=== PATIENT | male | born 1970 | race African-American/Black ===

== ENCOUNTER 2017-07-13 10:31 | Emergency (ER) | payer SELFPAY ==
[~2017-07-13] VITALS: Ht 177.8 cm; Wt 79.4 kg
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
[2017-07-13 11:09] LABS: BASO % 0 % (0-3); EOS % 3 % (0-3); HEMATOCRIT 31.1 % (39.0-53.0); LYMPH # 1.2 x10^3/uL (1.0-4.8); LYMPH % 26 % (24-48); MEAN CORPUSCULAR HEMOGLOBIN 31 pg (25-35); MEAN CORPUSCULAR HGB CONC 32 g/dL (31-37); MEAN CORPUSCULAR VOLUME 95 fL (79-100); MONO % 15 % (0-9); NEUT % 56 % (31-73); PLATELET COUNT 214 x10^3/uL (140-400); RED BLOOD COUNT 3.28 x10^6/uL (4.30-5.70); RED CELL DISTRIBUTION WIDTH 21.6 % (11.5-14.5); WHITE BLOOD COUNT 4.6 x10^3/uL (4.0-11.0)
[2017-07-13 11:27] LABS: ALBUMIN/GLOBULIN RATIO 0.6 (1.0-1.7); CREATININE 13.7 mg/dL (0.7-1.3); GFR 4.7; TOTAL BILIRUBIN 0.5 mg/dL (0.2-1.0)
[2017-07-13 11:31] LABS: POTASSIUM 7.2 mmol/L (3.5-5.1)
[2017-07-13 11:37] LABS: CKMB MASS 2.2 ng/mL (0.0-3.6)
[2017-07-13 11:49] LABS: ANISOCYTOSIS MOD; PLT ESTIMATE ADEQUATE (ADEQUATE)
[2017-07-13 11:51] LABS: POLYCHROMASIA SLIGHT
--- NOTE | 2017-07-13 11:52 | RAD ---
Examination: 2 views of chest. History: History of shortness of breath Comparison: None available Findings: Mild cardiomegaly identified. There is mild prominent appearing bilateral interstitial lung markings likely mild congestive changes. Trace right pleural effusion. Impression: 1. Mild prominent appearing bilateral interstitial lung markings likely mild congestive change. 2. Trace right pleural effusion.
--- NOTE | 2017-07-13 11:57 | EKG ---
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
[2017-07-13 12:00] VITALS: BP 189/118
[2017-07-13] MEDS ORDERED: LIDO30CR TP (19:33)
[2017-07-13] MEDS ORDERED: ACET325T9 PO (19:43)
[2017-07-13] MEDS ORDERED: ONDA4TAB12 PO (19:43)
[2017-07-13] MEDS ORDERED: CLON0.1T PO (19:43)
[2017-07-13] MEDS ORDERED: POLY17PO29 PO (19:43)
[2017-07-13] MEDS ORDERED: SENN-37 PO (19:43)
[2017-07-13] MEDS ORDERED: SEVE2.4P PO (19:43)
[2017-07-13] MEDS ORDERED: CARV12.5 PO (19:43)
[2017-07-13] MEDS ORDERED: [UNRECOGNIZED DRUG - CODE] PO (19:47)
[2017-07-13] MEDS ORDERED: HYDR-971 PO (19:47)
[2017-07-13] MEDS ORDERED: CALC500T PO ×2 (19:49)
[2017-07-13] MEDS ORDERED: LACT20SO PO (19:51)
== END 2017-07-13 12:40 | disposition left against medical advice (07) ==
LOC: ER 10:31
DX: I12.9 Hypertensive chronic kidney disease with stage 1 through stage 4 chronic kidney disease, or unspecified chronic kidney disease (principal); N18.9 Chronic kidney disease, unspecified; E87.5 Hyperkalemia; Z99.2 Dependence on renal dialysis; Z86.73 Personal history of transient ischemic attack (TIA), and cerebral infarction without residual deficits
CPT/HCPCS: 36415; 71020; 80053; 82553; 84484; 85025; 93005; 99285-25

== ENCOUNTER 2017-07-13 17:59 | Observation (INO) | payer SELFPAY ==
[~2017-07-13] VITALS: Ht 177.8 cm; Wt 76.0 kg
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
[2017-07-13 19:15] VITALS: BP 171/127
[2017-07-13 19:30] VITALS: BP 192/116
[2017-07-13] MEDS ORDERED: LIDO30CR TP (19:33)
[2017-07-13] MEDS ORDERED: CLON0.1T PO (19:43)
[2017-07-13] MEDS ORDERED: SEVE2.4P PO (19:43)
[2017-07-13] MEDS ORDERED: ONDA4TAB12 PO (19:43)
[2017-07-13] MEDS ORDERED: ACET325T9 PO (19:43)
[2017-07-13] MEDS ORDERED: CARV12.5 PO (19:43)
[2017-07-13] MEDS ORDERED: SENN-37 PO (19:43)
[2017-07-13] MEDS ORDERED: POLY17PO29 PO (19:43)
[2017-07-13] MEDS ORDERED: HYDR-971 PO (19:47)
[2017-07-13] MEDS ORDERED: [UNRECOGNIZED DRUG - CODE] PO (19:47)
[2017-07-13] MEDS ORDERED: CALC500T PO ×2 (19:49)
[2017-07-13] MEDS ORDERED: LACT20SO PO (19:51)
[2017-07-13] MEDS ORDERED: IV NORMAL SALINE 1000ML BAG 1,000 ML IV PRN ×2 (19:54)
[2017-07-13 20:00] VITALS: BP 188/118
[2017-07-13] MEDS ORDERED: DIALYSIS PATIENT. MC PRN (20:00)
[2017-07-13] MEDS ORDERED: diphenhydrAMINE 50 MG/ML VIAL IV PRN ×2 (20:00)
[2017-07-13 20:15] VITALS: BP 187/119
[2017-07-13] MEDS ORDERED: cloNIDine TTS-2 1 PATCH PATCH TD ONE (21:30)
[2017-07-13 22:00] VITALS: BP 183/96
[2017-07-14] VITALS (9 sets, daily range): BP systolic 138–175; BP diastolic 87–99
[2017-07-14] MEDS ORDERED: diphenhydrAMINE HCL 25 MG CAPSULE PO ONE
[2017-07-14] MEDS ORDERED: CARVEDILOL 12.5 MG TABLET. PO ONE (00:15)
--- NOTE | 2017-07-14 02:09 | ACF ---
Admission Forms Criteria HYPONATREMIA; HYPERNATREMIA; HYPOKALEMIA; HYPERKALEMIA; HYPOCALCEMIA; HYPERCALCEMIA Clinical Indications for Inpatient Care (Place 'X' for any and all applicable criteria): Ongoing inpatient care may be indicated for ANY ONE of the following [G](1)(2)(3 )(5): [ ]I. Hyponatremia with ANY ONE of the following: [ ]a) Sodium less than 130 mEq/L (mmol/L) (new) (6)(22) [ ]b) Sodium less than 135 mEq/L (mmol/L) with ANY ONE of the following: [ ]i) Severe medical etiology requiring inpatient management (eg, heart failure, hypovolemia) [ ]ii) Altered mental status [ ]iii) Seizures [ ]II. Hypernatremia with ANY ONE of the following: [ ]a) Sodium greater than 155 mEq/L (mmol/L) [ ]b) Sodium greater than 150 mEq/L (mmol/L) with ANY ONE of the following: [ ] i) Altered mental status [ ]ii) Seizures [ ]iii) Severe medical etiology (eg, hypovolemia, diabetes insipidus) [ ]iv) Severe weakness [ ]v) Severe medical etiology (eg, hemolysis, infection, drug overdose) [ ]III. Hypokalemia with ANY ONE of the following: [ ]a) Potassium less than 2.5 mEq/L (mmol/L) despite outpatient and emergency treatment [ ]b) Potassium less than 3.0 mEq/L (mmol/L) with ANY ONE of the following: [ ]i) Weakness [ ]ii) Cardiac abnormality (eg, arrhythmia, conduction disturbance) [ ]iii) Cardiac ischemia [ ]iv) Ileus [ ]v) Ongoing medical cause requiring inpatient management. ( e.g., acute renal wasting, SIADH) [ ]vi) Other severe symptoms [X] IV. Hyperkalemia with ANY ONE of the following: [X]a) Potassium greater than 6.5 mEq/L (mmol/L) [ ]b) Potassium greater than 5 mEq/L (mmol/L) with ANY ONE of the following: [ ]i) Severe ECG findings [H] [ ]ii) Acute worsening of renal failure (creatinine greater than 2.5 mg/dL (221 micromoles/L) or significant elevation for age and size) [ ] V. Hypocalcemia with ANY ONE of the following: [ ]a) Calcium less than 7 mg/dL (1.75 mmol/L) despite outpatient and emergency treatment(19) [ ]b) Calcium less than 8 mg/dL (2 mmol/L) with significant symptoms or findings; examples include: [ ]i) Cardiac abnormality (eg, arrhythmia or conduction disturbance) [ ]ii) Altered mental status [ ]iii) Seizures [ ]iv) Breathing difficulty [ ]v) Muscle spasms [ ]. Hypercalcemia with ANY ONE of the following: [ ]a) Calcium greater than 14 mg/dL (3.5 mmol/L) [ ]b) Calcium greater than 12 mg/dL (3 mmol/L) with ANY ONE of the following: [ ]i) Significant dehydration or hypovolemia as indicated by ANY ONE of the following(2): [ ]1. Clinically significant dehydration as indicated by ANY ONE of the following: [ ]A. Acute loss of weight from baseline (5% of body weight in adults, 9% in pediatric patients) [ ]B. Hemodynamic instability [ ]C. Acute renal failure [ ]D. Serum sodium greater than 150 mEq/L (mmol/L) [ ]2) Dehydration that is persistent indicated by ALL of the following: [ ]A. Oral rehydration therapy not tolerated or insufficient to adequately correct dehydration [ ]B. Appropriate intravenous treatment (eg, fluids ) does not readily correct dehydration ie, after 12 to 24 hours of treatment) [ ]ii) Significant symptoms or findings; examples include: [ ]1) Altered mental status [ ]2) Cardiac abnormality (eg, arrhythmia, conduction disturbance) [ ]3) Cardiac abnormality (eg, arrhythmia, conduction disturbance) The original [facility] content created by [facility] has been revised. The portions of the content which have been revised are identified through the use of italic text or in bold, and [facility] [employer] has neither reviewed nor approved the modified material. All other unmodified content is copyright [facility] [employer] Please see references footnoted in the original [facility] [employer] edition 2016 Admission Criteria Met?: Yes ISABELLA LARRY Jul 14, 2017 02:09
--- NOTE | 2017-07-14 06:22 | EKG ---
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
[2017-07-14] MEDS ORDERED: CARVEDILOL 12.5 MG TABLET. PO SCH (09:00)
--- NOTE | 2017-07-14 10:16 | PDOC2 ---
CONSULT Date of Consult Date of Consult DATE: 07/14/17 TIME: 10:08 Reason for Consult Reason for Consult: HIGH K Referring Physician Referring Physician: ZULEMA Identification/Chief Complaint Chief Complaint SOB Problems: Source Source: Chart review, Patient History of Present Illness Reason for Visit: THIS IS A 47 YR OLD WHO CAME IN YESTERDAY AM WITH SOB. LABS SHOWED A K OF 7.2. HE WENT AWAY AMA AND THEN CAME BACK LATER IN THE DAY. WOULD NOT ALLOW ANOTHER BLOOD DRAW. WAS AGREEABLE TO BE ADMITTED AND UNDERWENT EMERGENT HD LAST NIGHT. HE IS [facility] PT WHO IS NON COMPLIANT AND HAS MISSED MORE THAN A WEEK OF DIALYSIS Past Medical History Cardiovascular: HTN Heme/Onc: Anemia NOS Renal/: Chronic renal failure Endocrine: Hyperparathyroidism Past Surgical History Past Surgical History LEFT ARM AV ACCESS Family History Family History: Hypertension Social History Social History UNRELIABLE HE IN NOT COOPERATIVE No Current Problem List Problem List Problems Medical Problems: (1) Hyperkalemia Status: Acute (2) Renal failure Status: Acute Current Medications Current Medications Current Medications Sodium Chloride 1,000 ml @ 1,000 mls/hr Q1H PRN IV hypotension; Start 07/13/17 at 19:54; Stop 07/14/17 at 01:53; Status DC Diphenhydramine HCl (Benadryl) 25 mg 1X PRN PRN IV ITCHING; Start 07/13/17 at 20:00; Stop 07/14/17 at 19:59 Diphenhydramine HCl (Benadryl) 25 mg 1X PRN PRN IV ITCHING; Start 07/13/17 at 20:00; Stop 07/14/17 at 19:59 Sodium Chloride 1,000 ml @ 400 mls/hr Q2H30M PRN IV PATENCY; Start 07/13/17 at 19:54; Stop 07/14/17 at 07:53; Status DC Info (PHARMACY MONITORING -- do not chart) 1 each PRN DAILY PRN MC SEE COMMENTS ; Start 07/13/17 at 20:00 Clonidine HCl (Catapres Tts-2) 1 patch 1X ONCE TD Last administered on 00:00; Start 07/13/17 at 21:30; Stop 07/13/17 at 21:31; Status DC Carvedilol (Coreg) 25 mg BIDWMEALS PO Last administered on 07/14/17 09:08; Start 07/14/17 at 09:00 Diphenhydramine HCl (Benadryl) 25 mg 1X ONCE PO Last administered on 00:01; Start 07/14/17 at 00:00; Stop 07/14/17 at 00:01; Status DC Carvedilol (Coreg) 25 mg 1X ONCE PO Last administered on 07/14/17 00:01; Start 07/14/17 at 00:15; Stop 07/14/17 at 00:16; Status DC Active Scripts Active Reported Lactulose 20 Gm/30 Ml Solution 30 Gm PO prn hyperkalemia Calcium Carbonate 500 Mg Tablet 500 Mg PO Q4HRS PRN Calcium Carbonate 500 Mg Tablet 500 Mg PO QIDACHS Sodium Polystyrene Sulfonate 30 Gm/120 Ml Enema 30 Gm PO prn for hyperkalemia [place] 5-325 Tablet (Acetaminophen/Hydrocodone Bitart) 1 Each Tablet 1 Tab PO Q4HRS PRN Clonidine Hcl 0.1 Mg Tablet 0.1 Mg PO Q12HR give for SBP>160 or DBP>110 Tylenol (Acetaminophen) 325 Mg Tablet 650 Mg PO Q4HRS PRN Ondansetron Odt (Ondansetron) 4 Mg Tab.rapdis 4 Mg PO TIDBFRMEAL PRN Renvela (Sevelamer Carbonate) 2.4 Gm Powd.pack 0.8 Gm PO TIDWMEALS Senokot-S Tablet (Sennosides/Docusate Sodium) 1 Each Tablet 1 Tab PO BID Coreg (Carvedilol) 12.5 Mg Tablet 1 Tab PO BID Miralax (Polyethylene Glycol 3350) 17 Gm Powd.pack 1 Packet PO DAILY Lidocaine-Prilocaine Cream (Lidocaine/Prilocaine) 30 Gm Cream..g. 1 Gilma TP UD apply to fistula Q mon, wed, fri. Allergies Allergies: Coded Allergies: No Known Drug Allergies (Unverified , 12/06/13) ROS Review of System UNABLE TO GET, HE IS NOT COOPERATIVE Physical Exam General: Alert, Cooperative, No acute distress HEENT: Atraumatic, PERRLA Lungs: Clear to auscultation Heart: Regular rate Abdomen: Normal bowel sounds, No tenderness Extremities: No clubbing, No edema Neuro: Normal speech Psych/Mental Status: Other (VERY ANGRY MOOD) MUSCULOSKELETAL: No deformity, Other (AV ACCESS HAS A GOOD THRILL AND BRUIT) Vitals VITALS Vital Signs Date Time Temp Pulse Resp B/P (MAP) Pulse Ox O2 Delivery O2 Flow Rate FiO2 07/14/17 09:08 88 154/97 07/14/17 06:00 20 88 Room Air 07/14/17 04:00 98.9 98.9 07/13/17 23:59 2.0 Labs Labs Laboratory Tests Test 07/13/17 21:05 Potassium Level 3.6 mmol/L (3.5-5.1) Laboratory Tests Test 07/13/17 21:05 Potassium Level 3.6 mmol/L (3.5-5.1) Assessment/Plan Assessment/Plan IMP HYPERVOLEMIA HYPERKALEMIA ESRD ANEMIA PROBABLY NON COMPLIANCE PLAN HD EMERGENTLY DONE LAST NIGHT REFUSES DIALYSIS TODAY ALSO REFUSING LAB DRAWS TODAY POST HD LAB YESTERDAY DRAWN VIA MACHINE WAS WNL HE LOOKS STABLE WITHOUT ANY DYSPNEA AND K WNL WHEN LAST CHECKED SINCE HE DOES NOT WANT ANYTHING FURTHER DONE SUGGEST D/C HOME HE CAN GO BACK TO HIS CHRONIC UNIT AT SCHEDULED TIME ENC COMPLIANCE MARLYS HAGEN MD Jul 14, 2017 10:16
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
== END 2017-07-14 15:30 ==
LOC: ER 17:59 → 1 WEST ICU 18:44 → INTOOBSV 18:44
PROVIDERS: ADMIT Internal Medicine; ATTEND Internal Medicine
DX: E87.5 Hyperkalemia (principal); I12.0 Hypertensive chronic kidney disease with stage 5 chronic kidney disease or end stage renal disease; N18.6 End stage renal disease; E21.3 Hyperparathyroidism, unspecified; I69.354 Hemiplegia and hemiparesis following cerebral infarction affecting left non-dominant side; Z99.2 Dependence on renal dialysis; Z91.15 Patient's noncompliance with renal dialysis; Z82.49 Family history of ischemic heart disease and other diseases of the circulatory system
CPT/HCPCS: 36415; 71020; 80053; 82553; 84132; 84484; 85025; 87641; 93005; 99291; G0378; Q0163; G0379

== ENCOUNTER 2017-07-26 00:44 | Inpatient (IN) | payer MEDICARE, OTHER ==
[~2017-07-26] VITALS: Ht 177.8 cm; Wt 71.2 kg
[2017-07-26] VITALS (21 sets, daily range): BP systolic 105–182; BP diastolic 66–114
[~2017-07-26 00:44] MED LIST: ACET325T9 PO; CALC500T PO; CARV12.5 PO; CLON0.1T PO; HYDR-971 PO; LACT20SO PO; LIDO30CR TP; ONDA4TAB12 PO; POLY17PO29 PO; SENN-37 PO; SEVE2.4P PO; [UNRECOGNIZED DRUG - CODE] PO
[2017-07-26] MEDS ORDERED: ONDANSETRON PF 4 MG/2 ML VIAL. IV ONE (01:00)
[2017-07-26] MEDS ORDERED: ONDANSETRON PF 4 MG/2 ML VIAL. ONE (01:01)
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
[2017-07-26 01:28] LABS: CALCIUM 9.2 mg/dL (8.5-10.1); CREATININE 7.5 mg/dL (0.7-1.3); GFR 9.5; POTASSIUM 4.3 mmol/L (3.5-5.1)
[2017-07-26] MEDS ORDERED: IOHEXOL 300 MG/ML 75 ML VIAL ONE (01:30)
[2017-07-26 01:35] LABS: ALBUMIN/GLOBULIN RATIO 0.6 (1.0-1.7); TOTAL BILIRUBIN 0.5 mg/dL (0.2-1.0); TOTAL PROTEIN 7.7 g/dL (6.4-8.2)
[2017-07-26 01:37] LABS: BASO # 0.1 x10^3/uL (0.0-0.2); BASO % 1 % (0-3); EOS % 4 % (0-3); HEMATOCRIT 32.1 % (39.0-53.0); HEMOGLOBIN 10.4 g/dL (13.0-17.5); LYMPH # 1.1 x10^3/uL (1.0-4.8); LYMPH % 25 % (24-48); MEAN CORPUSCULAR HEMOGLOBIN 30 pg (25-35); MEAN CORPUSCULAR HGB CONC 32 g/dL (31-37); MEAN CORPUSCULAR VOLUME 93 fL (79-100); MONO % 18 % (0-9); NEUT % 52 % (31-73); PLATELET COUNT 182 x10^3/uL (140-400); RED BLOOD COUNT 3.46 x10^6/uL (4.30-5.70); RED CELL DISTRIBUTION WIDTH 19.8 % (11.5-14.5); WHITE BLOOD COUNT 4.5 x10^3/uL (4.0-11.0)
[2017-07-26] MEDS ORDERED: IOHEXOL 300 MG/ML 75 ML VIAL IV ONE (01:45)
--- NOTE | 2017-07-26 02:26 | RAD ---
INDICATION: chest/abd pain; Omni 300, 75ml COMPARISON: None. TECHNIQUE: Axial CT images obtained through the chest abdomen and pelvis with intravenous contrast. One or more of the following individualized dose reduction techniques were utilized for this examination: 1. Automated exposure control; 2. Adjustment of the mA and/or kV according to patient size; 3. Use of iterative reconstruction technique. FINDINGS: Chest: There are some cystic changes in the bilateral lungs. Mild groundglass opacities. Small right-sided pleural effusion. No evidence of pneumothorax. Linear opacities right lung. Fluid is seen throughout the mediastinum. The heart appears enlarged including the atria. Coronary artery calcific atherosclerosis. No thoracic aortic aneurysm. ABDOMEN: Moderate calcific atherosclerosis without abdominal aortic aneurysm. There is edema throughout the soft tissues. Small amount of ascites. Some of the regions measure higher than simple attenuation. No intrahepatic bile duct dilation. The gallbladder appears partially contracted with possible pericholecystic edema. Pancreas enhances. Spleen grossly unremarkable. The right kidney is displaced medially by the adjacent liver. No hydronephrosis. Bladder is largely decompressed. No definite dilated loops of bowel to suggest obstruction. IMPRESSION: Diffuse edema to the soft tissues with a small amount of ascites as well as right pleural effusion. Could be secondary to causes such as volume overload. A portion of the ascites measures slightly higher than simple attenuation. Given this finding a small amount of debris or blood within it is possible. There is also some fluid seen throughout the mediastinum. The heart is enlarged including atrial enlargement. Linear opacity right lung. Could be secondary to a region of atelectasis given the morphology which is the most likely cause with infiltrate considered less likely cause. Liver appears enlarged with deviation of the right kidney medially. Gallbladder appears partially contracted with suspected pericholecystic edema. Would correlate with symptoms in the region and if the patient has any symptoms and may be helpful to obtain a follow-up ultrasound or nuclear hepatobiliary scan to further evaluate and ensure that there is not gallbladder disease. Electronically signed by: Donovan Yung MD (07/26/2017 2:22 AM) [id number]
[2017-07-26] MEDS ORDERED: fentaNYL PF VIAL 100 MCG/2 ML VIAL IV PRN (03:00)
[2017-07-26] MEDS ORDERED: LABETALOL 20 MG/4 ML DISP.SYRIN. IVP ONE ×2 (03:00→06:15)
[2017-07-26] MEDS ORDERED: ONDANSETRON PF 4 MG/2 ML VIAL. IV PRN (03:00)
--- NOTE | 2017-07-26 06:23 | EKG ---
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
[2017-07-26] MEDS: SENNOSIDES/DOCUSATE 8.6/50MG TABLET. PO SCH ×2 (10:00→21:00)
[2017-07-26] MEDS ORDERED: ONDANSETRON ODT 4 MG TAB.RAPDIS. PO PRN (10:15)
[2017-07-26] MEDS ORDERED: ACETAMINOPHEN 325 MG TABLET. PO PRN (10:15)
[2017-07-26] MEDS ORDERED: CALCIUM CARBONATE 500 MG TABLET PO PRN (10:15)
[2017-07-26] MEDS ORDERED: HYDROcodone/APAP 5/325MG 1 TAB TABLET PO PRN (10:15)
[2017-07-26] MEDS: POLYETHYLENE GLYCOL 3350 17 GM PACKET. PO SCH (11:00)
[2017-07-26] MEDS ORDERED: cloNIDine TTS-3 1 PATCH PATCH.TDWK TD SCH (11:00)
--- NOTE | 2017-07-26 11:20 | RAD ---
EXAM: Abdomen sonogram. HISTORY: Pain. TECHNIQUE: Sonographic imaging of the abdomen was performed. COMPARISON: CT obtained on the same date. FINDINGS: The liver is enlarged. No focal hepatic lesion is seen. There is cholelithiasis. There is gone or wall thickening. The right kidney measures 8.9 cm [id number] and the left kidney measures 11.1 cm [id number]. No solid or cystic renal lesion is seen. There is no hydronephrosis. The pancreas, spleen, aorta and inferior vena cava are unremarkable. The common bile duct is normal in caliber, measuring 3 mm. IMPRESSION: 1. Cholelithiasis. There is superimposed gallbladder wall thickening which may be due to cholecystitis or intrinsic liver disease. Correlate with symptomatology. 2. Hepatomegaly. 3. Mildly decreased right renal size. This is likely underestimated due to slight under rotation of the right kidney demonstrated on the recent CT.
[2017-07-26] MEDS: CALCIUM CARBONATE 500 MG TABLET PO SCH ×3 (11:30→21:00)
[2017-07-26] MEDS ORDERED: LIDOCAINE/PRILOCAINE TOPICAL CREAM 5GM TUBE. TP SCH (11:30)
[2017-07-26] MEDS: SEVELAMER CARBONATE 800 MG TABLET. PO SCH ×2 (12:00→17:00)
--- NOTE | 2017-07-26 12:05 | PDOC2 ---
CONSULT Date of Consult Date of Consult DATE: 07/26/17 TIME: 11:59 Reason for Consult Reason for Consult: ESRD Referring Physician Referring Physician: ZULEMA Identification/Chief Complaint Chief Complaint ABD PAIN WITH N/V Problems: Source Source: Chart review, Patient History of Present Illness Reason for Visit: THIS IS A 47 YR OLD NON COMPLIANT ESRD PT ON OP HD ON MWF. ADMITTED WITH ABD PAIN/N/V AND INCREASED BP. LABS ARE C/W ESRD. ABD PAIN EVAL ONGOING. 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 Current Problem List Problem List Problems Medical Problems: (1) Hypertension Status: Acute (2) Intractable abdominal pain Status: Acute Current Medications Current Medications Current Medications Ondansetron HCl (Zofran) 4 mg STK-MED ONCE .ROUTE ; Start 07/26/17 at 01:01; Stop 07/26/17 at 01:02; Status DC Ondansetron HCl (Zofran) 4 mg 1X ONCE IV Last administered on 07/26/17 01:04 ; Start 07/26/17 at 01:00; Stop 07/26/17 at 01:04; Status DC Iohexol (Omnipaque 300 Mg/ml) 75 ml STK-MED ONCE .ROUTE ; Start 07/26/17 at 01: 30; Stop 07/26/17 at 01:31; Status DC Iohexol (Omnipaque 300 Mg/ml) 75 ml 1X ONCE IV Last administered on 07/26/17 01:37; Start 07/26/17 at 01:45; Stop 07/26/17 at 01:46; Status DC Labetalol HCl (Normodyne) 10 mg 1X ONCE IVP Last administered on 07/26/17 03: 01; Start 07/26/17 at 03:00; Stop 07/26/17 at 03:01; Status DC Ondansetron HCl (Zofran) 4 mg PRN Q8HRS PRN IV NAUSEA/VOMITING; Start 07/26/17 at 03:00; Stop 07/27/17 at 02:59 Fentanyl Citrate (Fentanyl 2ml Vial) 50 mcg PRN Q2HR PRN IV PAIN; Start at 03:00; Stop 07/27/17 at 02:59 Labetalol HCl (Normodyne) 20 mg 1X ONCE IVP Last administered on 07/26/17t 06: 12; Start 07/26/17 at 06:15; Stop 07/26/17 at 06:16; Status DC Acetaminophen (Tylenol) 650 mg Q4HRS PRN PO PAIN; Start 07/26/17 at 10:15 Calcium Carbonate/ Glycine (Oscal) 500 mg Q4HRS PRN PO INDIGESTION; Start 07/26 at 10:15 Calcium Carbonate/ Glycine (Oscal) 500 mg QIDACHS PO ; Start 07/26/17 at 11:30 Acetaminophen/ Hydrocodone Bitart (Lortab 5/325) 1 tab Q4HRS PRN PO PAIN; Start 07/26/17 at 10:15 Lidocaine/ Prilocaine (Emla) 1 gilma 1XDIA TP ; Start 07/26/17 at 11:30; Status UNV Ondansetron HCl (Zofran Odt) 4 mg TIDBFRMEAL PRN PO NAUSEA/VOMITING; Start at 10:15 Polyethylene Glycol (miraLAX PACKET) 17 gm DAILY PO ; Start 07/26/17 at 11:00 Senna/Docusate Sodium (Senna Plus) 1 tab BID PO ; Start 07/26/17 at 10:00 Sevelamer Carbonate (Renvela) 800 mg TIDWMEALS PO ; Start 07/26/17 at 12:00 Clonidine HCl (Catapres Tts-3) 1 patch WEEKLY TD ; Start 07/26/17 at 11:00 Carvedilol (Coreg) 25 mg BIDWMEALS PO ; Start 07/26/17 at 11:00 Active Scripts Active Reported Lactulose 20 Gm/30 Ml Solution 30 Gm PO prn hyperkalemia Calcium Carbonate 500 Mg Tablet 500 Mg PO Q4HRS PRN Calcium Carbonate 500 Mg Tablet 500 Mg PO QIDACHS Sodium Polystyrene Sulfonate 30 Gm/120 Ml Enema 30 Gm PO prn for hyperkalemia Selden 5-325 Tablet (Acetaminophen/Hydrocodone Bitart) 1 Each Tablet 1 Tab PO Q4HRS PRN Clonidine Hcl 0.1 Mg Tablet 0.1 Mg PO Q12HR give for SBP>160 or DBP>110 Tylenol (Acetaminophen) 325 Mg Tablet 650 Mg PO Q4HRS PRN Ondansetron Odt (Ondansetron) 4 Mg Tab.rapdis 4 Mg PO TIDBFRMEAL PRN Renvela (Sevelamer Carbonate) 2.4 Gm Powd.pack 0.8 Gm PO TIDWMEALS Senokot-S Tablet (Sennosides/Docusate Sodium) 1 Each Tablet 1 Tab PO BID Coreg (Carvedilol) 12.5 Mg Tablet 1 Tab PO BID Miralax (Polyethylene Glycol 3350) 17 Gm Powd.pack 1 Packet PO DAILY Lidocaine-Prilocaine Cream (Lidocaine/Prilocaine) 30 Gm Cream..g. 1 Gilma TP UD apply to fistula Q mon, wed, fri. Allergies Allergies: Coded Allergies: No Known Drug Allergies (Unverified , 12/06/13) ROS General: YES: Fatigue, Malaise, Appetite PSYCHOLOGICAL ROS: YES: Anxiety Eyes: Yes Decreased vision Respiratory: YES: Cough Gastrointestinal: Yes Nausea, Yes Vomiting, Yes Abdominal Pain Genitourinary: YES Other (ANURIA) Musculoskeletal: Yes Muscular Weakness Neurological: Yes Weakness Skin: Yes Dry Skin Physical Exam General: Alert, Cooperative, No acute distress HEENT: Atraumatic, PERRLA, EOMI Lungs: Clear to auscultation, Normal air movement Heart: Regular rate, Normal S1, Normal S2 Abdomen: Normal bowel sounds, Soft, No tenderness, Other (RUQ TENDERNESS TO PALPATION) Extremities: No clubbing, No edema Skin: No rashes Neuro: Normal speech, Cranial nerves 3-12 NL Psych/Mental Status: Other (FLAT AFFECT) MUSCULOSKELETAL: No joint tenderness, No deformity, No swelling, Other (LEFT ARM AVF HAS A GOOD THRILL AND BRUIT) Vitals VITALS Vital Signs Date Time Temp Pulse Resp B/P (MAP) Pulse Ox O2 Delivery O2 Flow Rate FiO2 07/26/17 07:00 Nasal Cannula 2.0 07/26/17 06:12 84 184/119 07/26/17 03:35 98.4 25 92 98.4 Labs Labs Laboratory Tests Test 07/26/17 01:06 White Blood Count 4.5 x10^3/uL (4.0-11.0) Red Blood Count 3.46 x10^6/uL (4.30-5.70) Hemoglobin 10.4 g/dL (13.0-17.5) Hematocrit 32.1 % (39.0-53.0) Mean Corpuscular Volume 93 fL (79-100) Mean Corpuscular Hemoglobin 30 pg (25-35) Mean Corpuscular Hemoglobin Concent 32 g/dL (31-37) Red Cell Distribution Width 19.8 % (11.5-14.5) Platelet Count 182 x10^3/uL (140-400) Neutrophils (%) (Auto) 52 % (31-73) Lymphocytes (%) (Auto) 25 % (24-48) Monocytes (%) (Auto) 18 % (0-9) Eosinophils (%) (Auto) 4 % (0-3) Basophils (%) (Auto) 1 % (0-3) Neutrophils # (Auto) 2.3 x10^3uL (1.8-7.7) Lymphocytes # (Auto) 1.1 x10^3/uL (1.0-4.8) Monocytes # (Auto) 0.8 x10^3/uL (0.0-1.1) Eosinophils # (Auto) 0.2 x10^3/uL (0.0-0.7) Basophils # (Auto) 0.1 x10^3/uL (0.0-0.2) Sodium Level 140 mmol/L (136-145) Potassium Level 4.3 mmol/L (3.5-5.1) Chloride Level 99 mmol/L (98-107) Carbon Dioxide Level 28 mmol/L (21-32) Anion Gap 13 (6-14) Blood Urea Nitrogen 48 mg/dL (8-26) Creatinine 7.5 mg/dL (0.7-1.3) Estimated GFR (Cockcroft-Gault) 9.5 BUN/Creatinine Ratio 6 (6-20) Glucose Level 116 mg/dL (70-99) Calcium Level 9.2 mg/dL (8.5-10.1) Total Bilirubin 0.5 mg/dL (0.2-1.0) Aspartate Amino Transf (AST/SGOT) 11 U/L (15-37) Alanine Aminotransferase (ALT/SGPT) 20 U/L (16-63) Alkaline Phosphatase 60 U/L (46-116) Troponin I Quantitative 0.050 ng/mL (0.000-0.055) Total Protein 7.7 g/dL (6.4-8.2) Albumin 3.0 g/dL (3.4-5.0) Albumin/Globulin Ratio 0.6 (1.0-1.7) Lipase 250 U/L (73-393) Laboratory Tests Test 07/26/17 01:06 White Blood Count 4.5 x10^3/uL (4.0-11.0) Red Blood Count 3.46 x10^6/uL (4.30-5.70) Hemoglobin 10.4 g/dL (13.0-17.5) Hematocrit 32.1 % (39.0-53.0) Mean Corpuscular Volume 93 fL (79-100) Mean Corpuscular Hemoglobin 30 pg (25-35) Mean Corpuscular Hemoglobin Concent 32 g/dL (31-37) Red Cell Distribution Width 19.8 % (11.5-14.5) Platelet Count 182 x10^3/uL (140-400) Neutrophils (%) (Auto) 52 % (31-73) Lymphocytes (%) (Auto) 25 % (24-48) Monocytes (%) (Auto) 18 % (0-9) Eosinophils (%) (Auto) 4 % (0-3) Basophils (%) (Auto) 1 % (0-3) Neutrophils # (Auto) 2.3 x10^3uL (1.8-7.7) Lymphocytes # (Auto) 1.1 x10^3/uL (1.0-4.8) Monocytes # (Auto) 0.8 x10^3/uL (0.0-1.1) Eosinophils # (Auto) 0.2 x10^3/uL (0.0-0.7) Basophils # (Auto) 0.1 x10^3/uL (0.0-0.2) Sodium Level 140 mmol/L (136-145) Potassium Level 4.3 mmol/L (3.5-5.1) Chloride Level 99 mmol/L (98-107) Carbon Dioxide Level 28 mmol/L (21-32) Anion Gap 13 (6-14) Blood Urea Nitrogen 48 mg/dL (8-26) Creatinine 7.5 mg/dL (0.7-1.3) Estimated GFR (Cockcroft-Gault) 9.5 BUN/Creatinine Ratio 6 (6-20) Glucose Level 116 mg/dL (70-99) Calcium Level 9.2 mg/dL (8.5-10.1) Total Bilirubin 0.5 mg/dL (0.2-1.0) Aspartate Amino Transf (AST/SGOT) 11 U/L (15-37) Alanine Aminotransferase (ALT/SGPT) 20 U/L (16-63) Alkaline Phosphatase 60 U/L (46-116) Troponin I Quantitative 0.050 ng/mL (0.000-0.055) Total Protein 7.7 g/dL (6.4-8.2) Albumin 3.0 g/dL (3.4-5.0) Albumin/Globulin Ratio 0.6 (1.0-1.7) Lipase 250 U/L (73-393) Assessment/Plan Assessment/Plan IMP ANEMIA ESRD HTN-EMERGENCY N/V/ABD PAIN PROB GASTROENTERITIS ?CHOLELITHIASIS/CYSTITIS PLAN ARANESP HD TODAY UF TO DW ENC COMPLIANCE CARDENE GTT HOLD KIMBERLYN TILL BP BETTER START PPN TILL ABLE TO EAT MARLYS HAGEN MD Jul 26, 2017 12:05
--- NOTE | 2017-07-26 12:28 | HP ---
ADMIT DATE: 07/26/2017 HISTORY OF PRESENT ILLNESS: Mr. Hogan is a 47-year-old -[place] male patient, a resident at [facility], who apparently had recurrent bouts of nausea, vomiting and abdominal pain. He had a total of 3 episodes of nausea and vomiting last evening. Had also abdominal pain, mostly in the epigastric area, that according to him has subsided this morning. He also had some central chest pain that was radiating to his back. The patient is very noncompliant with medications and hemodialysis and has refused medications and hemodialysis on multiple occasions. PAST MEDICAL HISTORY: Significant for right middle cerebral artery territory infarct with left side hemiplegia, hypertension. End-stage renal disease, on hemodialysis. Apparently had liver and lung surgery. Status post tapping. He also has arteriovenous fistula shunt in his left arm. ALLERGIES: He has no known drug allergies. MEDICATIONS: He is currently on acetaminophen 650 mg every 4 hours as needed, calcium carbonate 500 mg 4 times a day, carvedilol 12.5 mg twice a day, clonidine 0.1 mg three times a day, twice a day hydrocodone 5/325 one tablet every 4 hours, lactulose 20 grams in 30 mL p.o. daily p.r.n., lidocaine/prilocaine applied topically. He is also on ondansetron 4 mg p.o. every 4 hours as needed, polyethylene glycol 17 grams daily as needed for hypoglycemia, Senna-S 1 tablet twice a day, sevelamer (Renvela) 800 mg 3 times a day with meals, sodium polystyrene sulfonate 30 grams as needed for hyperkalemia. FAMILY HISTORY: Unremarkable. SOCIAL HISTORY: He is currently a resident at [facility]. He does not smoke, drink alcohol or use recreational drugs. REVIEW OF SYSTEMS: As per history of present illness. PHYSICAL EXAMINATION: GENERAL: On examining him on arrival to the Emergency Room, he was pale, not jaundiced, no cyanosis or thyromegaly. No jugular venous distention, no lower limb edema. VITAL SIGNS: Her heart rate was 80, blood pressure was 168/129, temperature was 98.7, respiratory rate was 18 and oxygen saturation was 96% on room air. HEAD, EYES, EARS, NOSE AND THROAT: Showed normocephalic, atraumatic. NECK: Supple. HEART: Showed normal first and second heart sounds, with no gallop, rub or murmur. CHEST: Clear to auscultation. No crepitation or rhonchi. ABDOMEN: Distended, soft, nontender. No guarding or rigidity. No organomegaly. Hernial orifices intact. Bowel sounds normal. NEUROLOGIC: He was awake, alert, responding appropriately. Cranial nerves intact. He has left-sided hemiplegia. LABORATORY WORK: Showed a white cell count 4500; hemoglobin 10; hematocrit 32; MCV 93; and platelet count of 182,000. His chemistry showed a serum sodium 140, potassium 4.3, chloride 99, bicarbonate 28, anion gap of 13, BUN 48, creatinine 7.5, estimated GFR was 9.5, glucose 116, calcium was 9.2. Total bilirubin, AST, ALT, alkaline phosphatase were normal. His total protein was 7.7, albumin 3. Serum lipase was 250. The patient has had a CT scan of the chest, abdomen and pelvis which basically showed that there was some fluid seen throughout the mediastinum. The heart is enlarged including atrial enlargement, and linear opacity in the right lung. Could be secondary a region of atelectasis, given that morphology, which is the most likely cause of the infiltrate likely cause. Liver appears enlarged with deviation of the right kidney medially. Gallbladder appears partially contracted, suspected pericholecystic edema, correlate with symptoms in the region. If the patient has any symptom, may be helpful to obtain a followup ultrasound and nuclear hepatobiliary scan to further evaluate and ensure that there is no gallbladder disease. PLAN: To consult the Nephrology team to dialyze him. I will start him on his blood pressure medications. I will increase his Coreg to 25 mg and I will start him also on clonidine TTS patch 0.3 mg. I will arrange for him to have abdominal ultrasound and we will decide on further management accordingly. SHIRLEY POOLE MD DR: JOSE ALBERTO/ritesh JOB#: [id number] / [id number]
[2017-07-26] MEDS ORDERED: IV NORMAL SALINE 1000ML BAG 1,000 ML IV PRN ×2 (12:54)
[2017-07-26] MEDS ORDERED: LIDOCAINE 1% PF 2 ML VIAL. ID STA (12:54)
[2017-07-26] MEDS ORDERED: diphenhydrAMINE 50 MG/ML VIAL IV PRN ×2 (13:00)
[2017-07-26] MEDS ORDERED: DIALYSIS PATIENT. MC PRN ×2 (13:00)
[2017-07-26] MEDS ORDERED: LABETALOL 20 MG/4 ML DISP.SYRIN. IVP PRN (13:00)
[2017-07-26] MEDS: CARVEDILOL 12.5 MG TABLET. PO SCH ×3 (13:09→21:00)
--- NOTE | 2017-07-26 17:33 | PDOC2 ---
CONSULT Date of Consult Date of Consult DATE: 07/26/17 TIME: 17:28 Reason for Consult Reason for Consult: abd pain Referring Physician Referring Physician: Robert Identification/Chief Complaint Chief Complaint abd pain Problems: Source Source: Chart review, Patient History of Present Illness Reason for Visit: 47 yo M with multiple medical problems reports N/V abd pain, he reports feeling somewhat better since his admission to the hospital. He notes the pain to be periumbilical in nature. Past Medical History Cardiovascular: HTN GI: Constipation Heme/Onc: Anemia NOS Renal/: Chronic renal failure Endocrine: Hyperparathyroidism Past Surgical History Past Surgical History: Other (reports previous xlap for trauma) Family History Family History: Hypertension Social History No ALCOHOL: none Lives: [facility] Current Problem List Problem List Problems Medical Problems: (1) Hypertension Status: Acute (2) Intractable abdominal pain Status: Acute Current Medications Current Medications Current Medications Ondansetron HCl (Zofran) 4 mg STK-MED ONCE .ROUTE ; Start 07/26/17 at 01:01; Stop 07/26/17 at 01:02; Status DC Ondansetron HCl (Zofran) 4 mg 1X ONCE IV Last administered on 07/26/17 01:04 ; Start 07/26/17 at 01:00; Stop 07/26/17 at 01:04; Status DC Iohexol (Omnipaque 300 Mg/ml) 75 ml STK-MED ONCE .ROUTE ; Start 07/26/17 at 01: 30; Stop 07/26/17 at 01:31; Status DC Iohexol (Omnipaque 300 Mg/ml) 75 ml 1X ONCE IV Last administered on 07/26/17 01:37; Start 07/26/17 at 01:45; Stop 07/26/17 at 01:46; Status DC Labetalol HCl (Normodyne) 10 mg 1X ONCE IVP Last administered on 07/26/17 03: 01; Start 07/26/17 at 03:00; Stop 07/26/17 at 03:01; Status DC Ondansetron HCl (Zofran) 4 mg PRN Q8HRS PRN IV NAUSEA/VOMITING; Start 07/26/17 at 03:00; Stop 07/27/17 at 02:59 Fentanyl Citrate (Fentanyl 2ml Vial) 50 mcg PRN Q2HR PRN IV PAIN; Start at 03:00; Stop 07/27/17 at 02:59 Labetalol HCl (Normodyne) 20 mg 1X ONCE IVP Last administered on 07/26/17 06: 12; Start 07/26/17 at 06:15; Stop 07/26/17 at 06:16; Status DC Acetaminophen (Tylenol) 650 mg Q4HRS PRN PO PAIN; Start 07/26/17 at 10:15 Calcium Carbonate/ Glycine (Oscal) 500 mg Q4HRS PRN PO INDIGESTION; Start 07/26 at 10:15 Calcium Carbonate/ Glycine (Oscal) 500 mg QIDACHS PO ; Start 07/26/17 at 11:30 Acetaminophen/ Hydrocodone Bitart (Lortab 5/325) 1 tab Q4HRS PRN PO PAIN; Start 07/26/17 at 10:15 Lidocaine/ Prilocaine (Emla) 1 gilma 1XDIA TP ; Start 07/26/17 at 11:30; Status UNV Ondansetron HCl (Zofran Odt) 4 mg TIDBFRMEAL PRN PO NAUSEA/VOMITING; Start at 10:15 Polyethylene Glycol (miraLAX PACKET) 17 gm DAILY PO ; Start 07/26/17 at 11:00 Senna/Docusate Sodium (Senna Plus) 1 tab BID PO ; Start 07/26/17 at 10:00 Sevelamer Carbonate (Renvela) 800 mg TIDWMEALS PO ; Start 07/26/17 at 12:00 Clonidine HCl (Catapres Tts-3) 1 patch WEEKLY TD Last administered on 13:00; Start 07/26/17 at 11:00 Carvedilol (Coreg) 25 mg BIDWMEALS PO Last administered on 07/26/17 13:09; Start 07/26/17 at 11:00 Sodium Chloride 1,000 ml @ 1,000 mls/hr Q1H PRN IV hypotension; Start 07/26/17 at 12:54; Stop 07/26/17 at 18:53 Diphenhydramine HCl (Benadryl) 25 mg 1X PRN PRN IV ITCHING; Start 07/26/17 at 13:00; Stop 07/27/17 at 12:59 Diphenhydramine HCl (Benadryl) 25 mg 1X PRN PRN IV ITCHING; Start 07/26/17 at 13:00; Stop 07/27/17 at 12:59 Labetalol HCl (Normodyne) 10 mg PRN Q1HR PRN IVP SBP > 180; Start 07/26/17 at 13:00; Stop 07/27/17 at 12:59 Sodium Chloride 1,000 ml @ 400 mls/hr Q2H30M PRN IV PATENCY; Start 07/26/17 at 12:54; Stop 07/27/17 at 00:53 Info (PHARMACY MONITORING -- do not chart) 1 each PRN DAILY PRN MC SEE COMMENTS ; Start 07/26/17 at 13:00; Status UNV Info (PHARMACY MONITORING -- do not chart) 1 each PRN DAILY PRN MC SEE COMMENTS ; Start 07/26/17 at 13:00 Lidocaine HCl (Xylocaine-Mpf 1% Vial) 0.5 ml 1X STAT ID Last administered on 13:23; Start 07/26/17 at 12:54; Stop 07/26/17 at 13:04; Status DC Nicardipine HCl 50 mg/Sodium Chloride 270 ml @ 0 mls/hr CONT PRN IV SEE I/O RECORD Last administered on 07/26/17 16:20; Start 07/26/17 at 13:45 Active Scripts Active Reported Lactulose 20 Gm/30 Ml Solution 30 Gm PO prn hyperkalemia Calcium Carbonate 500 Mg Tablet 500 Mg PO Q4HRS PRN Calcium Carbonate 500 Mg Tablet 500 Mg PO QIDACHS Sodium Polystyrene Sulfonate 30 Gm/120 Ml Enema 30 Gm PO prn for hyperkalemia Proctor 5-325 Tablet (Acetaminophen/Hydrocodone Bitart) 1 Each Tablet 1 Tab PO Q4HRS PRN Clonidine Hcl 0.1 Mg Tablet 0.1 Mg PO Q12HR give for SBP>160 or DBP>110 Tylenol (Acetaminophen) 325 Mg Tablet 650 Mg PO Q4HRS PRN Ondansetron Odt (Ondansetron) 4 Mg Tab.rapdis 4 Mg PO TIDBFRMEAL PRN Renvela (Sevelamer Carbonate) 2.4 Gm Powd.pack 0.8 Gm PO TIDWMEALS Senokot-S Tablet (Sennosides/Docusate Sodium) 1 Each Tablet 1 Tab PO BID Coreg (Carvedilol) 12.5 Mg Tablet 1 Tab PO BID Miralax (Polyethylene Glycol 3350) 17 Gm Powd.pack 1 Packet PO DAILY Lidocaine-Prilocaine Cream (Lidocaine/Prilocaine) 30 Gm Cream..g. 1 Gilma TP UD apply to fistula Q mon, wed, fri. Allergies Allergies: Coded Allergies: No Known Drug Allergies (Unverified , 12/06/13) ROS Gastrointestinal: Yes Nausea, Yes Vomiting, Yes Abdominal Pain Physical Exam General: Alert, Cooperative, No acute distress HEENT: Atraumatic, EOMI Lungs: Normal air movement Abdomen: Soft, Other (mild TTP, no masses, no hernias) Extremities: No clubbing, No cyanosis Skin: No rashes, No breakdown Neuro: Normal speech, Sensation intact Psych/Mental Status: Mental status NL, Mood NL Vitals VITALS Vital Signs Date Time Temp Pulse Resp B/P (MAP) Pulse Ox O2 Delivery O2 Flow Rate FiO2 07/26/17 13:09 91 181/112 07/26/17 08:45 15 Room Air 07/26/17 07:00 2.0 07/26/17 07:00 98.6 98.6 07/26/17 03:35 92 Labs Labs Laboratory Tests Test 07/26/17 01:06 White Blood Count 4.5 x10^3/uL (4.0-11.0) Red Blood Count 3.46 x10^6/uL (4.30-5.70) Hemoglobin 10.4 g/dL (13.0-17.5) Hematocrit 32.1 % (39.0-53.0) Mean Corpuscular Volume 93 fL (79-100) Mean Corpuscular Hemoglobin 30 pg (25-35) Mean Corpuscular Hemoglobin Concent 32 g/dL (31-37) Red Cell Distribution Width 19.8 % (11.5-14.5) Platelet Count 182 x10^3/uL (140-400) Neutrophils (%) (Auto) 52 % (31-73) Lymphocytes (%) (Auto) 25 % (24-48) Monocytes (%) (Auto) 18 % (0-9) Eosinophils (%) (Auto) 4 % (0-3) Basophils (%) (Auto) 1 % (0-3) Neutrophils # (Auto) 2.3 x10^3uL (1.8-7.7) Lymphocytes # (Auto) 1.1 x10^3/uL (1.0-4.8) Monocytes # (Auto) 0.8 x10^3/uL (0.0-1.1) Eosinophils # (Auto) 0.2 x10^3/uL (0.0-0.7) Basophils # (Auto) 0.1 x10^3/uL (0.0-0.2) Sodium Level 140 mmol/L (136-145) Potassium Level 4.3 mmol/L (3.5-5.1) Chloride Level 99 mmol/L (98-107) Carbon Dioxide Level 28 mmol/L (21-32) Anion Gap 13 (6-14) Blood Urea Nitrogen 48 mg/dL (8-26) Creatinine 7.5 mg/dL (0.7-1.3) Estimated GFR (Cockcroft-Gault) 9.5 BUN/Creatinine Ratio 6 (6-20) Glucose Level 116 mg/dL (70-99) Calcium Level 9.2 mg/dL (8.5-10.1) Total Bilirubin 0.5 mg/dL (0.2-1.0) Aspartate Amino Transf (AST/SGOT) 11 U/L (15-37) Alanine Aminotransferase (ALT/SGPT) 20 U/L (16-63) Alkaline Phosphatase 60 U/L (46-116) Troponin I Quantitative 0.050 ng/mL (0.000-0.055) Total Protein 7.7 g/dL (6.4-8.2) Albumin 3.0 g/dL (3.4-5.0) Albumin/Globulin Ratio 0.6 (1.0-1.7) Lipase 250 U/L (73-393) Laboratory Tests Test 07/26/17 01:06 White Blood Count 4.5 x10^3/uL (4.0-11.0) Red Blood Count 3.46 x10^6/uL (4.30-5.70) Hemoglobin 10.4 g/dL (13.0-17.5) Hematocrit 32.1 % (39.0-53.0) Mean Corpuscular Volume 93 fL (79-100) Mean Corpuscular Hemoglobin 30 pg (25-35) Mean Corpuscular Hemoglobin Concent 32 g/dL (31-37) Red Cell Distribution Width 19.8 % (11.5-14.5) Platelet Count 182 x10^3/uL (140-400) Neutrophils (%) (Auto) 52 % (31-73) Lymphocytes (%) (Auto) 25 % (24-48) Monocytes (%) (Auto) 18 % (0-9) Eosinophils (%) (Auto) 4 % (0-3) Basophils (%) (Auto) 1 % (0-3) Neutrophils # (Auto) 2.3 x10^3uL (1.8-7.7) Lymphocytes # (Auto) 1.1 x10^3/uL (1.0-4.8) Monocytes # (Auto) 0.8 x10^3/uL (0.0-1.1) Eosinophils # (Auto) 0.2 x10^3/uL (0.0-0.7) Basophils # (Auto) 0.1 x10^3/uL (0.0-0.2) Sodium Level 140 mmol/L (136-145) Potassium Level 4.3 mmol/L (3.5-5.1) Chloride Level 99 mmol/L (98-107) Carbon Dioxide Level 28 mmol/L (21-32) Anion Gap 13 (6-14) Blood Urea Nitrogen 48 mg/dL (8-26) Creatinine 7.5 mg/dL (0.7-1.3) Estimated GFR (Cockcroft-Gault) 9.5 BUN/Creatinine Ratio 6 (6-20) Glucose Level 116 mg/dL (70-99) Calcium Level 9.2 mg/dL (8.5-10.1) Total Bilirubin 0.5 mg/dL (0.2-1.0) Aspartate Amino Transf (AST/SGOT) 11 U/L (15-37) Alanine Aminotransferase (ALT/SGPT) 20 U/L (16-63) Alkaline Phosphatase 60 U/L (46-116) Troponin I Quantitative 0.050 ng/mL (0.000-0.055) Total Protein 7.7 g/dL (6.4-8.2) Albumin 3.0 g/dL (3.4-5.0) Albumin/Globulin Ratio 0.6 (1.0-1.7) Lipase 250 U/L (73-393) Images Images US notes some GB wall thickening, CT notes diffuse edema Assessment/Plan Assessment/Plan abd pain history most c/w gastroenteritis and should be self limiting. Pt is poor surgical candidate given multiple comorbidities and previous trauma surgery will ask GI to evaluate. Low suspicion that gallbladder is source of issue, as US findings may be secondary to systemic disease Thanks for consult! YARON RODRIGUEZ MD Jul 26, 2017 17:33
[2017-07-27] VITALS (18 sets, daily range): BP systolic 129–164; BP diastolic 66–108
[2017-07-27 05:53] LABS: BASO # 0.1 x10^3/uL (0.0-0.2); BASO % 2 % (0-3); EOS % 5 % (0-3); HEMATOCRIT 31.8 % (39.0-53.0); HEMOGLOBIN 10.1 g/dL (13.0-17.5); LYMPH # 1.2 x10^3/uL (1.0-4.8); LYMPH % 30 % (24-48); MEAN CORPUSCULAR HEMOGLOBIN 30 pg (25-35); MEAN CORPUSCULAR HGB CONC 32 g/dL (31-37); MEAN CORPUSCULAR VOLUME 94 fL (79-100); MONO % 18 % (0-9); NEUT % 45 % (31-73); PLATELET COUNT 155 x10^3/uL (140-400); RED BLOOD COUNT 3.39 x10^6/uL (4.30-5.70); RED CELL DISTRIBUTION WIDTH 19.6 % (11.5-14.5); WHITE BLOOD COUNT 3.9 x10^3/uL (4.0-11.0)
[2017-07-27 06:13] LABS: ALBUMIN 2.7 g/dL (3.4-5.0); ALBUMIN/GLOBULIN RATIO 0.6 (1.0-1.7); CALCIUM 8.7 mg/dL (8.5-10.1); CREATININE 5.9 mg/dL (0.7-1.3); GFR 12.6; POTASSIUM 4.2 mmol/L (3.5-5.1); TOTAL BILIRUBIN 0.5 mg/dL (0.2-1.0); TOTAL PROTEIN 7.1 g/dL (6.4-8.2)
[2017-07-27] MEDS: CALCIUM CARBONATE 500 MG TABLET PO SCH ×6 (07:30→21:00)
[2017-07-27] MEDS: SEVELAMER CARBONATE 800 MG TABLET. PO SCH ×3 (08:00→17:00)
[2017-07-27] MEDS: SENNOSIDES/DOCUSATE 8.6/50MG TABLET. PO SCH ×2 (08:58→20:42)
[2017-07-27] MEDS: POLYETHYLENE GLYCOL 3350 17 GM PACKET. PO SCH (08:59)
[2017-07-27] MEDS ORDERED: CARVEDILOL 12.5 MG TABLET. PO ONE (09:30)
--- NOTE | 2017-07-27 09:43 | PDOC2 ---
GI CONSULT Reason For Consult: Abd pain HPI: HPI: 47 y/o male from rehab, brought to ER w/ n/v. He tells me this has been ongoing for a couple weeks. This has apparently resolved and he is tolerating a normal diet. ESRD on HD, CT w/ diffuse soft tissue edema, small ascites, right pleural effusion. Also note hepatomegaly, contracted gallbladder w/ pericholecystic edema. Follow-up US showed cholelithiasis w/ superimposed gallbladder wall thickening w/ again noted hepatomegaly and normal CBD. Surgery has seen; feels symptoms likely 2/2 gastroenteritis w/ low suspicion for gallbladder source. He reports intermittent n/v and frequent heartburn treated w/ Tums. Denies abdominal pain currently. No diarrhea, has been having to strain to pass stool. He thinks he takes a pill for this. No previous EGD or colonoscopy. Emesis was red once after drinking cranberry juice ; he denies hematemesis, hematochezia, and melena. PMH: PMH: CVA, HTN, ESRD on HD, laparotomy following trauma to liver and lung FH: Family History: No pertinent hx Social History: Smoke: Quit ALCOHOL: none (previously drank "a little") Drugs: None (marijuana in the past) ROS: GEN: Denies fevers, chills, sweats HEENT: Denies blurred vision, sore throat CV: Denies chest pain RESP: Denies shortness of air, cough GI: Per HPI : Denies hematuria, dysuria ENDO: Denies weight changes NEURO: Denies confusion, dizziness MSK: Denies weakness, joint pain/swelling SKIN: Denies jaundice, pruritus Vitals: Vitals: Vital Signs Date Time Temp Pulse Resp B/P (MAP) Pulse Ox O2 Delivery O2 Flow Rate FiO2 07/27/17 08:30 98.0 72 20 146/100 (115) 92 Room Air 98.0 07/27/17 07:30 2.0 Labs: Labs: Laboratory Tests Test 07/27/17 05:30 White Blood Count 3.9 x10^3/uL (4.0-11.0) Red Blood Count 3.39 x10^6/uL (4.30-5.70) Hemoglobin 10.1 g/dL (13.0-17.5) Hematocrit 31.8 % (39.0-53.0) Mean Corpuscular Volume 94 fL (79-100) Mean Corpuscular Hemoglobin 30 pg (25-35) Mean Corpuscular Hemoglobin Concent 32 g/dL (31-37) Red Cell Distribution Width 19.6 % (11.5-14.5) Platelet Count 155 x10^3/uL (140-400) Neutrophils (%) (Auto) 45 % (31-73) Lymphocytes (%) (Auto) 30 % (24-48) Monocytes (%) (Auto) 18 % (0-9) Eosinophils (%) (Auto) 5 % (0-3) Basophils (%) (Auto) 2 % (0-3) Neutrophils # (Auto) 1.8 x10^3uL (1.8-7.7) Lymphocytes # (Auto) 1.2 x10^3/uL (1.0-4.8) Monocytes # (Auto) 0.7 x10^3/uL (0.0-1.1) Eosinophils # (Auto) 0.2 x10^3/uL (0.0-0.7) Basophils # (Auto) 0.1 x10^3/uL (0.0-0.2) Sodium Level 138 mmol/L (136-145) Potassium Level 4.2 mmol/L (3.5-5.1) Chloride Level 99 mmol/L (98-107) Carbon Dioxide Level 32 mmol/L (21-32) Anion Gap 7 (6-14) Blood Urea Nitrogen 28 mg/dL (8-26) Creatinine 5.9 mg/dL (0.7-1.3) Estimated GFR (Cockcroft-Gault) 12.6 BUN/Creatinine Ratio 5 (6-20) Glucose Level 88 mg/dL (70-99) Calcium Level 8.7 mg/dL (8.5-10.1) Total Bilirubin 0.5 mg/dL (0.2-1.0) Aspartate Amino Transf (AST/SGOT) 12 U/L (15-37) Alanine Aminotransferase (ALT/SGPT) 18 U/L (16-63) Alkaline Phosphatase 57 U/L (46-116) Total Protein 7.1 g/dL (6.4-8.2) Albumin 2.7 g/dL (3.4-5.0) Albumin/Globulin Ratio 0.6 (1.0-1.7) Lipase 223 U/L (73-393) Allergies: Coded Allergies: No Known Drug Allergies (Unverified , 12/06/13) Medications: Current Medications Medications (Trade) Dose Ordered Sig/Jone Route PRN Reason Start Time Stop Time Status Last Admin Dose Admin Calcium Carbonate/ Glycine (Oscal) 500 mg QIDACHS PO 07/26/17 11:30 07/26/17 21:00 Senna/Docusate Sodium (Senna Plus) 1 tab BID PO 07/26/17 10:00 07/27/17 08:58 Clonidine HCl (Catapres Tts-3) 1 patch WEEKLY TD 07/26/17 11:00 07/26/17 13:00 Carvedilol (Coreg) 25 mg BIDWMEALS PO 07/26/17 11:00 07/26/17 21:00 Lidocaine HCl (Xylocaine-Mpf 1% Vial) 0.5 ml 1X STAT ID 07/26/17 12:54 07/26/17 13:04 DC 07/26/17 13:23 Nicardipine HCl 50 mg/Sodium Chloride 270 ml @ 0 mls/hr CONT PRN IV SEE I/O RECORD 07/26/17 13:45 07/26/17 16:20 Imaging: Imaging: Chest/Abd/Pelv CT IMPRESSION: Diffuse edema to the soft tissues with a small amount of ascites as well as right pleural effusion. Could be secondary to causes such as volume overload. A portion of the ascites measures slightly higher than simple attenuation. Given this finding a small amount of debris or blood within it is possible. There is also some fluid seen throughout the mediastinum. The heart is enlarged including atrial enlargement. Linear opacity right lung. Could be secondary to a region of atelectasis given the morphology which is the most likely cause with infiltrate considered less likely cause. Liver appears enlarged with deviation of the right kidney medially. Gallbladder appears partially contracted with suspected pericholecystic edema. Would correlate with symptoms in the region and if the patient has any symptoms and may be helpful to obtain a follow-up ultrasound or nuclear hepatobiliary scan to further evaluate and ensure that there is not gallbladder disease. RUQ US IMPRESSION: 1. Cholelithiasis. There is superimposed gallbladder wall thickening which may be due to cholecystitis or intrinsic liver disease. Correlate with symptomatology. 2. Hepatomegaly. 3. Mildly decreased right renal size. This is likely underestimated due to slight under rotation of the right kidney demonstrated on the recent CT. (Also note normal CBD 3mm) PE: GEN: NAD HEENT: Atraumatic, PERRL LUNGS: clear HEART: RRR ABD: NABS, S/ND/NT EXTREMITY: No edema SKIN: No rashes, no jaundice NEURO/PSYCH: A & O 3 A/P: A/P: N/v, abd pain - resolved -imaging as above, edema and cholelithiasis Heartburn -frequent, untreated except for Tums Constipation ESRD on HD, HTN -- Eating breakfast. Will offer EGD for this afternoon. D/w RN. Has Miralax ordered - he refused this. Will add PPI. CHANCE VALENZUELA Jul 27, 2017 09:43
[2017-07-27 10:38] LABS: % EOS 3 % (0-5); NUCLEATED RBC 1
[2017-07-27 10:39] LABS: ANISOCYTOSIS PRESENT; PLT ESTIMATE ADEQUATE (ADEQUATE)
--- NOTE | 2017-07-27 11:17 | PDOC ---
Renal-Progress Notes Subjective Notes Notes NO NEW COMPLAINTS History of Present Illness Hx of present illness STABLE Vitals Vitals Vital Signs Date Time Temp Pulse Resp B/P (MAP) Pulse Ox O2 Delivery O2 Flow Rate FiO2 07/27/17 10:30 98.2 75 18 156/95 (115) 92 Room Air 98.2 07/27/17 08:05 2.0 Weight Weight [ ] I.O. Intake and Output Intake and Output 07/28/17 07:00 Intake Total 120 ml Balance 120 ml Intake Oral 120 ml Labs Labs Laboratory Tests Test 07/27/17 05:30 White Blood Count 3.9 x10^3/uL (4.0-11.0) Red Blood Count 3.39 x10^6/uL (4.30-5.70) Hemoglobin 10.1 g/dL (13.0-17.5) Hematocrit 31.8 % (39.0-53.0) Mean Corpuscular Volume 94 fL (79-100) Mean Corpuscular Hemoglobin 30 pg (25-35) Mean Corpuscular Hemoglobin Concent 32 g/dL (31-37) Red Cell Distribution Width 19.6 % (11.5-14.5) Platelet Count 155 x10^3/uL (140-400) Neutrophils (%) (Auto) 45 % (31-73) Lymphocytes (%) (Auto) 30 % (24-48) Monocytes (%) (Auto) 18 % (0-9) Eosinophils (%) (Auto) 5 % (0-3) Basophils (%) (Auto) 2 % (0-3) Neutrophils # (Auto) 1.8 x10^3uL (1.8-7.7) Lymphocytes # (Auto) 1.2 x10^3/uL (1.0-4.8) Monocytes # (Auto) 0.7 x10^3/uL (0.0-1.1) Eosinophils # (Auto) 0.2 x10^3/uL (0.0-0.7) Basophils # (Auto) 0.1 x10^3/uL (0.0-0.2) Segmented Neutrophils % 54 % (35-66) Band Neutrophils % 1 % (0-9) Lymphocytes % 33 % (24-48) Monocytes % 9 % (0-10) Eosinophils % 3 % (0-5) Nucleated Red Blood Cells 1 Platelet Estimate Adequate (ADEQUATE) Anisocytosis Present Sodium Level 138 mmol/L (136-145) Potassium Level 4.2 mmol/L (3.5-5.1) Chloride Level 99 mmol/L (98-107) Carbon Dioxide Level 32 mmol/L (21-32) Anion Gap 7 (6-14) Blood Urea Nitrogen 28 mg/dL (8-26) Creatinine 5.9 mg/dL (0.7-1.3) Estimated GFR (Cockcroft-Gault) 12.6 BUN/Creatinine Ratio 5 (6-20) Glucose Level 88 mg/dL (70-99) Calcium Level 8.7 mg/dL (8.5-10.1) Total Bilirubin 0.5 mg/dL (0.2-1.0) Aspartate Amino Transf (AST/SGOT) 12 U/L (15-37) Alanine Aminotransferase (ALT/SGPT) 18 U/L (16-63) Alkaline Phosphatase 57 U/L (46-116) Total Protein 7.1 g/dL (6.4-8.2) Albumin 2.7 g/dL (3.4-5.0) Albumin/Globulin Ratio 0.6 (1.0-1.7) Lipase 223 U/L (73-393) Review of Systems Constitutional: yes: weakness, alert Ears/Nose/Throat: Yes: no symptom reported Eyes: Yes: no symptom reported Pulmonary: Yes no symptom reported Cardiovascular: Yes no symptom reported Gastrointestional: Yes: nausea, epigastric pain Genitourinary: Yes: no symptom reported Musculoskeletal: Yes: muscle stiffness Skin: Yes no symptom reported Psychiatric/Neurological: Yes: no symptom reported Endocrine: Yes: no symptom reported Physical Exam General Appearance: no apparent distress Skin: warm Respiratory: bilateral CTA Heart: S1S2, RRR Abdomen: soft, bowel sounds present Genitourinary: bladder flat Extremities: pulses present Neurology: alert, oriented Assessment Assessment IMP ESRD ANEMIA NON COMPLIANCE HTN-BETTER GASTROENTERITIS PLAN HD TOMORROW STOP CLONIDINE PATCH CHANGE TO PO CLONIDINE ALSO ADD LOSARTAN CONT CARDENE GTT AND WEAN TOLERATED MARLYS HAGEN MD Jul 27, 2017 11:17
[2017-07-27] MEDS: PANTOPRAZOLE 40 MG TABLET.DR. PO SCH (11:30)
[2017-07-27] MEDS: cloNIDine HCL 0.1 MG TABLET PO SCH ×2 (12:00→20:42)
[2017-07-27] MEDS: LOSARTAN POTASSIUM 50 MG TABLET. PO SCH (12:00)
--- NOTE | 2017-07-27 13:02 | PDOC ---
[employer] 07/27/17 1302: SURGICAL PROGRESS NOTE Subjective pt not seen he is down for EGD plans for HIDA in AM will follow up on results Vital Signs Vital Signs Date Time Temp Pulse Resp B/P (MAP) Pulse Ox O2 Delivery O2 Flow Rate FiO2 07/27/17 12:14 98.6 73 18 145/91 (109) 94 Nasal Cannula 2.0 98.6 I&O Intake and Output 07/28/17 07:00 Intake Total 120 ml Balance 120 ml Intake Oral 120 ml Labs Laboratory Tests Test 07/26/17 01:06 07/26/17 05:13 07/27/17 05:30 White Blood Count 4.5 x10^3/uL (4.0-11.0) 3.9 x10^3/uL (4.0-11.0) Red Blood Count 3.46 x10^6/uL (4.30-5.70) 3.39 x10^6/uL (4.30-5.70) Hemoglobin 10.4 g/dL (13.0-17.5) 10.1 g/dL (13.0-17.5) Hematocrit 32.1 % (39.0-53.0) 31.8 % (39.0-53.0) Mean Corpuscular Volume 93 fL (79-100) 94 fL (79-100) Mean Corpuscular Hemoglobin 30 pg (25-35) 30 pg (25-35) Mean Corpuscular Hemoglobin Concent 32 g/dL (31-37) 32 g/dL (31-37) Red Cell Distribution Width 19.8 % (11.5-14.5) 19.6 % (11.5-14.5) Platelet Count 182 x10^3/uL (140-400) 155 x10^3/uL (140-400) Neutrophils (%) (Auto) 52 % (31-73) 45 % (31-73) Lymphocytes (%) (Auto) 25 % (24-48) 30 % (24-48) Monocytes (%) (Auto) 18 % (0-9) 18 % (0-9) Eosinophils (%) (Auto) 4 % (0-3) 5 % (0-3) Basophils (%) (Auto) 1 % (0-3) 2 % (0-3) Neutrophils # (Auto) 2.3 x10^3uL (1.8-7.7) 1.8 x10^3uL (1.8-7.7) Lymphocytes # (Auto) 1.1 x10^3/uL (1.0-4.8) 1.2 x10^3/uL (1.0-4.8) Monocytes # (Auto) 0.8 x10^3/uL (0.0-1.1) 0.7 x10^3/uL (0.0-1.1) Eosinophils # (Auto) 0.2 x10^3/uL (0.0-0.7) 0.2 x10^3/uL (0.0-0.7) Basophils # (Auto) 0.1 x10^3/uL (0.0-0.2) 0.1 x10^3/uL (0.0-0.2) Sodium Level 140 mmol/L (136-145) 138 mmol/L (136-145) Potassium Level 4.3 mmol/L (3.5-5.1) 4.2 mmol/L (3.5-5.1) Chloride Level 99 mmol/L (98-107) 99 mmol/L (98-107) Carbon Dioxide Level 28 mmol/L (21-32) 32 mmol/L (21-32) Anion Gap 13 (6-14) 7 (6-14) Blood Urea Nitrogen 48 mg/dL (8-26) 28 mg/dL (8-26) Creatinine 7.5 mg/dL (0.7-1.3) 5.9 mg/dL (0.7-1.3) Estimated GFR (Cockcroft-Gault) 9.5 12.6 BUN/Creatinine Ratio 6 (6-20) 5 (6-20) Glucose Level 116 mg/dL (70-99) 88 mg/dL (70-99) Calcium Level 9.2 mg/dL (8.5-10.1) 8.7 mg/dL (8.5-10.1) Total Bilirubin 0.5 mg/dL (0.2-1.0) 0.5 mg/dL (0.2-1.0) Aspartate Amino Transf (AST/SGOT) 11 U/L (15-37) 12 U/L (15-37) Alanine Aminotransferase (ALT/SGPT) 20 U/L (16-63) 18 U/L (16-63) Alkaline Phosphatase 60 U/L (46-116) 57 U/L (46-116) Troponin I Quantitative 0.050 ng/mL (0.000-0.055) Total Protein 7.7 g/dL (6.4-8.2) 7.1 g/dL (6.4-8.2) Albumin 3.0 g/dL (3.4-5.0) 2.7 g/dL (3.4-5.0) Albumin/Globulin Ratio 0.6 (1.0-1.7) 0.6 (1.0-1.7) Lipase 250 U/L (73-393) 223 U/L (73-393) Nasal Screen MRSA (PCR) Negative (Negative) Segmented Neutrophils % 54 % (35-66) Band Neutrophils % 1 % (0-9) Lymphocytes % 33 % (24-48) Monocytes % 9 % (0-10) Eosinophils % 3 % (0-5) Nucleated Red Blood Cells 1 Platelet Estimate Adequate (ADEQUATE) Anisocytosis Present Laboratory Tests Test 07/27/17 05:30 White Blood Count 3.9 x10^3/uL (4.0-11.0) Red Blood Count 3.39 x10^6/uL (4.30-5.70) Hemoglobin 10.1 g/dL (13.0-17.5) Hematocrit 31.8 % (39.0-53.0) Mean Corpuscular Volume 94 fL (79-100) Mean Corpuscular Hemoglobin 30 pg (25-35) Mean Corpuscular Hemoglobin Concent 32 g/dL (31-37) Red Cell Distribution Width 19.6 % (11.5-14.5) Platelet Count 155 x10^3/uL (140-400) Neutrophils (%) (Auto) 45 % (31-73) Lymphocytes (%) (Auto) 30 % (24-48) Monocytes (%) (Auto) 18 % (0-9) Eosinophils (%) (Auto) 5 % (0-3) Basophils (%) (Auto) 2 % (0-3) Neutrophils # (Auto) 1.8 x10^3uL (1.8-7.7) Lymphocytes # (Auto) 1.2 x10^3/uL (1.0-4.8) Monocytes # (Auto) 0.7 x10^3/uL (0.0-1.1) Eosinophils # (Auto) 0.2 x10^3/uL (0.0-0.7) Basophils # (Auto) 0.1 x10^3/uL (0.0-0.2) Segmented Neutrophils % 54 % (35-66) Band Neutrophils % 1 % (0-9) Lymphocytes % 33 % (24-48) Monocytes % 9 % (0-10) Eosinophils % 3 % (0-5) Nucleated Red Blood Cells 1 Platelet Estimate Adequate (ADEQUATE) Anisocytosis Present Sodium Level 138 mmol/L (136-145) Potassium Level 4.2 mmol/L (3.5-5.1) Chloride Level 99 mmol/L (98-107) Carbon Dioxide Level 32 mmol/L (21-32) Anion Gap 7 (6-14) Blood Urea Nitrogen 28 mg/dL (8-26) Creatinine 5.9 mg/dL (0.7-1.3) Estimated GFR (Cockcroft-Gault) 12.6 BUN/Creatinine Ratio 5 (6-20) Glucose Level 88 mg/dL (70-99) Calcium Level 8.7 mg/dL (8.5-10.1) Total Bilirubin 0.5 mg/dL (0.2-1.0) Aspartate Amino Transf (AST/SGOT) 12 U/L (15-37) Alanine Aminotransferase (ALT/SGPT) 18 U/L (16-63) Alkaline Phosphatase 57 U/L (46-116) Total Protein 7.1 g/dL (6.4-8.2) Albumin 2.7 g/dL (3.4-5.0) Albumin/Globulin Ratio 0.6 (1.0-1.7) Lipase 223 U/L (73-393) Problem List Problems Medical Problems: (1) Hypertension Status: Acute (2) Intractable abdominal pain Status: Acute Problems: JESSICA COHN MD 07/27/17 1610: SURGICAL PROGRESS NOTE Assessment/Plan EGD results noted await PIPIDA results Problems: LOWELL LEONE APRN Jul 27, 2017 13:02 JESSICA COHN MD Jul 27, 2017 16:10
[2017-07-27] MEDS ORDERED: IV RINGERS,LACTATED 1000ML 1,000 ML IV SCH (13:15)
[2017-07-27] MEDS ORDERED: IV NORMAL SALINE 1000ML BAG 1,000 ML IV ONE (13:30)
[2017-07-27] MEDS ORDERED: MIDAZOLAM HCL/PF 5 MG/5 ML VIAL. ONE (14:11)
[2017-07-27] MEDS ORDERED: diphenhydrAMINE 50 MG/ML VIAL ONE (14:12)
[2017-07-27] MEDS ORDERED: fentaNYL PF VIAL 100 MCG/2 ML VIAL ONE (14:12)
[2017-07-27] MEDS ORDERED: diphenhydrAMINE 50 MG/ML VIAL IV ONE (14:25)
[2017-07-27] MEDS ORDERED: MIDAZOLAM HCL/PF 5 MG/5 ML VIAL. IV ONE ×4 (14:25→14:31)
[2017-07-27] MEDS ORDERED: fentaNYL PF VIAL 100 MCG/2 ML VIAL IV ONE ×2 (14:25→14:29)
[2017-07-27 14:27] LABS: HEP B SURFACE ABDY Non Reactive (.)
--- NOTE | 2017-07-27 14:37 | PDOC4 ---
Operative Note Operative Note EGD with biopsies Meds Versed 4mg/Fentanyl 100 mcg/Benadryl 50 mg IV Pre-op dx N/V/heartburn Post-op dx reflux esophagitis S/p bx non-erosive gastritis plan advanced diet PROPNEYMAR PEREZ MD Jul 27, 2017 14:37
[2017-07-27] MEDS: CARVEDILOL 12.5 MG TABLET. PO SCH (17:16)
[2017-07-28 03:00] VITALS: BP 154/104
[2017-07-28 05:45] LABS: HEMATOCRIT 32.2 % (39.0-53.0); HEMOGLOBIN 10.2 g/dL (13.0-17.5); RED BLOOD COUNT 3.44 x10^6/uL (4.30-5.70); RED CELL DISTRIBUTION WIDTH 20.3 % (11.5-14.5)
[2017-07-28 06:17] LABS: CALCIUM 8.8 mg/dL (8.5-10.1); GFR 8.8; POTASSIUM 4.8 mmol/L (3.5-5.1)
--- NOTE | 2017-07-28 06:22 | PN ---
DATE: 07/27/2017 SUBJECTIVE: The patient is resting slightly propped up in bed, in no apparent respiratory distress. He continued to have mild nausea, and abdominal pain is less intense today. His blood pressure is also much better controlled on Coreg 25 mg twice a day as well as clonidine TTS 0.3 mg patch. PHYSICAL EXAMINATION: GENERAL: When I examined him this morning, he looked well and was clearly in no apparent respiratory distress. He was pale but not jaundiced or cyanosed. No thyromegaly. No jugular venous distention. No limb edema. VITAL SIGNS: His heart rate was 74, blood pressure 162/95, temperature was 98.2, respiratory rate was 20 and oxygen saturation was 91% on room air. HEAD, EYES, EARS, NOSE AND THROAT: Normocephalic, atraumatic. NECK: Supple. HEART: Showed normal first and second heart sounds. No gallop, rub or murmur. CHEST: Clear to auscultation. No crepitation or rhonchi. ABDOMEN: Distended, soft and nontender. No guarding or rigidity. No organomegaly. All hernial orifices intact. Bowel sounds normal. NEUROLOGIC: He is awake, alert, responding appropriately. Cranial nerves intact. He has left-sided hemiplegia. He is completely anuric and hemodialysis dependent. His intake was 1100. LABORATORY WORK: This morning showed a serum sodium 138, potassium 4.2, chloride 99, bicarbonate 32, anion gap of 7, BUN 28, creatinine 5.9. Estimated GFR was 12 mL per minute. His glucose was 88. Calcium was 8.7. Total bilirubin, AST, ALT and alkaline phosphatase were normal. Total protein 7.1, albumin 2.7. ASSESSMENT AND PLAN: 1. Recurrent bouts of nausea, vomiting and abdominal pain with a CT scan showing that the gallbladder appears partially contracted with possible pericholecystic edema. We did an abdominal ultrasound, which shows that there is cholelithiasis. There is superimposed gallbladder wall thickening, which may be due to cholecystitis or intrinsic liver disease. He has also hepatomegaly. 2. Accelerated hypertension, much better controlled. 3. End-stage renal disease, was dialyzed successfully yesterday. Other medical problems including right middle cerebral artery territory infarct with left-sided hemiplegia. 4. End-stage renal disease, on hemodialysis. The patient was seen by the Gastroenterology team as well as the General Surgery, and hepatobiliary scan ____ for tomorrow to elucidate the possibility of acute cholecystitis. SHIRLEY POOLE MD DR: JOSE ALBERTO/ritesh JOB#: [id number] / [id number]
[2017-07-28] MEDS: cloNIDine HCL 0.1 MG TABLET PO SCH ×3 (06:25→21:29)
[2017-07-28] MEDS: CALCIUM CARBONATE 500 MG TABLET PO SCH ×4 (07:30→21:28)
[2017-07-28] MEDS ORDERED: MORPHINE SULFATE 4 MG/ML DISP.SYRIN. IV ONE (08:00)
[2017-07-28] MEDS: POLYETHYLENE GLYCOL 3350 17 GM PACKET. PO SCH (09:00)
[2017-07-28] MEDS: SEVELAMER CARBONATE 800 MG TABLET. PO SCH ×3 (09:33→09:43)
[2017-07-28] MEDS: PANTOPRAZOLE 40 MG TABLET.DR. PO SCH ×2 (09:33→09:41)
[2017-07-28] MEDS: SENNOSIDES/DOCUSATE 8.6/50MG TABLET. PO SCH ×2 (09:34→21:28)
[2017-07-28] MEDS: LOSARTAN POTASSIUM 50 MG TABLET. PO SCH ×2 (09:36→13:00)
[2017-07-28] MEDS: CARVEDILOL 12.5 MG TABLET. PO SCH ×2 (09:36→16:54)
--- NOTE | 2017-07-28 10:17 | PDOC ---
Subjective: Subjective: Denies pain, n/v. Just back from HIDA, feels drowsy. Objective: Objective: 1 stool charted yesterday. Vital Signs: Vital Signs Date Time Temp Pulse Resp B/P (MAP) Pulse Ox O2 Delivery O2 Flow Rate FiO2 07/28/17 09:37 98 Room Air 2.0 07/28/17 09:36 166/108 07/28/17 08:11 16 07/28/17 06:25 77 07/28/17 03:00 97.7 97.7 Labs: Laboratory Tests Test 07/28/17 05:15 White Blood Count 4.0 x10^3/uL Red Blood Count 3.44 x10^6/uL Hemoglobin 10.2 g/dL Hematocrit 32.2 % Mean Corpuscular Volume 94 fL Mean Corpuscular Hemoglobin 30 pg Mean Corpuscular Hemoglobin Concent 32 g/dL Red Cell Distribution Width 20.3 % Platelet Count 147 x10^3/uL Sodium Level 139 mmol/L Potassium Level 4.8 mmol/L Chloride Level 100 mmol/L Carbon Dioxide Level 30 mmol/L Anion Gap 9 Blood Urea Nitrogen 40 mg/dL Creatinine 8.0 mg/dL Estimated GFR (Cockcroft-Gault) 8.8 Glucose Level 82 mg/dL Calcium Level 8.8 mg/dL Imaging: HIDA 07/28/17 PENDING EGD 07/27/17: reflux esophagitis S/p bx, non-erosive gastritis PE: GEN: NAD LUNGS: clear HEART: RRR ABD: S/ND/NT NEURO/PSYCH: A & O 3, drowsy A/P: N/v, abd pain - resolved -EGD yesterday: reflux s/p biopsy (path pending), gastritis -cholelithiasis Constipation - resolved ESRD on HD, HTN -- Continue PPI and Miralax, await HIDA (surgery following), follow-up re: path results. CHANCE VALENZUELA Jul 28, 2017 10:17
[2017-07-28 11:00] VITALS: BP 166/108
--- NOTE | 2017-07-28 11:10 | PATHOLOGY ---
PATHOLOGY REPORT * * * * * * * * FINAL DIAGNOSIS: Esophagus, distal, biopsy: - Superficial fragments of squamous epithelium with mild hyperplastic changes. - No significant inflammation present. - No columnar epithelium present. (M:deepthi; 07/28/2017) REPORT ELECTRONICALLY SIGNED BY: Audrey Jara M.D. DATE/TIME: 07/28/2017 11:09 * * * * * * * * GROSS PATHOLOGY: Received in formalin labeled "Negrito Montano distal esophagus biopsy" is a 0.5 x 0.4 x 0.1 cm aggregate of pink-bronson soft tissue fragments. The specimen is submitted in cassette A1. ([facility]; 07/27/2017) INITIAL CPT CODE(S): A; 73315 Professional services performed [place] [facility] [address] Technical services performed by [facility] at [address] [place] [address]. SPECIMEN(S) RECEIVED: A.Distal esophagus biopsy CLINICAL HISTORY: Abdominal pain PATIENT: NEGRITO MONTANO /AGE: 7 1970 (Age: 47) PATIENT #: [id number] ALT CASE #: SPECIMEN COLLECTION DATE: 07/27/2017 SPECIMEN RECEIVED DATE: 07/27/2017 [facility] - [address] [place] [address] - PHONE: [phone] * * * END OF REPORT * * *
[2017-07-28] MEDS ORDERED: LIDOCAINE 1% PF 2 ML VIAL. ID STA (11:58)
[2017-07-28] MEDS ORDERED: IV NORMAL SALINE 1000ML BAG 1,000 ML IV PRN (12:01)
[2017-07-28] MEDS ORDERED: DIALYSIS PATIENT. MC PRN (12:15)
--- NOTE | 2017-07-28 12:33 | PDOC ---
Renal-Progress Notes Subjective Notes Notes ABD PAIN IS GONE NOW History of Present Illness Hx of present illness STABLE Vitals Vitals Vital Signs Date Time Temp Pulse Resp B/P (MAP) Pulse Ox O2 Delivery O2 Flow Rate FiO2 07/28/17 11:13 77 166/108 07/28/17 11:00 97.7 18 96 Nasal Cannula 2.0 97.7 Weight Weight [ ] Labs Labs Laboratory Tests Test 07/28/17 05:15 White Blood Count 4.0 x10^3/uL (4.0-11.0) Red Blood Count 3.44 x10^6/uL (4.30-5.70) Hemoglobin 10.2 g/dL (13.0-17.5) Hematocrit 32.2 % (39.0-53.0) Mean Corpuscular Volume 94 fL (79-100) Mean Corpuscular Hemoglobin 30 pg (25-35) Mean Corpuscular Hemoglobin Concent 32 g/dL (31-37) Red Cell Distribution Width 20.3 % (11.5-14.5) Platelet Count 147 x10^3/uL (140-400) Sodium Level 139 mmol/L (136-145) Potassium Level 4.8 mmol/L (3.5-5.1) Chloride Level 100 mmol/L (98-107) Carbon Dioxide Level 30 mmol/L (21-32) Anion Gap 9 (6-14) Blood Urea Nitrogen 40 mg/dL (8-26) Creatinine 8.0 mg/dL (0.7-1.3) Estimated GFR (Cockcroft-Gault) 8.8 Glucose Level 82 mg/dL (70-99) Calcium Level 8.8 mg/dL (8.5-10.1) Review of Systems Constitutional: yes: weakness, alert Ears/Nose/Throat: Yes: no symptom reported Eyes: Yes: no symptom reported Pulmonary: Yes no symptom reported Cardiovascular: Yes no symptom reported Gastrointestional: Yes: nausea, epigastric pain Genitourinary: Yes: no symptom reported Musculoskeletal: Yes: muscle stiffness Skin: Yes no symptom reported Psychiatric/Neurological: Yes: no symptom reported Endocrine: Yes: no symptom reported Physical Exam General Appearance: no apparent distress Skin: warm Respiratory: bilateral CTA Heart: S1S2, RRR Abdomen: soft, bowel sounds present Genitourinary: bladder flat Extremities: pulses present Neurology: alert, oriented Assessment Assessment IMP ESRD ANEMIA NON COMPLIANCE HTN-STILL UNCONTROLLED GERD CHOLELITHIASIS PLAN HD TODAY UF TO DW INCREASE CLONIDINE INCREASE LOSARTAN CARDENE GTT NEEDED MARLYS HAGEN MD Jul 28, 2017 12:33
--- NOTE | 2017-07-28 14:31 | PDOC ---
SURGICAL PROGRESS NOTE Subjective drowsy, moans, did not answer much seen during dialysis Vital Signs Vital Signs Date Time Temp Pulse Resp B/P (MAP) Pulse Ox O2 Delivery O2 Flow Rate FiO2 07/28/17 13:41 130/67 07/28/17 11:13 77 07/28/17 11:00 97.7 18 96 Nasal Cannula 2.0 97.7 General: Alert, Cooperative, No acute distress Abdomen: Soft, No tenderness Labs Laboratory Tests Test 07/26/17 14:52 07/27/17 05:30 07/28/17 05:15 Hepatitis B Surface Antigen Negative (Negative) Hepatitis B Surface Antibody Non reactive (.) White Blood Count 3.9 x10^3/uL (4.0-11.0) 4.0 x10^3/uL (4.0-11.0) Red Blood Count 3.39 x10^6/uL (4.30-5.70) 3.44 x10^6/uL (4.30-5.70) Hemoglobin 10.1 g/dL (13.0-17.5) 10.2 g/dL (13.0-17.5) Hematocrit 31.8 % (39.0-53.0) 32.2 % (39.0-53.0) Mean Corpuscular Volume 94 fL (79-100) 94 fL (79-100) Mean Corpuscular Hemoglobin 30 pg (25-35) 30 pg (25-35) Mean Corpuscular Hemoglobin Concent 32 g/dL (31-37) 32 g/dL (31-37) Red Cell Distribution Width 19.6 % (11.5-14.5) 20.3 % (11.5-14.5) Platelet Count 155 x10^3/uL (140-400) 147 x10^3/uL (140-400) Neutrophils (%) (Auto) 45 % (31-73) Lymphocytes (%) (Auto) 30 % (24-48) Monocytes (%) (Auto) 18 % (0-9) Eosinophils (%) (Auto) 5 % (0-3) Basophils (%) (Auto) 2 % (0-3) Neutrophils # (Auto) 1.8 x10^3uL (1.8-7.7) Lymphocytes # (Auto) 1.2 x10^3/uL (1.0-4.8) Monocytes # (Auto) 0.7 x10^3/uL (0.0-1.1) Eosinophils # (Auto) 0.2 x10^3/uL (0.0-0.7) Basophils # (Auto) 0.1 x10^3/uL (0.0-0.2) Segmented Neutrophils % 54 % (35-66) Band Neutrophils % 1 % (0-9) Lymphocytes % 33 % (24-48) Monocytes % 9 % (0-10) Eosinophils % 3 % (0-5) Nucleated Red Blood Cells 1 Platelet Estimate Adequate (ADEQUATE) Anisocytosis Present Sodium Level 138 mmol/L (136-145) 139 mmol/L (136-145) Potassium Level 4.2 mmol/L (3.5-5.1) 4.8 mmol/L (3.5-5.1) Chloride Level 99 mmol/L (98-107) 100 mmol/L (98-107) Carbon Dioxide Level 32 mmol/L (21-32) 30 mmol/L (21-32) Anion Gap 7 (6-14) 9 (6-14) Blood Urea Nitrogen 28 mg/dL (8-26) 40 mg/dL (8-26) Creatinine 5.9 mg/dL (0.7-1.3) 8.0 mg/dL (0.7-1.3) Estimated GFR (Cockcroft-Gault) 12.6 8.8 BUN/Creatinine Ratio 5 (6-20) Glucose Level 88 mg/dL (70-99) 82 mg/dL (70-99) Calcium Level 8.7 mg/dL (8.5-10.1) 8.8 mg/dL (8.5-10.1) Total Bilirubin 0.5 mg/dL (0.2-1.0) Aspartate Amino Transf (AST/SGOT) 12 U/L (15-37) Alanine Aminotransferase (ALT/SGPT) 18 U/L (16-63) Alkaline Phosphatase 57 U/L (46-116) Total Protein 7.1 g/dL (6.4-8.2) Albumin 2.7 g/dL (3.4-5.0) Albumin/Globulin Ratio 0.6 (1.0-1.7) Lipase 223 U/L (73-393) Laboratory Tests Test 07/28/17 05:15 White Blood Count 4.0 x10^3/uL (4.0-11.0) Red Blood Count 3.44 x10^6/uL (4.30-5.70) Hemoglobin 10.2 g/dL (13.0-17.5) Hematocrit 32.2 % (39.0-53.0) Mean Corpuscular Volume 94 fL (79-100) Mean Corpuscular Hemoglobin 30 pg (25-35) Mean Corpuscular Hemoglobin Concent 32 g/dL (31-37) Red Cell Distribution Width 20.3 % (11.5-14.5) Platelet Count 147 x10^3/uL (140-400) Sodium Level 139 mmol/L (136-145) Potassium Level 4.8 mmol/L (3.5-5.1) Chloride Level 100 mmol/L (98-107) Carbon Dioxide Level 30 mmol/L (21-32) Anion Gap 9 (6-14) Blood Urea Nitrogen 40 mg/dL (8-26) Creatinine 8.0 mg/dL (0.7-1.3) Estimated GFR (Cockcroft-Gault) 8.8 Glucose Level 82 mg/dL (70-99) Calcium Level 8.8 mg/dL (8.5-10.1) Problem List Problems Medical Problems: (1) Hypertension Status: Acute (2) Intractable abdominal pain Status: Acute Assessment/Plan HIDA pending Problems: LOWELL LEONE APRN Jul 28, 2017 14:31
--- NOTE | 2017-07-28 15:12 | RAD ---
EXAM: Nuclear hepatobiliary scan with ejection fraction. HISTORY: Vomiting. Abnormal gallbladder on recent ultrasound. TECHNIQUE: Serial static images are obtained of the liver and biliary system in a frontal projection following IV administration of 5.5 mCi of technetium-99m Choletec. 4 mg of morphine were administered intravenously. FINDINGS: There is prompt hepatic clearance of tracer from the blood pool. There is homogeneous distribution throughout the liver. There is excretion into the biliary tree and small bowel. The gallbladder does not fill through 60 minutes. After morphine administration, filling of the gallbladder is noted. Biliary-gastric reflux is also noted. IMPRESSION: 1. The gallbladder fills after morphine administration, without evidence of acute cholecystitis. 2. Biliary-gastric reflux.
[2017-07-28 19:00] VITALS: BP 135/79
[2017-07-28 23:00] VITALS: BP 143/92
[2017-07-29 03:00] VITALS: BP 152/98
--- NOTE | 2017-07-29 03:54 | PN ---
DATE: 07/28/2017 SUBJECTIVE: The patient is resting, slightly propped up in bed, in no apparent respiratory distress. He is awake, alert. Denied any complaint. He underwent esophagogastroduodenoscopy yesterday which showed that he has reflux esophagitis and nonerosive gastritis. He was seen also by the surgical team and underwent hepatobiliary scan, the results of which is still pending at the time of this dictation. The nursing staff stated that he continued to have high blood pressure, despite treatment with clonidine and Coreg. When On questioning staff this morning, he looked well and denied any complaint. OBJECTIVE: GENERAL: When I examined him, he was resting slightly propped up, in no apparent respiratory distress, slightly pale, but no jaundice, cyanosis or thyromegaly. No jugular venous distention. No limb edema. VITAL SIGNS: Her heart rate was 77, blood pressure was 166/108, temperature was 97.7, respiratory rate was 16, and oxygen saturation was 98% on 2 liters of oxygen by nasal cannula. HEAD, EYES, EARS, NOSE AND THROAT: Showed normocephalic, atraumatic. NECK: Supple. HEART: Showed normal first and second heart sounds, with no gallop, rub or murmur. CHEST: Clear to auscultation. No crepitation or rhonchi. ABDOMEN: Distended, soft, nontender. NEUROLOGIC: He is awake, alert, responding appropriately. Has left-sided hemiplegia. ASSESSMENT: 1. Recurrent bouts of nausea, vomiting and abdominal pain. A CT scan showing that his gallbladder appears partially contracted with possible pericholecystic edema. Ultrasound showed that there are cholelithiasis with superimposed gallbladder wall thickening. He is scheduled for hepatobiliary scan today. He underwent upper GI endoscopy, which showed erosive esophagitis and gastritis. 2. Accelerated hypertension, somewhat better controlled, though not optimally so. 3. End-stage renal disease, with marked fluid overload and noncompliance with dialysis. The dialysis center stated that he was 12 pounds above his dry weight. 4. Right middle cerebral artery territory infarct with left-sided hemiplegia. Plan: I will add Procardia 30 mg to achieve a better control of his blood pressure. Meanwhile, we will continue with Coreg and clonidine. Await the result of the hepatobiliary scan. SHIRLEY POOLE MD DR: Joyce JOB#: [id number] / [id number]
[2017-07-29] MEDS: cloNIDine HCL 0.1 MG TABLET PO SCH ×2 (06:00→14:20)
[2017-07-29 07:00] VITALS: BP 135/92
[2017-07-29] MEDS: CALCIUM CARBONATE 500 MG TABLET PO SCH ×2 (07:30→11:30)
[2017-07-29] MEDS ORDERED: PANTOPRAZOLE 40 MG TABLET.DR. PO SCH (07:30)
[2017-07-29] MEDS: SEVELAMER CARBONATE 800 MG TABLET. PO SCH ×3 (08:00→12:00)
[2017-07-29] MEDS: CARVEDILOL 12.5 MG TABLET. PO SCH (08:44)
[2017-07-29] MEDS: LOSARTAN POTASSIUM 50 MG TABLET. PO SCH (08:45)
[2017-07-29] MEDS: SENNOSIDES/DOCUSATE 8.6/50MG TABLET. PO SCH (08:45)
[2017-07-29] MEDS: POLYETHYLENE GLYCOL 3350 17 GM PACKET. PO SCH (08:49)
[2017-07-29 11:00] VITALS: BP 127/79
--- NOTE | 2017-07-29 11:36 | PDOC ---
Renal-Progress Notes Subjective Notes Notes NO NEW COMPLAINTS History of Present Illness Hx of present illness STABLE Vitals Vitals Vital Signs Date Time Temp Pulse Resp B/P (MAP) Pulse Ox O2 Delivery O2 Flow Rate FiO2 07/29/17 08:45 68 135/92 07/29/17 08:00 Room Air 07/29/17 07:00 97.7 18 98 97.7 07/28/17 19:00 2.0 Weight Weight [ ] Review of Systems Constitutional: yes: weakness, alert Ears/Nose/Throat: Yes: no symptom reported Eyes: Yes: no symptom reported Pulmonary: Yes no symptom reported Cardiovascular: Yes no symptom reported Gastrointestional: Yes: nausea, epigastric pain Genitourinary: Yes: no symptom reported Musculoskeletal: Yes: muscle stiffness Skin: Yes no symptom reported Psychiatric/Neurological: Yes: no symptom reported Endocrine: Yes: no symptom reported Physical Exam General Appearance: no apparent distress Skin: warm Respiratory: bilateral CTA Heart: S1S2, RRR Abdomen: soft, bowel sounds present Genitourinary: bladder flat Extremities: pulses present Neurology: alert, oriented Assessment Assessment IMP ESRD ANEMIA NON COMPLIANCE HTN-BETTER GERD CHOLELITHIASIS PLAN HD MONDAY ENC COMPLIANCE MARLYS HAGEN MD Jul 29, 2017 11:36
--- NOTE | 2017-07-29 12:29 | PDOC ---
G I PROGRESS NOTE Reason for Follow-up abd pain/n/v Subjective Tolerating PO today Physical Exam Lungs clear CV S1 S2 ABD +BS, soft, nontender Review of Relevant I have reviewed the following items campbell (where applicable) has been applied. Labs Laboratory Tests Test 07/28/17 05:15 White Blood Count 4.0 x10^3/uL (4.0-11.0) Red Blood Count 3.44 x10^6/uL (4.30-5.70) Hemoglobin 10.2 g/dL (13.0-17.5) Hematocrit 32.2 % (39.0-53.0) Mean Corpuscular Volume 94 fL (79-100) Mean Corpuscular Hemoglobin 30 pg (25-35) Mean Corpuscular Hemoglobin Concent 32 g/dL (31-37) Red Cell Distribution Width 20.3 % (11.5-14.5) Platelet Count 147 x10^3/uL (140-400) Sodium Level 139 mmol/L (136-145) Potassium Level 4.8 mmol/L (3.5-5.1) Chloride Level 100 mmol/L (98-107) Carbon Dioxide Level 30 mmol/L (21-32) Anion Gap 9 (6-14) Blood Urea Nitrogen 40 mg/dL (8-26) Creatinine 8.0 mg/dL (0.7-1.3) Estimated GFR (Cockcroft-Gault) 8.8 Glucose Level 82 mg/dL (70-99) Calcium Level 8.8 mg/dL (8.5-10.1) Medications Current Medications Ondansetron HCl (Zofran) 4 mg STK-MED ONCE .ROUTE ; Start 07/26/17 at 01:01; Stop 07/26/17 at 01:02; Status DC Ondansetron HCl (Zofran) 4 mg 1X ONCE IV Last administered on 07/26/17t 01:04 ; Start 07/26/17 at 01:00; Stop 07/26/17 at 01:04; Status DC Iohexol (Omnipaque 300 Mg/ml) 75 ml STK-MED ONCE .ROUTE ; Start 07/26/17 at 01: 30; Stop 07/26/17 at 01:31; Status DC Iohexol (Omnipaque 300 Mg/ml) 75 ml 1X ONCE IV Last administered on 07/26/17 01:37; Start 07/26/17 at 01:45; Stop 07/26/17 at 01:46; Status DC Labetalol HCl (Normodyne) 10 mg 1X ONCE IVP Last administered on 07/26/17 03: 01; Start 07/26/17 at 03:00; Stop 07/26/17 at 03:01; Status DC Ondansetron HCl (Zofran) 4 mg PRN Q8HRS PRN IV NAUSEA/VOMITING; Start 07/26/17 at 03:00; Stop 07/27/17 at 02:59; Status DC Fentanyl Citrate (Fentanyl 2ml Vial) 50 mcg PRN Q2HR PRN IV PAIN; Start at 03:00; Stop 07/27/17 at 02:59; Status DC Labetalol HCl (Normodyne) 20 mg 1X ONCE IVP Last administered on 07/26/17 06: 12; Start 07/26/17 at 06:15; Stop 07/26/17 at 06:16; Status DC Acetaminophen (Tylenol) 650 mg Q4HRS PRN PO MILD PAIN; Start 07/26/17 at 10:15 Calcium Carbonate/ Glycine (Oscal) 500 mg Q4HRS PRN PO INDIGESTION; Start 07/26 at 10:15 Calcium Carbonate/ Glycine (Oscal) 500 mg QIDACHS PO Last administered on 21:28; Start 07/26/17 at 11:30 Acetaminophen/ Hydrocodone Bitart (Lortab 5/325) 1 tab Q4HRS PRN PO MODERATE - SEVERE PAIN Last administered on 07/28/17 09:37; Start 07/26/17 at 10:15 Lidocaine/ Prilocaine (Emla) 1 gilma 1XDIA TP ; Start 07/26/17 at 11:30; Status UNV Ondansetron HCl (Zofran Odt) 4 mg TIDBFRMEAL PRN PO NAUSEA/VOMITING; Start at 10:15 Polyethylene Glycol (miraLAX PACKET) 17 gm DAILY PO ; Start 07/26/17 at 11:00 Senna/Docusate Sodium (Senna Plus) 1 tab BID PO Last administered on 07/29/17 08:45; Start 07/26/17 at 10:00 Sevelamer Carbonate (Renvela) 800 mg TIDWMEALS PO ; Start 07/26/17 at 12:00 Clonidine HCl (Catapres Tts-3) 1 patch WEEKLY TD Last administered on 13:00; Start 07/26/17 at 11:00; Stop 07/27/17 at 11:19; Status DC Carvedilol (Coreg) 25 mg BIDWMEALS PO Last administered on 07/29/17 08:44; Start 07/26/17 at 11:00 Sodium Chloride 1,000 ml @ 1,000 mls/hr Q1H PRN IV hypotension; Start 07/26/17 at 12:54; Stop 07/26/17 at 18:53; Status DC Diphenhydramine HCl (Benadryl) 25 mg 1X PRN PRN IV ITCHING; Start 07/26/17 at 13:00; Stop 07/27/17 at 12:59; Status DC Diphenhydramine HCl (Benadryl) 25 mg 1X PRN PRN IV ITCHING; Start 07/26/17 at 13:00; Stop 07/27/17 at 12:59; Status DC Labetalol HCl (Normodyne) 10 mg PRN Q1HR PRN IVP SBP > 180; Start 07/26/17 at 13:00; Stop 07/27/17 at 12:59; Status DC Sodium Chloride 1,000 ml @ 400 mls/hr Q2H30M PRN IV PATENCY; Start 07/26/17 at 12:54; Stop 07/27/17 at 00:53; Status DC Info (PHARMACY MONITORING -- do not chart) 1 each PRN DAILY PRN MC SEE COMMENTS ; Start 07/26/17 at 13:00; Status UNV Info (PHARMACY MONITORING -- do not chart) 1 each PRN DAILY PRN MC SEE COMMENTS ; Start 07/26/17 at 13:00 Lidocaine HCl (Xylocaine-Mpf 1% Vial) 0.5 ml 1X STAT ID Last administered on 13:23; Start 07/26/17 at 12:54; Stop 07/26/17 at 13:04; Status DC Nicardipine HCl 50 mg/Sodium Chloride 270 ml @ 0 mls/hr CONT PRN IV SEE I/O RECORD Last administered on 07/26/17 16:20; Start 07/26/17 at 13:45 Carvedilol (Coreg) 25 mg 1X ONCE PO Last administered on 07/27/17 09:42; Start 07/27/17 at 09:30; Stop 07/27/17 at 09:31; Status DC Pantoprazole Sodium (Protonix) 40 mg DAILYAC PO ; Start 07/27/17 at 11:30; Stop 07/28/17 at 10:16; Status DC Clonidine HCl (Catapres) 0.1 mg Q8HRS PO Last administered on 07/28/17 06:25; Start 07/27/17 at 12:00; Stop 07/28/17 at 12:34; Status DC Losartan Potassium (Cozaar) 50 mg DAILY PO Last administered on 07/28/17 09:36 ; Start 07/27/17 at 12:00; Stop 07/28/17 at 12:34; Status DC Ringer's Solution 1,000 ml @ 100 mls/hr Q10H IV ; Start 07/27/17 at 13:15 Sodium Chloride 1,000 ml @ 100 mls/hr 1X ONCE IV Last administered on 13:25; Start 07/27/17 at 13:30; Stop 07/27/17 at 23:29; Status DC Midazolam HCl (Versed) 5 mg STK-MED ONCE .ROUTE ; Start 07/27/17 at 14:11; Stop 07/27/17 at 14:12; Status DC Fentanyl Citrate (Fentanyl 2ml Vial) 100 mcg STK-MED ONCE .ROUTE ; Start at 14:12; Stop 07/27/17 at 14:13; Status DC Diphenhydramine HCl (Benadryl) 50 mg STK-MED ONCE .ROUTE ; Start 07/27/17 at 14: 12; Stop 07/27/17 at 14:13; Status DC Diphenhydramine HCl (Benadryl) 50 mg STK-MED ONCE IV Last administered on 14:25; Start 07/27/17 at 14:25; Stop 07/27/17 at 15:39; Status DC Fentanyl Citrate (Fentanyl 2ml Vial) 100 mcg STK-MED ONCE IV Last administered on 07/27/17 14:25; Start 07/27/17 at 14:25; Stop 07/27/17 at 15:39; Status DC Midazolam HCl (Versed) 5 mg STK-MED ONCE IV Last administered on 07/27/17 14: 25; Start 07/27/17 at 14:25; Stop 07/27/17 at 15:39; Status DC Midazolam HCl (Versed) 5 mg STK-MED ONCE IV Last administered on 07/27/17 14: 27; Start 07/27/17 at 14:27; Stop 07/27/17 at 15:39; Status DC Fentanyl Citrate (Fentanyl 2ml Vial) 100 mcg STK-MED ONCE IV Last administered on 07/27/17 14:29; Start 07/27/17 at 14:29; Stop 07/27/17 at 15:39; Status DC Midazolam HCl (Versed) 5 mg STK-MED ONCE IV Last administered on 07/27/17 14: 29; Start 07/27/17 at 14:29; Stop 07/27/17 at 15:39; Status DC Midazolam HCl (Versed) 5 mg STK-MED ONCE IV Last administered on 07/27/17 14: 31; Start 07/27/17 at 14:31; Stop 07/27/17 at 15:39; Status DC Morphine Sulfate 4 mg 1X ONCE IV Last administered on 07/28/17 08:11; Start 07/28/17 at 08:00; Stop 07/28/17 at 08:01; Status DC Pantoprazole Sodium (Protonix) 40 mg DAILYAC PO Last administered on 07/29/17 07:26; Start 07/29/17 at 07:30 Nifedipine (Procardia Xl) 30 mg DAILY PO Last administered on 07/29/17 08:45; Start 07/28/17 at 11:00 Lidocaine HCl (Xylocaine-Mpf 1% Vial) 0.5 ml 1X STAT ID Last administered on 12:11; Start 07/28/17 at 11:58; Stop 07/28/17 at 12:00; Status DC Sodium Chloride 1,000 ml @ 1,000 mls/hr Q1H PRN IV hypotension; Start 07/28/17 at 12:01; Stop 07/28/17 at 18:00; Status DC Info (PHARMACY MONITORING -- do not chart) 1 each PRN DAILY PRN MC SEE COMMENTS ; Start 07/28/17 at 12:15; Status UNV Clonidine HCl (Catapres) 0.2 mg Q8HRS PO Last administered on 07/29/17 06:00; Start 07/28/17 at 14:00 Losartan Potassium (Cozaar) 100 mg DAILY PO Last administered on 07/29/17 08: 45; Start 07/28/17 at 13:00 Active Scripts Active Reported Lactulose 20 Gm/30 Ml Solution 30 Gm PO prn hyperkalemia Calcium Carbonate 500 Mg Tablet 500 Mg PO Q4HRS PRN Calcium Carbonate 500 Mg Tablet 500 Mg PO QIDACHS Sodium Polystyrene Sulfonate 30 Gm/120 Ml Enema 30 Gm PO prn for hyperkalemia Taconite 5-325 Tablet (Acetaminophen/Hydrocodone Bitart) 1 Each Tablet 1 Tab PO Q4HRS PRN Clonidine Hcl 0.1 Mg Tablet 0.1 Mg PO Q12HR give for SBP>160 or DBP>110 Tylenol (Acetaminophen) 325 Mg Tablet 650 Mg PO Q4HRS PRN Ondansetron Odt (Ondansetron) 4 Mg Tab.rapdis 4 Mg PO TIDBFRMEAL PRN Renvela (Sevelamer Carbonate) 2.4 Gm Powd.pack 0.8 Gm PO TIDWMEALS Senokot-S Tablet (Sennosides/Docusate Sodium) 1 Each Tablet 1 Tab PO BID Coreg (Carvedilol) 12.5 Mg Tablet 1 Tab PO BID Miralax (Polyethylene Glycol 3350) 17 Gm Powd.pack 1 Packet PO DAILY Lidocaine-Prilocaine Cream (Lidocaine/Prilocaine) 30 Gm Cream..g. 1 Gilma TP UD apply to fistula Q mon, wed, fri. Vitals/I & O Vital Sign - Last 24 Hours 07/28/17 07/28/17 07/28/17 07/28/17 13:00 13:41 16:54 19:00 Temp 97.5 97.5 Pulse 74 Resp 18 B/P (MAP) 130/87 130/67 156/84 135/79 (97) Pulse Ox 94 O2 Delivery Nasal Cannula O2 Flow Rate 2.0 07/28/17 07/28/17 07/28/17 07/29/17 20:00 21:29 23:00 03:00 Temp 96.4 97.7 96.4 97.7 Pulse 74 72 74 Resp 18 18 B/P (MAP) 135/79 143/92 (109) 152/98 (116) Pulse Ox 92 94 O2 Delivery Room Air Room Air Room Air 07/29/17 07/29/17 07/29/17 07/29/17 06:00 07:00 08:00 08:44 Temp 97.7 97.7 Pulse 74 68 68 Resp 18 B/P (MAP) 152/98 135/92 (106) 135/92 Pulse Ox 98 O2 Delivery Room Air Room Air 07/29/17 07/29/17 07/29/17 08:45 08:45 11:00 Temp 97.7 97.7 Pulse 68 68 72 Resp 18 B/P (MAP) 135/92 135/92 127/79 (95) Pulse Ox 96 O2 Delivery Room Air Problem List Problems Medical Problems: (1) Hypertension Status: Acute (2) Intractable abdominal pain Status: Acute Assessment Abd pain- with n/v, ESRD, most likely multifactorial in etiology, component of gastroparesis and/or chroinc cholecystitis with sluggish GB contributing, disposition plans noted. NEYMAR WORLEY MD Jul 29, 2017 12:29
--- NOTE | 2017-07-29 12:43 | PDOC ---
LOWELL LEONE SSAS DEVELOPER 07/29/17 1243: SURGICAL PROGRESS NOTE Subjective tolerating diet no abdominal pain no n/v Vital Signs Vital Signs Date Time Temp Pulse Resp B/P (MAP) Pulse Ox O2 Delivery O2 Flow Rate FiO2 07/29/17 11:00 97.7 72 18 127/79 (95) 96 Room Air 97.7 07/28/17 19:00 2.0 General: Alert, Oriented X3, Cooperative, No acute distress Abdomen: Soft, No tenderness Labs Laboratory Tests Test 07/28/17 05:15 White Blood Count 4.0 x10^3/uL (4.0-11.0) Red Blood Count 3.44 x10^6/uL (4.30-5.70) Hemoglobin 10.2 g/dL (13.0-17.5) Hematocrit 32.2 % (39.0-53.0) Mean Corpuscular Volume 94 fL (79-100) Mean Corpuscular Hemoglobin 30 pg (25-35) Mean Corpuscular Hemoglobin Concent 32 g/dL (31-37) Red Cell Distribution Width 20.3 % (11.5-14.5) Platelet Count 147 x10^3/uL (140-400) Sodium Level 139 mmol/L (136-145) Potassium Level 4.8 mmol/L (3.5-5.1) Chloride Level 100 mmol/L (98-107) Carbon Dioxide Level 30 mmol/L (21-32) Anion Gap 9 (6-14) Blood Urea Nitrogen 40 mg/dL (8-26) Creatinine 8.0 mg/dL (0.7-1.3) Estimated GFR (Cockcroft-Gault) 8.8 Glucose Level 82 mg/dL (70-99) Calcium Level 8.8 mg/dL (8.5-10.1) Problem List Problems Medical Problems: (1) Hypertension Status: Acute (2) Intractable abdominal pain Status: Acute Assessment/Plan no cystic duct obstruction--tolerating diet no surgical plans noted discharge plans Problems: JESSICA COHN MD 07/29/17 4879: SURGICAL PROGRESS NOTE Assessment/Plan agree with above Problems: LOWELL LEONE APRN Jul 29, 2017 12:43 JESSICA COHN MD Jul 29, 2017 13:59
[2017-07-29 14:20] VITALS: BP 127/79
--- NOTE | 2017-07-29 20:02 | DS ---
DATE OF DISCHARGE: 07/29/2017 HOSPITAL COURSE: The patient is a 47-year-old -[place] male patient, a resident at [facility] who was admitted with recurrent bouts of nausea, vomiting and abdominal pain. He was also found to have markedly accelerated hypertension and was about 12 kilograms above his dry weight. His CT scan showed features suggestive of possible acute cholecystitis; however, he has had ultrasound and hepatobiliary scan. Both did not confirm the acute cholecystitis. He was seen by the assistant professor of history, and upper GI endoscopy showed that he has reflux esophagitis and erosive gastritis. The Nephrology team has seen him on day he was dialyzed and was ultrafiltrated yesterday to his dry weight. We did adjust his antihypertensive medication. When I saw him this morning, he looked well and was clearly in no apparent respiratory distress. On questioning him, he denied any further episodes of nausea or vomiting. Denied any abdominal pain. His blood pressure is much better controlled. PHYSICAL EXAMINATION: GENERAL: When I examined him, he looked well and was clearly in no apparent respiratory distress, pale, not jaundiced or cyanosed, no thyromegaly. No jugular venous distention. No limb edema. VITAL SIGNS: His heart rate was 68, blood pressure was 135/93, temperature was 97.7, respiratory rate was 18 and oxygen saturation was 98%. HEAD, EYES, EARS, NOSE AND THROAT: Showed normocephalic and atraumatic. NECK: Supple. HEART: Showed normal first and second heart sounds with no gallop, rub or murmur. CHEST: Clear to auscultation. No crepitation or rhonchi. ABDOMEN: Distended, soft, nontender. No guarding or rigidity. No organomegaly. All hernial orifices intact. Bowel sounds normal. NEUROLOGIC: He is awake, alert, responding appropriately. His cranial nerves are intact. He has left-sided hemiplegia. He is completely anuric and hemodialysis dependent. LABORATORY WORK: As of yesterday showed a white cell count 4000, hemoglobin 10, hematocrit 32, MCV 94 and platelet count of 147,000. His chemistry is variable as he is hemodialysis dependent. His total bilirubin, AST, ALT and alkaline phosphatase are normal. Total protein 7.1, albumin 2.7. DISCHARGE MEDICATIONS: He was discharged back to [facility] to continue on Protonix 40 mg once a day, clonidine 0.2 mg every 8 hours, losartan potassium 100 mg once a day and nifedipine 30 mg p.o. daily. He is also on sevelamer 800 mg 3 times a day with meals, calcium carbonate 500 mg before meals and bedtime, carvedilol 25 mg twice a day, polyethylene glycol 17 grams daily, ondansetron 4 mg p.o. every 4 hours as needed, hydrocodone/APAP 5/325 one tablet every 4 hours as needed. He is on Senna S 1 tablet twice a day. FINAL DISCHARGE DIAGNOSES: 1. Recurrent bouts of nausea, vomiting and abdominal pain. His endoscopy showed that he has reflux esophagitis as well as ____ gastritis. 2. CT scan showed features suggestive of acute cholecystitis; however, ultrasound as well as hepatobiliary scan were negative. 3. Accelerated hypertension, much improved. 4. End-stage renal failure, on hemodialysis on Monday, Monday and Monday. 5. Marked fluid overload, the patient dialyzed and about a total of almost 8.5 liters were ultrafiltrated. 6. Right middle cerebral artery territory infarct with left-sided hemiplegia. SHIRLEY POOLE MD DR: JOSE ALBERTO/ritesh JOB#: [id number] / [id number]
[2017-08-29] MEDS ORDERED: ONDA4TAB7 PO (04:58)
[2017-08-29] MEDS ORDERED: LOSA100T2 PO (04:58)
[2017-08-29] MEDS ORDERED: BACL10TA PO (04:58)
[2017-08-29] MEDS ORDERED: NIFE30TA2 PO (04:58)
[2017-08-29] MEDS ORDERED: LORA0.5T PO (04:58)
[2017-08-29] MEDS ORDERED: CARV25TA PO (04:58)
[2017-08-29] MEDS ORDERED: ESCITALOPRAM OX10 MG PO (04:58)
[2017-08-29] MEDS ORDERED: MENT118G TP (04:58)
[2017-08-29] MEDS ORDERED: SUCR500T PO (04:58)
[2017-08-29] MEDS ORDERED: PANT40TA3 PO (04:58)
[2017-08-29] MEDS ORDERED: CLON0.2T PO (04:58)
[2017-08-29] MEDS ORDERED: OXYC9CAP PO (04:58)
[2017-10-17] MEDS ORDERED: LACT1CAP6 PO (13:51)
[2017-10-17] MEDS ORDERED: METO5TAB PO (13:51)
[2017-10-17] MEDS ORDERED: SEVE800T9 PO (13:51)
[2017-10-25] MEDS ORDERED: ATOR10TA60 PO (16:57)
== END 2017-07-29 15:40 | DRG 682 ==
LOC: ER 00:44 → 1 WEST ICU 02:51 → 5 NORTH 07-27 15:38
PROVIDERS: ADMIT Internal Medicine; ATTEND Internal Medicine
PROC: 5A1D00Z (ICD-10-PCS; 2017-07-26)
PROC: 0DB58ZX Excision of Esophagus, Via Natural or Artificial Opening Endoscopic, Diagnostic (ICD-10-PCS; principal; 2017-07-27 13:30)
DX: I12.0 Hypertensive chronic kidney disease with stage 5 chronic kidney disease or end stage renal disease (principal); N18.6 End stage renal disease; J90 Pleural effusion, not elsewhere classified; R18.8 Other ascites; E87.70 Fluid overload, unspecified; G81.94 Hemiplegia, unspecified affecting left nondominant side; K21.0 Gastro-esophageal reflux disease with esophagitis; K80.20 Calculus of gallbladder without cholecystitis without obstruction; K29.00 Acute gastritis without bleeding; N30.90 Cystitis, unspecified without hematuria; D64.9 Anemia, unspecified; K31.84 Gastroparesis; K59.00 Constipation, unspecified; Z82.49 Family history of ischemic heart disease and other diseases of the circulatory system; Z86.73 Personal history of transient ischemic attack (TIA), and cerebral infarction without residual deficits; Z91.14 Patient's other noncompliance with medication regimen; Z91.15 Patient's noncompliance with renal dialysis; Z91.19 Patient's noncompliance with other medical treatment and regimen; Z99.2 Dependence on renal dialysis
CPT/HCPCS: 36415; 71260; 74177; 76700; 78226; 80048; 80053; 83690; 84484; 85007; 85025; 85027; 86706; 87340; 87341; 87641; 88305; 93005; 96374; 96375; 99285; A9537; J1200; J2250; J2270; J2405; J3010; J3490; J7030; J7050; Q9967

== ENCOUNTER 2017-09-22 00:51 | Emergency (ER) | payer MEDICARE ==
[~2017-09-22] VITALS: Ht 177.8 cm; Wt 62.6 kg
[~2017-09-22 00:51] MED LIST changes: +BACL10TA PO; +CARV25TA PO; +CLON0.2T PO; +ESCITALOPRAM OX10 MG PO; +LORA0.5T PO; +LOSA100T2 PO; +MENT118G TP; +NIFE30TA2 PO; +ONDA4TAB7 PO; +OXYC9CAP PO; +PANT40TA3 PO; +SUCR500T PO
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
[2017-09-22] MEDS ORDERED: LIDOCAINE 1% / SOD BICARB 8.4% 20 ML VIAL. IJ ONE (01:30)
--- NOTE | 2017-09-22 02:33 | RAD ---
CT head without contrast: Reason for examination: Fell out of wheelchair with laceration to top of head. No previous exams are available for comparison. Axial images were obtained through the brain. No contrast was administered. Ventricular systems are prominent but symmetric. There is also prominence of the cerebral sulci and fissures suggesting some mild generalized cerebral atrophy. No midline shift is seen. There is no evidence of intracranial hemorrhage, infarct, mass or edema. No abnormalities are seen at the orbits. The paranasal sinuses and mastoid air cells are clear. No acute abnormality seen in the skull. IMPRESSION: Mild generalized cerebral atrophy. No acute intracranial abnormality evident. CT cervical spine without contrast: Helical images were obtained through the cervical spine from skull base through the thoracic apices with no contrast administered. Reconstruction was performed in sagittal and coronal planes. The C1 ring is intact. The odontoid process appears to be intact and normally centered between the lateral masses of C1. The vertebral bodies of the cervical spine show no acute fracture or subluxation is evident. There is however suggestion of some chronic compression deformity at the C4 and C5 vertebral bodies with some encroachment of posterior margins of the vertebral body on the spinal canal causing mild stenosis in the spinal canal. There do appear to be chronic appearing degenerative disc changes from C3 through C6 with loss of disc height at these levels. Prevertebral soft tissues are normal. IMPRESSION: Chronic compression deformities at the C4 and C5 levels with the posterior margins of these vertebral bodies causing mild stenosis of the spinal canal. No acute abnormality in the cervical spine. Exposure: One or more of the following individualized dose reduction techniques were utilized for this examination: 1. Automated exposure control 2. Adjustment of the mA and/or kV according to patient size 3. Use of iterative reconstruction technique. Electronically signed by: Monet Rossi MD (09/22/2017 2:30 AM) [place] [id number]
[2017-09-22 03:19] VITALS: BP 172/101
== END 2017-09-22 03:47 | disposition home or self-care (01) ==
LOC: ER 00:51
DX: S01.01XA Laceration without foreign body of scalp, initial encounter (principal); I12.9 Hypertensive chronic kidney disease with stage 1 through stage 4 chronic kidney disease, or unspecified chronic kidney disease; N18.9 Chronic kidney disease, unspecified; F12.10 Cannabis abuse, uncomplicated; Z86.73 Personal history of transient ischemic attack (TIA), and cerebral infarction without residual deficits; V00.811A Fall from moving wheelchair (powered), initial encounter; Y93.89 Activity, other specified; Y99.8 Other external cause status; Y92.89 Other specified places as the place of occurrence of the external cause
CPT/HCPCS: 12004; 70450; 72125; 99284-25

== ENCOUNTER 2017-10-24 20:02 | Inpatient (IN) | payer MEDICARE, OTHER ==
[2017-10-24 20:22] LABS: POC GLUCOSE 89 mg/dL (70-99)
[2017-10-24 20:29] LABS: ADD MAN DIFF? NO
[2017-10-24 20:32] LABS: BASO # 0.1 x10^3/uL (0.0-0.2); BASO % 1 % (0-3); EOS % 6 % (0-3); HEMOGLOBIN 9.6 g/dL (13.0-17.5); LYMPH # 0.8 x10^3/uL (1.0-4.8); LYMPH % 12 % (24-48); MEAN CORPUSCULAR HEMOGLOBIN 27 pg (25-35); MEAN CORPUSCULAR HGB CONC 32 g/dL (31-37); MEAN CORPUSCULAR VOLUME 84 fL (79-100); MONO % 11 % (0-9); NEUT % 70 % (31-73); PLATELET COUNT 262 x10^3/uL (140-400); RED BLOOD COUNT 3.59 x10^6/uL (4.30-5.70); WHITE BLOOD COUNT 6.3 x10^3/uL (4.0-11.0)
[2017-10-24 20:41] LABS: INR 1.2 (0.8-1.1); PARTIAL THROMBOPLASTIN TIME 34 SEC (24-38); PROTHROMBIN TIME PATIENT 14.2 SEC (11.7-14.0)
[2017-10-24 20:52] LABS: ALBUMIN 3.8 g/dL (3.4-5.0); ALK PHOS 89 U/L (46-116); ALT (SGPT) 28 U/L (16-63); ANION GAP 20 (6-14); AST (SGOT) 22 U/L (15-37); BLOOD UREA NITROGEN 126 mg/dL (8-26); CALCIUM 8.5 mg/dL (8.5-10.1); CARBON DIOXIDE 23 mmol/L (21-32); CHLORIDE 95 mmol/L (98-107); CREATININE 15.7 mg/dL (0.7-1.3); DIRECT BILIRUBIN 0.1 mg/dL (0.0-0.2); GFR 4.1; GLUCOSE 104 mg/dL (70-99); MAGNESIUM 2.4 mg/dL (1.8-2.4); SODIUM 138 mmol/L (136-145); TOTAL BILIRUBIN 0.4 mg/dL (0.2-1.0); TOTAL PROTEIN 8.9 g/dL (6.4-8.2)
[2017-10-24 20:55] LABS: AMMONIA < 10 mcmol/L (11-34)
[2017-10-24 20:57] LABS: POTASSIUM 6.8 mmol/L (3.5-5.1)
[2017-10-24 20:57] LABS: TROPONINI < 0.017 ng/mL (0.000-0.055)
[2017-10-24 20:59] LABS: CKMB INDEX 2.8 % (0-4); CKMB MASS 3.7 ng/mL (0.0-3.6); CREATINE KINASE 132 U/L (39-308)
[2017-10-24 21:02] LABS: NT-PRO BNP > 35000 pg/mL (0-124)
[2017-10-24] MEDS: hydrALAZINE 20 MG/ML VIAL. IVP (21:31)
[2017-10-24] MEDS: CALCIUM GLUCONATE 100 MG/ML VIAL for DOSE IN MG. IV (22:29)
[2017-10-24] MEDS: DEXTROSE 50% 25 GM / 50ML DISP.SYRIN. IV (22:32)
[2017-10-24] MEDS: SODIUM POLYSTYRENE SULFONATE 15 GM/60 ML ORAL.SUSP. PO (22:45)
[2017-10-24] MEDS: INSULIN REGULAR 100 UNIT/ML 10ML VIAL. IV (22:45)
[2017-10-24] MEDS: ONDANSETRON PF 4 MG/2 ML VIAL. IV ×2 (23:05)
[2017-10-24 23:47] LABS: POC GLUCOSE 93 mg/dL (70-99)
[2017-10-25] MEDS: SODIUM POLYSTYRENE SULFONATE 15 GM/60 ML ORAL.SUSP. PO (00:47)
[2017-10-25 05:29] LABS: ADD MAN DIFF? NO
[2017-10-25 05:41] LABS: BASO % 1 % (0-3); EOS % 2 % (0-3); HEMATOCRIT 30.2 % (39.0-53.0); HEMOGLOBIN 9.5 g/dL (13.0-17.5); LYMPH # 0.8 x10^3/uL (1.0-4.8); LYMPH % 11 % (24-48); MEAN CORPUSCULAR HEMOGLOBIN 26 pg (25-35); MEAN CORPUSCULAR HGB CONC 32 g/dL (31-37); MEAN CORPUSCULAR VOLUME 84 fL (79-100); MONO % 8 % (0-9); NEUT % 79 % (31-73); PLATELET COUNT 261 x10^3/uL (140-400); RED CELL DISTRIBUTION WIDTH 20.4 % (11.5-14.5); WHITE BLOOD COUNT 6.9 x10^3/uL (4.0-11.0)
[2017-10-25] MEDS: hydrALAZINE 20 MG/ML VIAL. IVP ×3 (05:53→22:12)
[2017-10-25 05:57] LABS: ANION GAP 22 (6-14); BLOOD UREA NITROGEN 138 mg/dL (8-26); CALCIUM 9.2 mg/dL (8.5-10.1); CARBON DIOXIDE 19 mmol/L (21-32); CHLORIDE 95 mmol/L (98-107); CREATININE 16.2 mg/dL (0.7-1.3); GFR 3.9; GLUCOSE 81 mg/dL (70-99); SODIUM 136 mmol/L (136-145)
[2017-10-25 06:03] LABS: POTASSIUM 7.5 mmol/L (3.5-5.1)
[2017-10-25] MEDS ORDERED: IV NORMAL SALINE 1000ML BAG 1,000 ML IV ×2 (06:40)
[2017-10-25] MEDS ORDERED: diphenhydrAMINE 50 MG/ML VIAL IV ×2 (06:45)
[2017-10-25] MEDS ORDERED: DIALYSIS PATIENT. MC (06:45)
[2017-10-25] MEDS ORDERED: DEXTROSE 50% 25 GM / 50ML DISP.SYRIN. IV (07:10)
[2017-10-25] MEDS: DEXTROSE 50% 25 GM / 50ML DISP.SYRIN. IV (07:28)
[2017-10-25] MEDS: INSULIN REGULAR 100 UNIT/ML 10ML VIAL. IV (07:29)
[2017-10-25] MEDS: CALCIUM GLUCONATE 1,000 MG/10 ML VIAL. IVP (07:30)
[2017-10-25 08:08] LABS: POTASSIUM 6.7 mmol/L (3.5-5.1)
[2017-10-25 09:29] LABS: ANISOCYTOSIS MOD; HYPOCHROMIA PRESENT; PLT ESTIMATE ADEQUATE (ADEQUATE)
[2017-10-25] MEDS ORDERED: MAGNESIUM SULFATE 2GM 50 ML IV (10:00)
[2017-10-25] MEDS ORDERED: fentaNYL PF VIAL 100 MCG/2 ML VIAL IV (14:30)
[2017-10-25] MEDS: DARBEPOETIN ALFA 60 MCG/0.3 ML DISP.SYRIN. SQ (21:50)
[2017-10-25] MEDS: ONDANSETRON PF 4 MG/2 ML VIAL. IV (21:58)
[2017-10-26 04:46] LABS: HEMATOCRIT 28.3 % (39.0-53.0); HEMOGLOBIN 9.1 g/dL (13.0-17.5); MEAN CORPUSCULAR HEMOGLOBIN 27 pg (25-35); MEAN CORPUSCULAR HGB CONC 32 g/dL (31-37); MEAN CORPUSCULAR VOLUME 84 fL (79-100); PLATELET COUNT 260 x10^3/uL (140-400); RED BLOOD COUNT 3.37 x10^6/uL (4.30-5.70); RED CELL DISTRIBUTION WIDTH 21.5 % (11.5-14.5); WHITE BLOOD COUNT 5.9 x10^3/uL (4.0-11.0)
[2017-10-26] MEDS: hydrALAZINE 20 MG/ML VIAL. IVP ×2 (05:22→20:02)
[2017-10-26 05:33] LABS: MAGNESIUM 1.9 mg/dL (1.8-2.4)
[2017-10-26 06:02] LABS: ALBUMIN/GLOBULIN RATIO 0.7 (1.0-1.7); ALK PHOS 75 U/L (46-116); ALT (SGPT) 20 U/L (16-63); ANION GAP 13 (6-14); AST (SGOT) 17 U/L (15-37); BLOOD UREA NITROGEN 68 mg/dL (8-26); BUN/CREATININE RATIO 6 (6-20); CALCIUM 8.9 mg/dL (8.5-10.1); CARBON DIOXIDE 32 mmol/L (21-32); CHLORIDE 96 mmol/L (98-107); CREATININE 11.8 mg/dL (0.7-1.3); GFR 5.6; GLUCOSE 86 mg/dL (70-99); POTASSIUM 5.3 mmol/L (3.5-5.1); SODIUM 141 mmol/L (136-145); TOTAL BILIRUBIN 0.4 mg/dL (0.2-1.0); TOTAL PROTEIN 7.6 g/dL (6.4-8.2)
[2017-10-26 06:43] LABS: PHOSPHORUS 7.4 mg/dL (2.6-4.7)
[2017-10-26] MEDS ORDERED: IV NORMAL SALINE 1000ML BAG 1,000 ML IV (09:12)
[2017-10-26] MEDS ORDERED: DIALYSIS PATIENT. MC (09:15)
[2017-10-26] MEDS: METOCLOPRAMIDE HCL 10 MG/2 ML VIAL. IV (09:44)
[2017-10-26] MEDS: IV DEXTROSE 5 %-0.45 % NACL 1,000 ML IV (12:38)
[2017-10-26] MEDS: cloNIDine TTS-2 1 PATCH PATCH TD (12:41)
[2017-10-26] MEDS: ONDANSETRON PF 4 MG/2 ML VIAL. IV (12:42)
[2017-10-26] MEDS: LABETALOL 20 MG/4 ML DISP.SYRIN. IVP (12:42)
[2017-10-26 21:09] LABS: MRSA BY PCR Positive (Negative)
[2017-10-27] MEDS: LABETALOL 20 MG/4 ML DISP.SYRIN. IVP (03:41)
[2017-10-27 05:52] LABS: ALBUMIN 2.9 g/dL (3.4-5.0); ANION GAP 9 (6-14); BLOOD UREA NITROGEN 34 mg/dL (8-26); CALCIUM 8.9 mg/dL (8.5-10.1); CARBON DIOXIDE 31 mmol/L (21-32); CHLORIDE 100 mmol/L (98-107); CREATININE 8.4 mg/dL (0.7-1.3); GFR 8.3; GLUCOSE 96 mg/dL (70-99); PHOSPHORUS 6.5 mg/dL (2.6-4.7); POTASSIUM 4.2 mmol/L (3.5-5.1); SODIUM 140 mmol/L (136-145)
[2017-10-27] MEDS: hydrALAZINE 20 MG/ML VIAL. IVP ×2 (06:05→10:38)
[2017-10-27] MEDS: IV DEXTROSE 5 %-0.45 % NACL 1,000 ML IV (08:30)
[2017-10-27] MEDS ORDERED: LORazepam 0.5 MG TABLET PO (11:30)
[2017-10-27] MEDS ORDERED: CALCIUM CARBONATE 500 MG TAB.CHEW PO (11:30)
[2017-10-27] MEDS ORDERED: ONDANSETRON ODT 4 MG TAB.RAPDIS. PO (11:30)
[2017-10-27] MEDS ORDERED: ACETAMINOPHEN 325 MG TABLET. PO (11:30)
[2017-10-27] MEDS ORDERED: HYDROcodone/APAP 5/325MG 1 TAB TABLET PO (11:30)
[2017-10-27] MEDS: METOCLOPRAMIDE 5 MG TABLET. PO ×2 (11:45→16:30)
[2017-10-27] MEDS: PANTOPRAZOLE 40 MG TABLET.DR. PO (11:45)
[2017-10-27] MEDS ORDERED: METHYL SALICYLATE/MENTHOL TOPICAL OINTMENT 29GM TUBE. TP ×2 (11:45)
[2017-10-27] MEDS: CITALOPRAM 20 MG TABLET. PO (12:00)
[2017-10-27] MEDS: CARVEDILOL 12.5 MG TABLET. PO ×2 (12:00→17:00)
[2017-10-27] MEDS: SEVELAMER CARBONATE 800 MG TABLET. PO ×4 (12:00→21:02)
[2017-10-27] MEDS: SENNOSIDES/DOCUSATE 8.6/50MG TABLET. PO ×2 (12:00→21:03)
[2017-10-27] MEDS: POLYETHYLENE GLYCOL 3350 17 GM PACKET. PO (12:00)
[2017-10-27] MEDS: LIDOCAINE/PRILOCAINE TOPICAL CREAM 5GM TUBE. TP (12:30)
[2017-10-27] MEDS ORDERED: IV NORMAL SALINE 1000ML BAG 1,000 ML IV ×2 (12:49)
[2017-10-27] MEDS ORDERED: diphenhydrAMINE 50 MG/ML VIAL IV ×2 (13:00)
[2017-10-27] MEDS ORDERED: DIALYSIS PATIENT. MC (13:00)
[2017-10-27] MEDS: BACLOFEN 10 MG TABLET. PO ×2 (14:00→21:03)
[2017-10-27] MEDS: cloNIDine HCL 0.2 MG TABLET PO ×2 (14:00→21:06)
[2017-10-27] MEDS ORDERED: NON FORMULARY ITEM (Sucroferric Oxyhydroxide (Velphoro) 500 MG) PO (21:00)
[2017-10-27] MEDS: LACTOBACILLUS RHAMNOSUS GG 1 CAPSULE. PO (21:03)
[2017-10-27] MEDS: ATORVASTATIN CALCIUM 10 MG TABLET. PO (21:03)
[2017-10-28] MEDS: IV DEXTROSE 5 %-0.45 % NACL 1,000 ML IV (04:30)
[2017-10-28 06:12] LABS: ANION GAP 4 (6-14); BLOOD UREA NITROGEN 18 mg/dL (8-26); CALCIUM 8.7 mg/dL (8.5-10.1); CARBON DIOXIDE 31 mmol/L (21-32); CHLORIDE 100 mmol/L (98-107); CREATININE 6.2 mg/dL (0.7-1.3); GFR 11.9; GLUCOSE 113 mg/dL (70-99); PHOSPHORUS 4.5 mg/dL (2.6-4.7); POTASSIUM 4.2 mmol/L (3.5-5.1); SODIUM 135 mmol/L (136-145)
[2017-10-28] MEDS: POLYETHYLENE GLYCOL 3350 17 GM PACKET. PO (08:25)
[2017-10-28] MEDS: LACTOBACILLUS RHAMNOSUS GG 1 CAPSULE. PO (08:32)
[2017-10-28] MEDS: BACLOFEN 10 MG TABLET. PO (08:33)
[2017-10-28] MEDS: CARVEDILOL 12.5 MG TABLET. PO (08:36)
[2017-10-28] MEDS: CITALOPRAM 20 MG TABLET. PO (08:38)
[2017-10-28] MEDS: METOCLOPRAMIDE 5 MG TABLET. PO ×2 (08:39→12:11)
[2017-10-28] MEDS: cloNIDine HCL 0.2 MG TABLET PO (08:40)
[2017-10-28] MEDS: SENNOSIDES/DOCUSATE 8.6/50MG TABLET. PO (08:40)
[2017-10-28] MEDS: PANTOPRAZOLE 40 MG TABLET.DR. PO (08:40)
[2017-10-28] MEDS: SEVELAMER CARBONATE 800 MG TABLET. PO ×2 (12:00→12:11)
== END 2017-10-28 14:36 | disposition home or self-care (01) | DRG 640 ==
LOC: 6 SOUTH 10-26 06:45 → ER 20:02 → 1 WEST ICU 22:00
PROVIDERS: Internal Medicine
PROC: 5A1D70Z Performance of Urinary Filtration, Intermittent, Less than 6 Hours Per Day (ICD-10-PCS; principal; 2017-10-25)
PROC: 5A1D70Z Performance of Urinary Filtration, Intermittent, Less than 6 Hours Per Day (ICD-10-PCS; 2017-10-26)
PROC: 5A1D70Z Performance of Urinary Filtration, Intermittent, Less than 6 Hours Per Day (ICD-10-PCS; 2017-10-27)
DX: E87.5 Hyperkalemia (principal); N18.6 End stage renal disease; G92 Toxic encephalopathy; E87.2 Acidosis; I12.0 Hypertensive chronic kidney disease with stage 5 chronic kidney disease or end stage renal disease; D62 Acute posthemorrhagic anemia; G81.94 Hemiplegia, unspecified affecting left nondominant side; F12.90 Cannabis use, unspecified, uncomplicated; D63.1 Anemia in chronic kidney disease; K21.9 Gastro-esophageal reflux disease without esophagitis; K31.84 Gastroparesis; R29.6 Repeated falls; Z82.49 Family history of ischemic heart disease and other diseases of the circulatory system; Z86.73 Personal history of transient ischemic attack (TIA), and cerebral infarction without residual deficits; Z91.15 Patient's noncompliance with renal dialysis; Z91.19 Patient's noncompliance with other medical treatment and regimen; Z99.2 Dependence on renal dialysis
CPT/HCPCS: 36415; 70450; 71010; 74000; 80048; 80053; 80069; 80076; 82140; 82553; 82962; 83690; 83735; 83880; 84100; 84132; 84484; 85025; 85027; 85610; 85730; 87040; 87641; 92610-GN; 93005; 96374; 96375; 99291; 99291-25; J0360; J0610; J0881; J1815; J2405; J2765; J3490; J7042; J8597

== ENCOUNTER 2018-03-09 11:30 | Inpatient (IN) | payer MEDICARE, OTHER ==
[2018-03-09 13:33] LABS: ADD MAN DIFF? NO
[2018-03-09 13:34] LABS: BASO # 0.1 x10^3/uL (0.0-0.2); BASO % 1 % (0-3); EOS # 0.4 x10^3/uL (0.0-0.7); EOS % 6 % (0-3); HEMATOCRIT 25.2 % (39.0-53.0); HEMOGLOBIN 8.4 g/dL (13.0-17.5); LYMPH # 1.2 x10^3/uL (1.0-4.8); LYMPH % 19 % (24-48); MEAN CORPUSCULAR HEMOGLOBIN 29 pg (25-35); MEAN CORPUSCULAR HGB CONC 33 g/dL (31-37); MEAN CORPUSCULAR VOLUME 87 fL (79-100); MONO # 0.8 x10^3/uL (0.0-1.1); MONO % 13 % (0-9); NEUT # 3.9 x10^3uL (1.8-7.7); NEUT % 62 % (31-73); PLATELET COUNT 158 x10^3/uL (140-400); RED BLOOD COUNT 2.88 x10^6/uL (4.30-5.70); RED CELL DISTRIBUTION WIDTH 18.7 % (11.5-14.5); WHITE BLOOD COUNT 6.4 x10^3/uL (4.0-11.0)
[2018-03-09 13:55] LABS: ALBUMIN 3.1 g/dL (3.4-5.0); ALBUMIN/GLOBULIN RATIO 0.5 (1.0-1.7); ALK PHOS 95 U/L (46-116); ALT (SGPT) 10 U/L (16-63); ANION GAP 13 (6-14); AST (SGOT) 20 U/L (15-37); BLOOD UREA NITROGEN 103 mg/dL (8-26); BUN/CREATININE RATIO 8 (6-20); CALCIUM 10.1 mg/dL (8.5-10.1); CARBON DIOXIDE 27 mmol/L (21-32); CHLORIDE 95 mmol/L (98-107); CREATININE 12.9 mg/dL (0.7-1.3); GFR 5.1; GLUCOSE 94 mg/dL (70-99); SODIUM 135 mmol/L (136-145); TOTAL BILIRUBIN 0.5 mg/dL (0.2-1.0); TOTAL PROTEIN 8.9 g/dL (6.4-8.2)
[2018-03-09 13:56] LABS: TROPONINI 0.042 ng/mL (0.000-0.055)
[2018-03-09 13:57] LABS: POTASSIUM 6.9 mmol/L (3.5-5.1)
[2018-03-09 14:05] LABS: NT-PRO BNP > 35000 pg/mL (0-124)
[2018-03-09] MEDS: CALCIUM GLUCONATE 1,000 MG/10 ML VIAL. IVP (14:14)
[2018-03-09] MEDS ORDERED: DEXTROSE 50% 25 GM / 50ML DISP.SYRIN. IV (14:15)
[2018-03-09] MEDS ORDERED: INSULIN REGULAR 100 UNIT/ML 3ML VIAL. IV (14:15)
[2018-03-09] MEDS ORDERED: SODIUM BICARB ADULT 8.4% 50 MEQ/50 ML DISP.SYRIN. IV (14:15)
[2018-03-09] MEDS: ALBUTEROL SULFATE 2.5 MG/3 ML NEBU. CONT NEB (14:27)
[2018-03-09] MEDS ORDERED: IV NORMAL SALINE 1000ML BAG 1,000 ML IV ×2 (14:44→15:00)
[2018-03-09] MEDS ORDERED: ALBUMIN HUMAN 25% 200 ML IV (14:45)
[2018-03-09] MEDS ORDERED: diphenhydrAMINE 50 MG/ML VIAL IV ×2 (14:45)
[2018-03-09] MEDS ORDERED: ACETAMINOPHEN 500 MG TABLET PO (14:45)
[2018-03-09] MEDS ORDERED: DIALYSIS PATIENT. MC (14:45)
[2018-03-09] MEDS: LABETALOL 20 MG/4 ML DISP.SYRIN. IVP (15:54)
[2018-03-09] MEDS: cloNIDine HCL 0.1 MG TABLET PO (15:59)
[2018-03-09] MEDS ORDERED: NITROGLYCERIN SUBLINGUAL 0.4 MG BOTTLE OF 25. SL (20:15)
[2018-03-09] MEDS ORDERED: ACETAMINOPHEN 325 MG TABLET. PO (20:30)
[2018-03-09] MEDS ORDERED: oxyCODONE IR 5 MG TABLET PO (20:45)
[2018-03-09] MEDS: LACTOBACILLUS RHAMNOSUS GG 1 CAPSULE. PO (21:00)
[2018-03-09] MEDS: DOCUSATE SODIUM 100 MG CAPSULE. PO (21:00)
[2018-03-09] MEDS: SENNOSIDES/DOCUSATE 8.6/50MG TABLET. PO (21:00)
[2018-03-09] MEDS: ACETAMINOPHEN 325 MG TABLET. PO (21:48)
[2018-03-09] MEDS: METOPROLOL TART IMMED RELEASE 25 MG TABLET. PO (21:48)
[2018-03-09] MEDS: diazePAM 5 MG TABLET PO (21:49)
[2018-03-09] MEDS: traZODone 50 MG TABLET. PO (21:49)
[2018-03-09] MEDS: FERROUS SULFATE 325 MG TABLET. PO (21:49)
[2018-03-09] MEDS: QUEtiapine 25 MG TABLET. PO (21:51)
[2018-03-09 22:01] LABS: POC GLUCOSE 97 mg/dL (70-99)
[2018-03-10] MEDS: cloNIDine HCL 0.2 MG TABLET PO (02:36)
[2018-03-10] MEDS: QUEtiapine 25 MG TABLET. PO ×7 (03:55→23:41)
[2018-03-10] MEDS: CHOLECALCIFEROL (VITAMIN D3) 5,000 UNIT CAPSULE PO (08:04)
[2018-03-10] MEDS: POLYETHYLENE GLYCOL 3350 17 GM PACKET. PO (08:04)
[2018-03-10] MEDS: VITAMIN B COMPLEX TABLET. PO (08:04)
[2018-03-10] MEDS: SENNOSIDES/DOCUSATE 8.6/50MG TABLET. PO ×2 (08:05→20:29)
[2018-03-10] MEDS: DOCUSATE SODIUM 100 MG CAPSULE. PO ×2 (08:05→20:29)
[2018-03-10] MEDS: LACTOBACILLUS RHAMNOSUS GG 1 CAPSULE. PO ×2 (08:05→20:29)
[2018-03-10] MEDS: CALCIUM CARBONATE 500 MG TAB.CHEW PO ×3 (08:05→16:12)
[2018-03-10] MEDS: METOPROLOL TART IMMED RELEASE 25 MG TABLET. PO ×2 (08:06→20:29)
[2018-03-10] MEDS: CLOPIDOGREL BISULFATE 75 MG TABLET PO (08:07)
[2018-03-10] MEDS: ASCORBIC ACID 500 MG TABLET PO (08:07)
[2018-03-10] MEDS: diazePAM 5 MG TABLET PO ×3 (08:08→20:29)
[2018-03-10] MEDS: FERROUS SULFATE 325 MG TABLET. PO ×2 (08:09→16:12)
[2018-03-10] MEDS: FAMOTIDINE 20 MG TABLET. PO (10:33)
[2018-03-10] MEDS ORDERED: MAGNESIUM SULFATE 2GM 50 ML IV (15:15)
[2018-03-10] MEDS: traZODone 50 MG TABLET. PO (20:30)
[2018-03-10] MEDS: DARBEPOETIN ALFA 60 MCG/0.3 ML DISP.SYRIN. SQ (20:35)
[2018-03-10 21:13] LABS: MRSA BY PCR Negative (Negative)
[2018-03-11] MEDS: QUEtiapine 25 MG TABLET. PO ×5 (04:26→20:00)
[2018-03-11 06:00] LABS: ADD MAN DIFF? NO
[2018-03-11 06:11] LABS: BASO # 0.1 x10^3/uL (0.0-0.2); BASO % 2 % (0-3); EOS # 0.4 x10^3/uL (0.0-0.7); EOS % 8 % (0-3); HEMATOCRIT 21.3 % (39.0-53.0); HEMOGLOBIN 7.1 g/dL (13.0-17.5); LYMPH # 1.8 x10^3/uL (1.0-4.8); LYMPH % 35 % (24-48); MEAN CORPUSCULAR HEMOGLOBIN 29 pg (25-35); MEAN CORPUSCULAR HGB CONC 33 g/dL (31-37); MEAN CORPUSCULAR VOLUME 87 fL (79-100); MONO # 0.7 x10^3/uL (0.0-1.1); MONO % 14 % (0-9); NEUT # 2.1 x10^3uL (1.8-7.7); NEUT % 41 % (31-73); PLATELET COUNT 191 x10^3/uL (140-400); RED BLOOD COUNT 2.45 x10^6/uL (4.30-5.70); RED CELL DISTRIBUTION WIDTH 18.9 % (11.5-14.5); WHITE BLOOD COUNT 5.1 x10^3/uL (4.0-11.0)
[2018-03-11 06:13] LABS: RETIC COUNT 0.6 % (0.5-2.5)
[2018-03-11] MEDS: CALCIUM CARBONATE 500 MG TAB.CHEW PO ×3 (06:16→16:32)
[2018-03-11 06:19] LABS: MAGNESIUM 2.8 mg/dL (1.8-2.4)
[2018-03-11 06:21] LABS: % SAT IRON 35 % (15-34); IRON,SERUM 54 ug/dL (65-175)
[2018-03-11 06:23] LABS: ALBUMIN 2.6 g/dL (3.4-5.0); ANION GAP 9 (6-14); BLOOD UREA NITROGEN 69 mg/dL (8-26); CALCIUM 9.2 mg/dL (8.5-10.1); CARBON DIOXIDE 29 mmol/L (21-32); CHLORIDE 99 mmol/L (98-107); GFR 6.8; GLUCOSE 95 mg/dL (70-99); PHOSPHORUS 6.6 mg/dL (2.6-4.7); POTASSIUM 5.2 mmol/L (3.5-5.1); SODIUM 137 mmol/L (136-145)
[2018-03-11 06:36] LABS: FERRITIN 852 ng/mL (26-388)
[2018-03-11] MEDS: CLOPIDOGREL BISULFATE 75 MG TABLET PO (08:54)
[2018-03-11] MEDS: FAMOTIDINE 20 MG TABLET. PO (08:54)
[2018-03-11] MEDS: VITAMIN B COMPLEX TABLET. PO (08:54)
[2018-03-11] MEDS: CHOLECALCIFEROL (VITAMIN D3) 5,000 UNIT CAPSULE PO (08:54)
[2018-03-11] MEDS: SENNOSIDES/DOCUSATE 8.6/50MG TABLET. PO ×2 (08:54→20:00)
[2018-03-11] MEDS: LACTOBACILLUS RHAMNOSUS GG 1 CAPSULE. PO ×2 (08:54→19:59)
[2018-03-11] MEDS: METOPROLOL TART IMMED RELEASE 25 MG TABLET. PO ×2 (08:55→20:00)
[2018-03-11] MEDS: POLYETHYLENE GLYCOL 3350 17 GM PACKET. PO (08:55)
[2018-03-11] MEDS: FERROUS SULFATE 325 MG TABLET. PO ×2 (08:55→16:32)
[2018-03-11] MEDS: DOCUSATE SODIUM 100 MG CAPSULE. PO ×2 (08:55→20:00)
[2018-03-11] MEDS: ASCORBIC ACID 500 MG TABLET PO (08:55)
[2018-03-11] MEDS: diazePAM 5 MG TABLET PO ×3 (08:55→19:59)
[2018-03-11] MEDS: SODIUM POLYSTYRENE SULFONATE 15 GM/60 ML ORAL.SUSP. PO (14:28)
[2018-03-11] MEDS: SEVELAMER CARBONATE 800 MG TABLET. PO (16:35)
[2018-03-11] MEDS: traZODone 50 MG TABLET. PO (19:59)
[2018-03-12] MEDS: QUEtiapine 25 MG TABLET. PO ×6 (00:01→20:42)
[2018-03-12] MEDS: cloNIDine HCL 0.2 MG TABLET PO ×2 (00:01→22:18)
[2018-03-12 07:02] LABS: ALBUMIN 2.8 g/dL (3.4-5.0); ANION GAP 11 (6-14); BLOOD UREA NITROGEN 81 mg/dL (8-26); CALCIUM 9.5 mg/dL (8.5-10.1); CARBON DIOXIDE 29 mmol/L (21-32); CHLORIDE 98 mmol/L (98-107); CREATININE 11.8 mg/dL (0.7-1.3); GFR 5.6; GLUCOSE 93 mg/dL (70-99); PHOSPHORUS 6.1 mg/dL (2.6-4.7); POTASSIUM 4.7 mmol/L (3.5-5.1); SODIUM 138 mmol/L (136-145)
[2018-03-12] MEDS ORDERED: DIALYSIS PATIENT. MC ×2 (09:15)
[2018-03-12 11:12] LABS: HEMATOCRIT 23.2 % (39.0-53.0)
[2018-03-12 11:12] LABS: HEMOGLOBIN 7.7 g/dL (13.0-17.5)
[2018-03-12] MEDS: CALCIUM CARBONATE 500 MG TAB.CHEW PO ×3 (11:30→16:20)
[2018-03-12] MEDS: SEVELAMER CARBONATE 800 MG TABLET. PO ×3 (12:00→16:19)
[2018-03-12] MEDS: FAMOTIDINE 20 MG TABLET. PO (13:04)
[2018-03-12] MEDS: POLYETHYLENE GLYCOL 3350 17 GM PACKET. PO (13:04)
[2018-03-12] MEDS: DOCUSATE SODIUM 100 MG CAPSULE. PO ×2 (13:04→20:42)
[2018-03-12] MEDS: CHOLECALCIFEROL (VITAMIN D3) 5,000 UNIT CAPSULE PO (13:04)
[2018-03-12] MEDS: diazePAM 5 MG TABLET PO ×3 (13:05→20:41)
[2018-03-12] MEDS: LACTOBACILLUS RHAMNOSUS GG 1 CAPSULE. PO ×2 (13:05→20:42)
[2018-03-12] MEDS: FERROUS SULFATE 325 MG TABLET. PO ×2 (13:05→16:19)
[2018-03-12] MEDS: SENNOSIDES/DOCUSATE 8.6/50MG TABLET. PO ×2 (13:05→20:41)
[2018-03-12] MEDS: METOPROLOL TART IMMED RELEASE 25 MG TABLET. PO ×2 (13:05→20:42)
[2018-03-12] MEDS: CLOPIDOGREL BISULFATE 75 MG TABLET PO (13:05)
[2018-03-12] MEDS: VITAMIN B COMPLEX TABLET. PO (13:06)
[2018-03-12] MEDS: ASCORBIC ACID 500 MG TABLET PO (13:06)
[2018-03-12] MEDS: traZODone 50 MG TABLET. PO (20:42)
[2018-03-12] MEDS ORDERED: hydrALAZINE 20 MG/ML VIAL. IVP (22:15)
[2018-03-13] MEDS: QUEtiapine 25 MG TABLET. PO ×5 (00:33→16:36)
[2018-03-13] MEDS: hydrALAZINE 10 MG TABLET PO (03:31)
[2018-03-13] MEDS: CALCIUM CARBONATE 500 MG TAB.CHEW PO ×3 (06:26→16:36)
[2018-03-13 08:32] LABS: ALBUMIN 2.8 g/dL (3.4-5.0); ANION GAP 6 (6-14); BLOOD UREA NITROGEN 48 mg/dL (8-26); CALCIUM 9.6 mg/dL (8.5-10.1); CARBON DIOXIDE 34 mmol/L (21-32); CHLORIDE 97 mmol/L (98-107); CREATININE 7.8 mg/dL (0.7-1.3); GFR 9.1; GLUCOSE 98 mg/dL (70-99); MAGNESIUM 2.4 mg/dL (1.8-2.4); PHOSPHORUS 4.3 mg/dL (2.6-4.7); POTASSIUM 4.6 mmol/L (3.5-5.1); SODIUM 137 mmol/L (136-145)
[2018-03-13] MEDS: CHOLECALCIFEROL (VITAMIN D3) 5,000 UNIT CAPSULE PO (08:39)
[2018-03-13] MEDS: VITAMIN B COMPLEX TABLET. PO (08:39)
[2018-03-13] MEDS: POLYETHYLENE GLYCOL 3350 17 GM PACKET. PO (08:39)
[2018-03-13] MEDS: diazePAM 5 MG TABLET PO ×2 (08:41→16:36)
[2018-03-13] MEDS: ASCORBIC ACID 500 MG TABLET PO (08:41)
[2018-03-13] MEDS: CLOPIDOGREL BISULFATE 75 MG TABLET PO (08:42)
[2018-03-13] MEDS: SENNOSIDES/DOCUSATE 8.6/50MG TABLET. PO (08:42)
[2018-03-13] MEDS: SEVELAMER CARBONATE 800 MG TABLET. PO ×3 (08:42→16:36)
[2018-03-13] MEDS: LACTOBACILLUS RHAMNOSUS GG 1 CAPSULE. PO (08:42)
[2018-03-13] MEDS: FAMOTIDINE 20 MG TABLET. PO (08:43)
[2018-03-13] MEDS: METOPROLOL TART IMMED RELEASE 25 MG TABLET. PO (08:43)
[2018-03-13] MEDS: FERROUS SULFATE 325 MG TABLET. PO ×2 (08:44→16:36)
[2018-03-13] MEDS: DOCUSATE SODIUM 100 MG CAPSULE. PO (08:45)
[2018-03-13] MEDS ORDERED: IV NORMAL SALINE 1000ML BAG 1,000 ML IV ×2 (12:01)
[2018-03-13] MEDS ORDERED: DIALYSIS PATIENT. MC ×2 (12:15)
== END 2018-03-13 18:00 | DRG 682 ==
LOC: ER 11:30 → 5 NORTH 15:10
PROC: 30233N1 Transfusion of Nonautologous Red Blood Cells into Peripheral Vein, Percutaneous Approach (ICD-10-PCS; principal; 2018-03-09)
DX: I13.11 Hypertensive heart and chronic kidney disease without heart failure, with stage 5 chronic kidney disease, or end stage renal disease (principal); G93.40 Encephalopathy, unspecified; I60.7 Nontraumatic subarachnoid hemorrhage from unspecified intracranial artery; E87.5 Hyperkalemia; E83.39 Other disorders of phosphorus metabolism; K31.84 Gastroparesis; N18.6 End stage renal disease; G81.94 Hemiplegia, unspecified affecting left nondominant side; F41.9 Anxiety disorder, unspecified; D63.1 Anemia in chronic kidney disease; F12.90 Cannabis use, unspecified, uncomplicated; E78.5 Hyperlipidemia, unspecified; Z91.19 Patient's noncompliance with other medical treatment and regimen; Z86.73 Personal history of transient ischemic attack (TIA), and cerebral infarction without residual deficits; Z99.2 Dependence on renal dialysis
CPT/HCPCS: 36415; 71045; 80053; 80069; 82728; 82962; 83540; 83550; 83735; 83880; 84484; 85014; 85018; 85025; 85045; 86850; 86900; 86901; 86920; 87641; 93005; 94640; 94644; 96374; 99285; 99285-25; J0610; J0881; J3490; J7613

== ENCOUNTER 2018-04-05 17:46 | Emergency (ER) | payer OTHER, MEDICARE ==
[2018-04-05 19:03] LABS: ADD MAN DIFF? NO
[2018-04-05 19:12] LABS: ANION GAP 9 (6-14); BLOOD UREA NITROGEN 19 mg/dL (8-26); BUN/CREATININE RATIO 4 (6-20); CALCIUM 9.2 mg/dL (8.5-10.1); CARBON DIOXIDE 34 mmol/L (21-32); CHLORIDE 96 mmol/L (98-107); CREATININE 4.5 mg/dL (0.7-1.3); GFR 17.2; GLUCOSE 93 mg/dL (70-99); POTASSIUM 3.7 mmol/L (3.5-5.1); SODIUM 139 mmol/L (136-145)
[2018-04-05 19:15] LABS: BASO # 0.1 x10^3/uL (0.0-0.2); BASO % 1 % (0-3); EOS # 0.8 x10^3/uL (0.0-0.7); EOS % 15 % (0-3); LYMPH % 18 % (24-48); MEAN CORPUSCULAR HEMOGLOBIN 29 pg (25-35); MEAN CORPUSCULAR HGB CONC 34 g/dL (31-37); MEAN CORPUSCULAR VOLUME 86 fL (79-100); MONO # 0.6 x10^3/uL (0.0-1.1); MONO % 10 % (0-9); NEUT # 3.2 x10^3uL (1.8-7.7); NEUT % 56 % (31-73); PLATELET COUNT 131 x10^3/uL (140-400); RED BLOOD COUNT 2.31 x10^6/uL (4.30-5.70); WHITE BLOOD COUNT 5.7 x10^3/uL (4.0-11.0)
[2018-04-05 19:18] LABS: ALBUMIN 3.5 g/dL (3.4-5.0); ALBUMIN/GLOBULIN RATIO 0.6 (1.0-1.7); ALK PHOS 67 U/L (46-116); ALT (SGPT) 12 U/L (16-63); AST (SGOT) 11 U/L (15-37); HEMATOCRIT 19.9 % (39.0-53.0); HEMOGLOBIN 6.8 g/dL (13.0-17.5); TOTAL BILIRUBIN 0.5 mg/dL (0.2-1.0); TOTAL PROTEIN 9.3 g/dL (6.4-8.2)
== END 2018-04-05 19:44 | disposition left against medical advice (07) ==
LOC: ER 19:44
DX: D64.9 Anemia, unspecified (principal); I12.0 Hypertensive chronic kidney disease with stage 5 chronic kidney disease or end stage renal disease; N18.6 End stage renal disease; Z99.2 Dependence on renal dialysis; Z86.73 Personal history of transient ischemic attack (TIA), and cerebral infarction without residual deficits
CPT/HCPCS: 36415; 80053; 85025; 99284

== ENCOUNTER → 2018-04-06 | Outpatient (CLI) | payer OTHER, MEDICARE ==
[2018-04-06 12:18] LABS: HEMOGLOBIN 7.1 g/dL (13.0-17.5); MEAN CORPUSCULAR HGB CONC 34 g/dL (31-37)
[2018-04-06 12:20] LABS: HEMATOCRIT 20.8 % (39.0-53.0)
[2018-04-06 13:12] LABS: IMMEDIATE SPIN CROSSMATCH 1 2
== END ==
LOC: OPS 11:46
DX: D64.9 Anemia, unspecified (principal)
CPT/HCPCS: 36415; 36430; 85014; 85018; 86850; 86900; 86901; 86920; P9016

== ENCOUNTER 2018-05-01 16:39 | Inpatient (IN) | payer MEDICARE, OTHER ==
[2018-05-01 17:02] LABS: ADD MAN DIFF? NO
[2018-05-01 17:09] LABS: BASO # 0.1 x10^3/uL (0.0-0.2); BASO % 1 % (0-3); EOS # 0.3 x10^3/uL (0.0-0.7); EOS % 6 % (0-3); LYMPH # 1.5 x10^3/uL (1.0-4.8); LYMPH % 27 % (24-48); MEAN CORPUSCULAR HEMOGLOBIN 30 pg (25-35); MEAN CORPUSCULAR HGB CONC 34 g/dL (31-37); MEAN CORPUSCULAR VOLUME 87 fL (79-100); MONO # 0.4 x10^3/uL (0.0-1.1); MONO % 7 % (0-9); NEUT # 3.3 x10^3uL (1.8-7.7); NEUT % 59 % (31-73); PLATELET COUNT 111 x10^3/uL (140-400); RED BLOOD COUNT 2.35 x10^6/uL (4.30-5.70); RED CELL DISTRIBUTION WIDTH 15.2 % (11.5-14.5); WHITE BLOOD COUNT 5.5 x10^3/uL (4.0-11.0)
[2018-05-01 17:10] LABS: AGAP ISTAT 21 mmol/L (6-14); BUN ISTAT 121 mg/dL (8-26); CHLORIDE ISTAT 102 mmol/L (98-110); CREATININE ISTAT 17.1 mg/dL (0.5-1.4); GLUCOSE ISTAT 103 mg/dL (70-99); HEMATOCRIT ISTAT 18 % (37-52); HEMOGLOBIN ISTAT 6.1 g/dL (14-18); ION CA ISTAT 0.95 mmol/L (1.13-1.32); POTASSIUM ISTAT 6.2 mmol/L (3.5-5.0); SODIUM ISTAT 133 mmol/L (135-145); TOT CO2 ISTAT 17 mmol/L (23-32)
[2018-05-01 17:11] LABS: HEMATOCRIT 20.5 % (39.0-53.0)
[2018-05-01 17:30] LABS: ALBUMIN 3.6 g/dL (3.4-5.0); ALBUMIN/GLOBULIN RATIO 0.7 (1.0-1.7); ALK PHOS 64 U/L (46-116); ALT (SGPT) 14 U/L (16-63); ANION GAP 18 (6-14); AST (SGOT) 13 U/L (15-37); BLOOD UREA NITROGEN 135 mg/dL (8-26); BUN/CREATININE RATIO 8 (6-20); CALCIUM 9.4 mg/dL (8.5-10.1); CARBON DIOXIDE 20 mmol/L (21-32); CHLORIDE 96 mmol/L (98-107); CREATININE 17.3 mg/dL (0.7-1.3); GFR 3.6; GLUCOSE 109 mg/dL (70-99); SODIUM 134 mmol/L (136-145); TOTAL BILIRUBIN 0.4 mg/dL (0.2-1.0); TOTAL PROTEIN 8.7 g/dL (6.4-8.2)
[2018-05-01 17:33] LABS: POTASSIUM 6.4 mmol/L (3.5-5.1)
[2018-05-01 17:34] LABS: TROPONINI 0.065 ng/mL (0.000-0.055)
[2018-05-01 17:42] LABS: CKMB MASS 2.9 ng/mL (0.0-3.6); CREATINE KINASE 143 U/L (39-308)
[2018-05-01] MEDS: SODIUM BICARB ADULT 8.4% 50 MEQ/50 ML DISP.SYRIN. IV (18:02)
[2018-05-01] MEDS: CALCIUM GLUCONATE 1,000 MG/10 ML VIAL. IVP (18:03)
[2018-05-01] MEDS ORDERED: DIALYSIS PATIENT. MC ×2 (19:15)
[2018-05-01] MEDS ORDERED: IV NORMAL SALINE 1000ML BAG 1,000 ML IV ×2 (19:15)
[2018-05-01] MEDS ORDERED: LIDOCAINE 1% PF 2 ML VIAL. (19:55)
[2018-05-01] MEDS: LIDOCAINE 1% PF 2 ML VIAL. INJ (20:00)
[2018-05-01 21:06] LABS: INR 1.2 (0.8-1.1); PROTHROMBIN TIME PATIENT 14.2 SEC (11.7-14.0)
[2018-05-02] MEDS ORDERED: DOCUSATE SODIUM 100 MG CAPSULE. PO (09:00)
[2018-05-02] MEDS ORDERED: ONDANSETRON ODT 4 MG TAB.RAPDIS. PO (09:00)
[2018-05-02] MEDS ORDERED: MINERAL OIL/PETROLATUM TOPICAL CREAM 113GM JAR. TP (09:00)
[2018-05-02] MEDS ORDERED: CALCIUM CARBONATE 500 MG TAB.CHEW PO (09:00)
[2018-05-02] MEDS ORDERED: NITROGLYCERIN SUBLINGUAL 0.4 MG BOTTLE OF 25. SL (09:00)
[2018-05-02] MEDS ORDERED: diazePAM 5 MG TABLET PO (09:00)
[2018-05-02] MEDS ORDERED: QUEtiapine 25 MG TABLET. PO (09:00)
[2018-05-02] MEDS ORDERED: LIDOCAINE/PRILOCAINE TOPICAL CREAM 5GM TUBE. TP (09:00)
[2018-05-02] MEDS ORDERED: ACETAMINOPHEN 325 MG TABLET. PO (09:00)
[2018-05-02] MEDS ORDERED: oxyCODONE IR 5 MG TABLET PO (09:00)
[2018-05-02] MEDS ORDERED: BISACODYL 10 MG SUPP.RECT. RC (09:00)
[2018-05-02 09:35] LABS: HEMOGLOBIN 6.6 g/dL (13.0-17.5)
[2018-05-02 09:36] LABS: HEMATOCRIT 19.2 % (39.0-53.0)
[2018-05-02] MEDS: POLYETHYLENE GLYCOL 3350 17 GM PACKET. PO (09:47)
[2018-05-02] MEDS: CHOLECALCIFEROL (VITAMIN D3) 5,000 UNIT CAPSULE PO (09:48)
[2018-05-02] MEDS: FERROUS SULFATE 325 MG TABLET. PO ×2 (09:48→17:47)
[2018-05-02] MEDS: CLOPIDOGREL BISULFATE 75 MG TABLET PO (09:48)
[2018-05-02] MEDS: CALCIUM CARBONATE 500 MG TABLET PO ×3 (09:48→17:47)
[2018-05-02] MEDS: LACTOBACILLUS RHAMNOSUS GG 1 CAPSULE. PO ×2 (09:48→20:17)
[2018-05-02] MEDS: SENNOSIDES/DOCUSATE 8.6/50MG TABLET. PO ×2 (09:48→20:17)
[2018-05-02] MEDS: FAMOTIDINE 20 MG TABLET. PO (09:48)
[2018-05-02] MEDS: METOPROLOL TART IMMED RELEASE 25 MG TABLET. PO ×2 (09:49→20:17)
[2018-05-02] MEDS: LIDOCAINE (700MG/PATCH) PATCH. TD (09:57)
[2018-05-02 14:50] LABS: IMMEDIATE SPIN CROSSMATCH 1 1
[2018-05-02] MEDS: cloNIDine HCL 0.2 MG TABLET PO (15:20)
[2018-05-02] MEDS: VITAMIN B COMPLEX TABLET. PO (17:47)
[2018-05-02] MEDS: traZODone 50 MG TABLET. PO (20:18)
[2018-05-02] MEDS: PATCH REMOVAL. MC (20:28)
[2018-05-02 21:07] LABS: MRSA BY PCR Negative (Negative)
[2018-05-03] MEDS: CALCIUM CARBONATE 500 MG TABLET PO ×3 (07:30→16:30)
[2018-05-03] MEDS: FERROUS SULFATE 325 MG TABLET. PO ×2 (08:00→16:51)
[2018-05-03 08:17] LABS: HEMATOCRIT 24.2 % (39.0-53.0); HEMOGLOBIN 8.4 g/dL (13.0-17.5); MEAN CORPUSCULAR HEMOGLOBIN 30 pg (25-35); MEAN CORPUSCULAR HGB CONC 35 g/dL (31-37); MEAN CORPUSCULAR VOLUME 86 fL (79-100); PLATELET COUNT 121 x10^3/uL (140-400); RED BLOOD COUNT 2.81 x10^6/uL (4.30-5.70); RED CELL DISTRIBUTION WIDTH 14.5 % (11.5-14.5); WHITE BLOOD COUNT 5.5 x10^3/uL (4.0-11.0)
[2018-05-03 08:43] LABS: % SAT IRON 48 % (15-34); IRON,SERUM 89 ug/dL (65-175)
[2018-05-03 09:01] LABS: ANION GAP 11 (6-14); BLOOD UREA NITROGEN 67 mg/dL (8-26); CALCIUM 9.1 mg/dL (8.5-10.1); CARBON DIOXIDE 26 mmol/L (21-32); CHLORIDE 97 mmol/L (98-107); CREATININE 12.5 mg/dL (0.7-1.3); GFR 5.3; GLUCOSE 102 mg/dL (70-99); POTASSIUM 4.4 mmol/L (3.5-5.1); SODIUM 134 mmol/L (136-145)
[2018-05-03] MEDS ORDERED: LIDOCAINE 1% PF 2 ML VIAL. (09:49)
[2018-05-03 09:52] LABS: FERRITIN 1272 ng/mL (26-388)
[2018-05-03 10:47] LABS: CHOLESTEROL 201 mg/dL (0-200); HDLC 56 mg/dL (40-60); LDLC 127 mg/dL (0-100); NON-HDL CHOLESTEROL 145 mg/dL (0-129); TRIGLYCERIDES 89 mg/dL (0-150); VLDLC 18 mg/dL (0-40)
[2018-05-03 10:48] LABS: CHOLESTEROL/HDL RATIO 3.6
[2018-05-03] MEDS ORDERED: IV NORMAL SALINE 1000ML BAG 1,000 ML IV (12:14)
[2018-05-03] MEDS ORDERED: DIALYSIS PATIENT. MC ×2 (12:15)
[2018-05-03] MEDS: POLYETHYLENE GLYCOL 3350 17 GM PACKET. PO (15:05)
[2018-05-03] MEDS: LACTOBACILLUS RHAMNOSUS GG 1 CAPSULE. PO (15:05)
[2018-05-03] MEDS: CHOLECALCIFEROL (VITAMIN D3) 5,000 UNIT CAPSULE PO (15:05)
[2018-05-03] MEDS: SENNOSIDES/DOCUSATE 8.6/50MG TABLET. PO (15:06)
[2018-05-03] MEDS: CLOPIDOGREL BISULFATE 75 MG TABLET PO (15:06)
[2018-05-03] MEDS: METOPROLOL TART IMMED RELEASE 25 MG TABLET. PO (15:06)
[2018-05-03] MEDS: LIDOCAINE (700MG/PATCH) PATCH. TD (15:07)
[2018-05-03] MEDS: FAMOTIDINE 20 MG TABLET. PO (15:09)
[2018-05-03] MEDS: VITAMIN B COMPLEX TABLET. PO (16:51)
== END 2018-05-03 19:03 | disposition home or self-care (01) | DRG 640 ==
LOC: ER 16:39 → 5 SOUTH 17:30
PROC: 5A1D70Z Performance of Urinary Filtration, Intermittent, Less than 6 Hours Per Day (ICD-10-PCS; 2018-05-01)
PROC: 30233N1 Transfusion of Nonautologous Red Blood Cells into Peripheral Vein, Percutaneous Approach (ICD-10-PCS; principal; 2018-05-02)
PROC: 5A1D70Z Performance of Urinary Filtration, Intermittent, Less than 6 Hours Per Day (ICD-10-PCS; 2018-05-02)
DX: E87.5 Hyperkalemia (principal); N18.6 End stage renal disease; I13.2 Hypertensive heart and chronic kidney disease with heart failure and with stage 5 chronic kidney disease, or end stage renal disease; G81.94 Hemiplegia, unspecified affecting left nondominant side; I42.9 Cardiomyopathy, unspecified; D63.1 Anemia in chronic kidney disease; I50.9 Heart failure, unspecified; Z99.2 Dependence on renal dialysis; K31.84 Gastroparesis; Z91.15 Patient's noncompliance with renal dialysis; Z86.73 Personal history of transient ischemic attack (TIA), and cerebral infarction without residual deficits; Z82.49 Family history of ischemic heart disease and other diseases of the circulatory system; E21.3 Hyperparathyroidism, unspecified; M48.02 Spinal stenosis, cervical region; M19.90 Unspecified osteoarthritis, unspecified site; Z86.74 Personal history of sudden cardiac arrest; I48.91 Unspecified atrial fibrillation; K21.9 Gastro-esophageal reflux disease without esophagitis; F41.9 Anxiety disorder, unspecified; F12.90 Cannabis use, unspecified, uncomplicated; R74.8 Abnormal levels of other serum enzymes
CPT/HCPCS: 36415; 71045; 80047; 80048; 80053; 80061; 82553; 82728; 83540; 83550; 83735; 84100; 84484; 85014; 85018; 85025; 85027; 85610; 86850; 86900; 86901; 86920; 87641; 93005; 93308; 96374; 96375; 99291; 99291-25; J0610; P9016

== ENCOUNTER 2018-05-18 15:54 | Emergency (ER) | payer MEDICARE, OTHER ==
[2018-05-18 16:34] LABS: ADD MAN DIFF? NO
[2018-05-18 16:37] LABS: BASO # 0.1 x10^3/uL (0.0-0.2); BASO % 1 % (0-3); EOS # 0.3 x10^3/uL (0.0-0.7); EOS % 5 % (0-3); HEMATOCRIT 21.9 % (39.0-53.0); HEMOGLOBIN 7.2 g/dL (13.0-17.5); LYMPH # 1.9 x10^3/uL (1.0-4.8); LYMPH % 31 % (24-48); MEAN CORPUSCULAR HEMOGLOBIN 29 pg (25-35); MEAN CORPUSCULAR HGB CONC 33 g/dL (31-37); MEAN CORPUSCULAR VOLUME 89 fL (79-100); MONO # 0.8 x10^3/uL (0.0-1.1); MONO % 13 % (0-9); NEUT % 50 % (31-73); PLATELET COUNT 162 x10^3/uL (140-400); RED BLOOD COUNT 2.46 x10^6/uL (4.30-5.70); RED CELL DISTRIBUTION WIDTH 14.9 % (11.5-14.5)
[2018-05-18 16:45] LABS: ANION GAP 15 (6-14); BLOOD UREA NITROGEN 51 mg/dL (8-26); BUN/CREATININE RATIO 5 (6-20); CALCIUM 9.1 mg/dL (8.5-10.1); CARBON DIOXIDE 28 mmol/L (21-32); CHLORIDE 94 mmol/L (98-107); CREATININE 10.2 mg/dL (0.7-1.3); GFR 6.6; GLUCOSE 103 mg/dL (70-99); POTASSIUM 4.2 mmol/L (3.5-5.1); SODIUM 137 mmol/L (136-145)
[2018-05-18 16:52] LABS: ALBUMIN 3.7 g/dL (3.4-5.0); ALBUMIN/GLOBULIN RATIO 0.8 (1.0-1.7); ALK PHOS 59 U/L (46-116); ALT (SGPT) 13 U/L (16-63); AST (SGOT) 9 U/L (15-37); TOTAL BILIRUBIN 0.3 mg/dL (0.2-1.0); TOTAL PROTEIN 8.6 g/dL (6.4-8.2)
[2018-05-18] MEDS: cloNIDine HCL 0.1 MG TABLET PO (17:36)
== END 2018-05-18 19:59 | disposition home or self-care (01) ==
LOC: ER 15:54
DX: I12.0 Hypertensive chronic kidney disease with stage 5 chronic kidney disease or end stage renal disease (principal); N18.6 End stage renal disease; D63.1 Anemia in chronic kidney disease; Z99.2 Dependence on renal dialysis
CPT/HCPCS: 36415; 80053; 85025; 99284

== ENCOUNTER 2018-07-28 23:19 | Emergency (ER) | payer OTHER, MEDICARE ==
[~2018-07-28] VITALS: Ht 175.3 cm; Wt 65.8 kg
[~2018-07-28 23:19] MED LIST changes: +AMLO10TA6 PO; +AMMO1SOL2 MC; +ATOR10TA60 PO; +BISA10SU2 RC; +BUPR150T6 PO; +CALC500O PO; +CEFA1SYR IV; +CHOL500016 PO; +CLOP75TA PO; +DARB10SY IJ; +DIAZ2TAB3 PO; +DIAZ5TAB4 PO; +DICL100G28 TP; +DILT90TA PO; +DOCU-109 PO; +DOCU100C28 PO; +FAMO20TA5 PO; +FERR325T14 PO; +HYDR2DIS IJ; +IPRA3AMP29 NEB; +LACT1CAP53 PO; +LACT1CAP6 PO; +METH1ADH7 TP; +METO10TA81 PO; +METO25TA4 PO; +METO5TAB PO; +MINE473L5 TP; +NIFE60TA PO; +NITR0.4T22 SL; +ONDA4TAB10 PO; +OXYC5TAB95 PO; +QUET25TA5 PO; +SENN-82 PO; +SEVE800T9 PO; +TRAZ-85 PO; +VIT1TABL PO; +VITA1TAB19 PO
[2018-07-29] MEDS ORDERED: cloNIDine HCL 0.1 MG TABLET PO ONE (02:00)
--- NOTE | 2018-07-29 02:42 | RAD ---
INDICATION: rt.forehead swelling after fall COMPARISON: February 23, 2018 TECHNIQUE: Axial CT images obtained through the head without intravenous contrast. One or more of the following individualized dose reduction techniques were utilized for this examination: 1. Automated exposure control; 2. Adjustment of the mA and/or kV according to patient size; 3. Use of iterative reconstruction technique. FINDINGS: No intracranial hemorrhage. No midline shift. Basal cisterns patents. Ventricles and sulci are globally prominent. No acute osseous abnormality. Orbits and paranasal sinuses unremarkable. Scattered foci of low attenuation within the white matter. Encephalomalacia right frontal region again seen. Could be from prior insult. IMPRESSION: 1. No acute intracranial hemorrhage. 2. Scattered regions of low attenuation within the white matter. Non-specific in nature but frequently secondary to chronic small vessel ischemic disease. 3. Prominence of ventricles and sulci which is frequently secondary to age related volume loss. 4. Right frontal scalp cephalohematoma. Electronically signed by: Donovan Yung MD (07/29/2018 2:38 AM) [facility]
[2018-07-29 04:00] VITALS: BP 189/96
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
== END 2018-07-29 04:02 | disposition home or self-care (01) ==
LOC: ER 23:19
DX: S06.2X0A Diffuse traumatic brain injury without loss of consciousness, initial encounter (principal); F41.9 Anxiety disorder, unspecified; I12.9 Hypertensive chronic kidney disease with stage 1 through stage 4 chronic kidney disease, or unspecified chronic kidney disease; N18.9 Chronic kidney disease, unspecified; Z86.73 Personal history of transient ischemic attack (TIA), and cerebral infarction without residual deficits; Z99.2 Dependence on renal dialysis; W05.0XXA Fall from non-moving wheelchair, initial encounter; Y93.89 Activity, other specified; Y92.89 Other specified places as the place of occurrence of the external cause; Y99.8 Other external cause status
CPT/HCPCS: 70450; 99284-25

== ENCOUNTER 2018-07-29 19:27 | Emergency (ER) | payer OTHER, MEDICARE ==
[~2018-07-29] VITALS: Ht 176.5 cm; Wt 65.8 kg
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
[2018-07-29] MEDS ORDERED: cloNIDine HCL 0.1 MG TABLET PO ONE (20:30)
[2018-07-29 21:30] VITALS: BP 192/102
== END 2018-07-29 21:54 | disposition home or self-care (01) ==
LOC: ER 19:27
DX: Z76.89 Persons encountering health services in other specified circumstances (principal); Z91.81 History of falling; Z86.73 Personal history of transient ischemic attack (TIA), and cerebral infarction without residual deficits; N18.9 Chronic kidney disease, unspecified; I12.9 Hypertensive chronic kidney disease with stage 1 through stage 4 chronic kidney disease, or unspecified chronic kidney disease; Z99.2 Dependence on renal dialysis; W01.0XXA Fall on same level from slipping, tripping and stumbling without subsequent striking against object, initial encounter; Y93.89 Activity, other specified; Y92.128 Other place in nursing home as the place of occurrence of the external cause; Y99.8 Other external cause status
CPT/HCPCS: 99284

== ENCOUNTER 2019-01-20 12:22 | Inpatient (IN) | payer MEDICARE, OTHER ==
[~2019-01-20] VITALS: Ht 175.3 cm; Wt 75.3 kg
[~2019-01-20 12:22] MED LIST changes: -AMLO10TA6 PO; +AMLO10TA8 PO; -CALC500T PO; +CALC500T31 PO; +HYDR-3164 PO; -HYDR-971 PO; +OXYC5TAB4 PO; -OXYC5TAB95 PO; +TRAZ-118 PO; -TRAZ-85 PO
[2019-01-20] MEDS ORDERED: fentaNYL PF VIAL 100 MCG/2 ML VIAL IV ONE (13:15)
[2019-01-20 13:21] LABS: BASO # 0.1 x10^3/uL (0.0-0.2); BASO % 1 % (0-3); EOS # 0.2 x10^3/uL (0.0-0.7); EOS % 3 % (0-3); HEMATOCRIT 39.7 % (39.0-53.0); HEMOGLOBIN 12.6 g/dL (13.0-17.5); LYMPH # 1.6 x10^3/uL (1.0-4.8); LYMPH % 27 % (24-48); MEAN CORPUSCULAR HEMOGLOBIN 29 pg (25-35); MEAN CORPUSCULAR HGB CONC 32 g/dL (31-37); MEAN CORPUSCULAR VOLUME 91 fL (79-100); MONO # 0.9 x10^3/uL (0.0-1.1); MONO % 15 % (0-9); NEUT # 3.3 x10^3uL (1.8-7.7); NEUT % 55 % (31-73); PLATELET COUNT 200 x10^3/uL (140-400); RED BLOOD COUNT 4.37 x10^6/uL (4.30-5.70); RED CELL DISTRIBUTION WIDTH 23.5 % (11.5-14.5); WHITE BLOOD COUNT 6.1 x10^3/uL (4.0-11.0)
--- NOTE | 2019-01-20 13:57 | RAD ---
Examination: CT ABDOMEN PELVIS WO CONTRAST History: right flank pain today
previous Comparison/Correlation: 01/28/2018 CT abdomen and pelvis without contrast Findings: Axial images of the abdomen and pelvis were obtained without contrast. Sagittal and coronal reformatted images were provided. Minimal costophrenic sulcus atelectasis is present. Liver, spleen, and adrenal glands are normal. Gallbladder fossa is unremarkable. Pancreas is unremarkable. Left renal low-attenuation lesion which may represent a cyst is present at the interpolar region. Perinephric stranding is present bilaterally and greater on the right. No hydronephrosis or hydroureter. No radiopaque collecting system calculi. Large quantity of stool in the colon is present. No extraluminal gas or bowel obstruction. Appendix is normal. Urinary bladder is mostly decompressed. Prostate gland is borderline in size. No ascites or pelvic free fluid. Bony structures are unremarkable. Impression: No radiopaque collecting system calculus. There is right perinephric stranding without collecting system distention and this finding is new since the prior CT exam. Findings may represent pyelonephritis, recent passage of calculus, or other inflammatory process. Appendix is normal. PQRS Compliance Statement: One or more of the following individualized dose reduction techniques were utilized for this examination: 1. Automated exposure control 2. Adjustment of the mA and/or kV according to patient size 3. Use of iterative reconstruction technique Electronically signed by: Brett Rodriguez MD (01/20/2019 1:55 PM) [facility]
[2019-01-20 14:04] LABS: CALCIUM 9.9 mg/dL (8.5-10.1); CREATININE 9.5 mg/dL (0.7-1.3); GFR 7.2; POTASSIUM 5.5 mmol/L (3.5-5.1)
[2019-01-20 14:09] LABS: ANISOCYTOSIS MOD; PLT ESTIMATE ADEQUATE (ADEQUATE)
[2019-01-20 14:10] LABS: ALBUMIN 4.2 g/dL (3.4-5.0); ALBUMIN/GLOBULIN RATIO 0.8 (1.0-1.7); TOTAL BILIRUBIN 0.3 mg/dL (0.2-1.0); TOTAL PROTEIN 9.2 g/dL (6.4-8.2)
[2019-01-20 14:10] LABS: POIKILOCYTOSIS SLIGHT; TARGET CELLS FEW
[2019-01-20 14:11] LABS: SCHISTOCYTES OCC
[2019-01-20 14:24] LABS: AMYLASE 91 U/L (25-115); LIPASE 323 U/L (73-393)
[2019-01-20] MEDS ORDERED: INSULIN REGULAR 100 UNIT/ML 3ML VIAL. IV ONE (14:45)
[2019-01-20] MEDS ORDERED: ALBUTEROL SULFATE 2.5 MG/3 ML NEBU. CONT NEB ONE (14:45)
[2019-01-20] MEDS ORDERED: CALCIUM GLUCONATE 1,000 MG/10 ML VIAL. IVP ONE (14:45)
[2019-01-20] MEDS ORDERED: DEXTROSE 50% 25 GM / 50ML DISP.SYRIN. IV ONE (14:45)
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
[2019-01-20] MEDS ORDERED: ONDANSETRON PF 4 MG/2 ML VIAL. IV PRN (17:30)
[2019-01-20] MEDS ORDERED: MORPHINE SULFATE 2 MG/ML VIAL. IV PRN (17:30)
[2019-01-20] MEDS ORDERED: DOCUSATE SODIUM 100 MG CAPSULE. PO PRN (18:00)
[2019-01-20] MEDS ORDERED: NITROGLYCERIN SUBLINGUAL 0.4 MG BOTTLE OF 25. SL PRN (18:00)
[2019-01-20] MEDS ORDERED: NON FORMULARY ITEM (Menthol (Biofreeze) 118 ML) TP PRN (18:00)
[2019-01-20] MEDS ORDERED: cloNIDine HCL 0.2 MG TABLET PO PRN (18:00)
[2019-01-20] MEDS ORDERED: ACETAMINOPHEN 325 MG TABLET. PO PRN (18:00)
[2019-01-20] MEDS ORDERED: CALCIUM CARBONATE 500 MG TABLET PO PRN (18:00)
[2019-01-20 18:02] VITALS: BP 183/112
[2019-01-20] MEDS ORDERED: BISACODYL 10 MG SUPP.RECT. PR PRN (18:15)
[2019-01-20] MEDS ORDERED: BUSP5TAB PO (18:16)
[2019-01-20] MEDS ORDERED: QUET25TA5 PO (18:16)
[2019-01-20] MEDS ORDERED: SEVE800T9 PO (18:16)
[2019-01-20] MEDS ORDERED: HYDR-2869 PO (18:16)
[2019-01-20] MEDS ORDERED: METO100T7 PO (18:16)
[2019-01-20] MEDS ORDERED: HYDR50CA PO (18:16)
[2019-01-20] MEDS ORDERED: CLON1PAT3 TD (18:16)
[2019-01-20] MEDS ORDERED: QUET50TA5 PO (18:16)
[2019-01-20] MEDS ORDERED: NIFE60TA PO (18:18)
[2019-01-20] MEDS: SEVELAMER CARBONATE 800 MG TABLET. PO SCH (18:30)
[2019-01-20] MEDS: QUEtiapine 25 MG TABLET. PO SCH ×2 (19:04→20:53)
[2019-01-20 19:50] VITALS: BP 118/95
[2019-01-20] MEDS: VITAMIN B COMPLEX TABLET. PO SCH (20:52)
[2019-01-20] MEDS: traZODone 50 MG TABLET. PO SCH (20:53)
[2019-01-20] MEDS: busPIRone 5 MG TABLET. PO SCH (20:53)
[2019-01-20] MEDS: SENNOSIDES/DOCUSATE 8.6/50MG TABLET. PO SCH (20:53)
[2019-01-20] MEDS: METOPROLOL TART IMMED RELEASE 50 MG TABLET. PO SCH (20:54)
[2019-01-20] MEDS: oxyCODONE IR 5 MG TABLET PO PRN (20:54)
[2019-01-20] MEDS ORDERED: NIFEDIPINE PO SCH (21:00)
[2019-01-20] MEDS: MINERAL OIL/PETROLATUM TOPICAL CREAM 113GM JAR. TP SCH (21:03)
[2019-01-20 23:22] VITALS: BP 158/93
[2019-01-21 03:00] VITALS: BP 129/83
[2019-01-21 06:23] LABS: BASO # 0.1 x10^3/uL (0.0-0.2); BASO % 1 % (0-3); EOS # 0.2 x10^3/uL (0.0-0.7); EOS % 3 % (0-3); HEMATOCRIT 36.9 % (39.0-53.0); HEMOGLOBIN 11.6 g/dL (13.0-17.5); LYMPH # 1.9 x10^3/uL (1.0-4.8); LYMPH % 29 % (24-48); MEAN CORPUSCULAR HEMOGLOBIN 29 pg (25-35); MEAN CORPUSCULAR HGB CONC 32 g/dL (31-37); MEAN CORPUSCULAR VOLUME 91 fL (79-100); MONO # 0.8 x10^3/uL (0.0-1.1); MONO % 12 % (0-9); NEUT # 3.5 x10^3uL (1.8-7.7); NEUT % 55 % (31-73); PLATELET COUNT 175 x10^3/uL (140-400); RED BLOOD COUNT 4.05 x10^6/uL (4.30-5.70); RED CELL DISTRIBUTION WIDTH 23.7 % (11.5-14.5); WHITE BLOOD COUNT 6.4 x10^3/uL (4.0-11.0)
[2019-01-21] MEDS: oxyCODONE IR 5 MG TABLET PO PRN ×3 (06:29→20:12)
[2019-01-21 06:30] LABS: CALCIUM 9.5 mg/dL (8.5-10.1); CREATININE 11.6 mg/dL (0.7-1.3); GFR 5.7; POTASSIUM 5.3 mmol/L (3.5-5.1)
[2019-01-21 07:30] VITALS: BP 147/87
--- NOTE | 2019-01-21 07:43 | EKG ---
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
[2019-01-21] MEDS: MINERAL OIL/PETROLATUM TOPICAL CREAM 113GM JAR. TP SCH ×2 (08:17→22:43)
[2019-01-21] MEDS: POLYETHYLENE GLYCOL 3350 17 GM PACKET. PO SCH (08:18)
[2019-01-21] MEDS: busPIRone 5 MG TABLET. PO SCH ×2 (08:18→20:13)
[2019-01-21] MEDS: METOPROLOL TART IMMED RELEASE 50 MG TABLET. PO SCH ×2 (08:19→20:14)
[2019-01-21] MEDS: CHOLECALCIFEROL (VITAMIN D3) 5,000 UNIT CAPSULE PO SCH (08:19)
[2019-01-21] MEDS: CALCIUM CARBONATE 500 MG TABLET PO SCH ×3 (08:19→16:30)
[2019-01-21] MEDS: SENNOSIDES/DOCUSATE 8.6/50MG TABLET. PO SCH ×2 (08:20→20:14)
[2019-01-21] MEDS: QUEtiapine 25 MG TABLET. PO SCH ×4 (08:20→20:14)
[2019-01-21] MEDS: CLOPIDOGREL BISULFATE 75 MG TABLET PO SCH (08:20)
[2019-01-21] MEDS: SEVELAMER CARBONATE 800 MG TABLET. PO SCH ×3 (08:20→17:50)
[2019-01-21] MEDS ORDERED: cloNIDine TTS-3 1 PATCH PATCH.TDWK TD SCH (09:00)
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
[2019-01-21 11:00] VITALS: BP 153/91
[2019-01-21] MEDS: ONDANSETRON ODT 4 MG TAB.RAPDIS. PO PRN (11:12)
[2019-01-21] MEDS: FAMOTIDINE 20 MG TABLET. PO SCH (11:13)
--- NOTE | 2019-01-21 12:33 | PDOC2 ---
CONSULT Date of Consult Date of Consult DATE: 01/21/19 TIME: 12:25 Reason for Consult Reason for Consult: ESRD WITH AVF PAIN Referring Physician Referring Physician: ZULEMA Identification/Chief Complaint Chief Complaint LEFT ARM AVF PAIN AND RIGHT FLANK PAIN Source Source: Chart review, Patient History of Present Illness Reason for Visit: THIS IS A 48 YR OLD ESRD PT WHO HAS OP HD ON TTS VIA HIS LEFT ARM AV ACCESS. HE CAME IN WITH PAIN IN HIS ACCESS AND ALSO RIGHT FLANK PAIN. NO OTHER COMPLAINTS. IMAGING IS SUGGESTIVE OF POSS PYELONEPHRITIS THERE IS SOME RIGHT PERINEPHRIC STRANDING WHICH IS NEW WHEN COMPARED TO HIS PRIOR CT. LABS ARE C/W ESRD AND MILD HYPERKALEMIA. OVERALL FEELING BETTER SINCE HERE. NO LEUCOCYTOSIS OR ANY SIGNIFICANT LEFT SHIFT ON HIS CBC NOTED Past Medical History Cardiovascular: CHF, HTN, Other Pulmonary: Other CENTRAL NERVOUS SYSTEM: CVA GI: GERD, Other Heme/Onc: Anemia NOS Hepatobiliary: Cholelithiasis Psych: Other Musculoskeletal: Osteoarthritis, Other Rheumatologic: No pertinent hx Infectious disease: Other Renal/: Chronic renal failure Endocrine: Hyperparathyroidism Past Surgical History Past Surgical History: Other Family History Family History: Hypertension Social History ALCOHOL: none Drugs: None Lives: Alf Current Medications Current Medications Current Medications Fentanyl Citrate (Fentanyl 2ml Vial) 50 mcg 1X ONCE IV Last administered on at 13:14; Start 01/20/19 at 13:15; Stop 01/20/19 at 13:16; Status DC Calcium Gluconate (Calcium Gluconate) 1,000 mg 1X ONCE IVP Last administered on 01/20/19at 15:49; Start 01/20/19 at 14:45; Stop 01/20/19 at 14:51; Status DC Dextrose (Dextrose 50%-Water Syringe) 25 gm 1X ONCE IV Last administered on at 15:49; Start 01/20/19 at 14:45; Stop 01/20/19 at 14:51; Status DC Insulin Human Regular (HumuLIN R VIAL) 10 unit 1X ONCE IV Last administered on 01/20/19at 15:50; Start 01/20/19 at 14:45; Stop 01/20/19 at 14:51; Status DC Albuterol Sulfate (Ventolin Neb Soln) 10 mg 1X ONCE CONT NEB Last administered on 01/20/19at 15:08; Start 01/20/19 at 14:45; Stop 01/20/19 at 14:51 ; Status DC Ondansetron HCl (Zofran) 4 mg PRN Q8HRS PRN IV NAUSEA/VOMITING; Start 01/20/19 at 17:30; Stop 01/21/19 at 17:29 Morphine Sulfate (Morphine Sulfate) 2 mg PRN Q2HR PRN IV PAIN; Start 01/20/19 at 17:30; Stop 01/21/19 at 17:29 Acetaminophen (Tylenol) 650 mg PRN Q4HRS PRN PO PAIN; Start 01/20/19 at 18:00 Calcium Carbonate/ Glycine (Oscal) 1,500 mg TIDAC PO Last administered on at 08:19; Start 01/21/19 at 07:30 Calcium Carbonate/ Glycine (Oscal) 500 mg PRN Q4HRS PRN PO DYSPEPSIA; Start at 18:00 Clonidine HCl (Catapres) 0.2 mg PRN Q12HR PRN PO HYPERTENSION, SEE COMMENTS; Start 01/20/19 at 18:00 Clopidogrel Bisulfate (Plavix) 75 mg DAILY PO Last administered on 01/21/19 08 :20; Start 01/21/19 at 09:00 Docusate Sodium (Colace) 100 mg PRN BID PRN PO CONSTIPATION; Start 01/20/19 at 18:00 Famotidine (Pepcid) 10 mg DAILY10 PO Last administered on 01/21/19at 11:13; Start 01/21/19 at 10:00 Nitroglycerin (Nitrostat) 0.4 mg PRN Q5MIN PRN SL CHEST PAIN; Start 01/20/19 at 18:00 Ondansetron HCl (Zofran Odt) 4 mg PRN Q4HRS PRN PO NAUSEA/VOMITING Last administered on 01/21/19at 11:12; Start 01/20/19 at 18:00 Oxycodone HCl (Roxicodone) 5 mg PRN Q4HRS PRN PO PAIN Last administered on 01/21 06:29; Start 01/20/19 at 18:00 Senna/Docusate Sodium (Senna Plus) 1 tab BID PO Last administered on 01/21/19at 08:20; Start 01/20/19 at 21:00 Trazodone HCl (Desyrel) 50 mg QHS PO Last administered on 01/20/19 20:53; Start 01/20/19 at 21:00 Vitamin B Complex (Mitul B) 1 tab DAILYWSUP PO Last administered on 01/20/19 20 :52; Start 01/20/19 at 21:00 Bisacodyl (Dulcolax Supp) 10 mg PRN DAILY PRN [place] CONSTIPATION; Start 01/20/19 at 18:15 Vitamin D (Vitamin D3) 5,000 unit DAILY PO Last administered on 01/21/19 08:19 ; Start 01/21/19 at 09:00 Non-Formulary Medication (Menthol (Biofreeze)) 118 ml PRN Q4HRS PRN TP PAIN; Start 01/20/19 at 18:00; Status UNV Multi-Ingred Cream/Lotion/Oil/ Oint (Hydrocerin Cream) 1 lakia BID TP Last administered on 01/21/19 08:17; Start 01/20/19 at 21:00 Nifedipine (Procardia Xl) 60 mg BID PO Last administered on 01/21/19 08:19; Start 01/20/19 at 21:00 Polyethylene Glycol (miraLAX PACKET) 17 gm DAILY PO Last administered on 08:18; Start 01/21/19 at 09:00 Buspirone HCl (Buspar) 5 mg BID PO Last administered on 01/21/19 08:18; Start 01/20/19 at 21:00 Clonidine HCl (Catapres Tts-3) 1 patch WEEKLY TD Last administered on 08:18; Start 01/21/19 at 09:00 Sevelamer Carbonate (Renvela) 2,400 mg TIDWMEALS PO Last administered on 08:20; Start 01/20/19 at 19:00 Hydralazine HCl (Apresoline) 50 mg TID PO Last administered on 01/21/19 08:20 ; Start 01/20/19 at 19:00 Hydroxyzine Pamoate (Vistaril) 50 mg QTUTHSA PO ; Start 01/22/19 at 16:00 Metoprolol Tartrate (Lopressor) 100 mg BID PO Last administered on 3/25/19at 08 :19; Start 01/20/19 at 21:00 Non-Formulary Medication (Nifedipine (Procardia Xl)) 1 tab BID PO ; Start at 21:00; Stop 01/20/19 at 21:00; Status DC Quetiapine Fumarate (SEROquel) 25 mg TIDWMEALS PO Last administered on at 11:12; Start 01/20/19 at 19:00 Quetiapine Fumarate (SEROquel) 50 mg QHS PO Last administered on 01/20/19at 20: 53; Start 01/20/19 at 21:00 Active Scripts Active Reported Procardia Xl (Nifedipine) 60 Mg Tab.er.24 1 Tab PO BID Vistaril (Hydroxyzine Pamoate) 50 Mg Capsule 1 Cap PO QTUTHSA Seroquel (Quetiapine Fumarate) 50 Mg Tablet 1 Tab PO QHS Seroquel (Quetiapine Fumarate) 25 Mg Tablet 25 Mg PO TID Renvela (Sevelamer Carbonate) 800 Mg Tablet 3 Tab PO TID Metoprolol Tartrate 100 Mg Tablet 1 Tab PO BID Hydralazine Hcl 50 Mg Tablet 1 Tab PO TID Clonidine Tts-3 (Clonidine) 1 Each Patch.tdwk 1 Patch TD WEEKLY Buspirone Hcl 5 Mg Tablet 1 Tab PO BID Hydrocerin Lotion (Mineral Oil/I-Prop Myr/Water) 472 Ml Lotion 472 Ml TP BID Appy to dry areas topically every day and night clerk for skin protectant Docusate Sodium 100 Mg Capsule 100 Mg PO PRN BID PRN Clonidine Hcl 0.2 Mg Tablet 0.2 Mg PO PRN Q12HR PRN for SBP >150 Bisacodyl 10 Mg Supp.rect 10 Mg RC PRN DAILY PRN Biofreeze (Menthol) 118 Ml Gel..ml. 118 Ml TP PRN Q4HRS PRN Apply to shoulders B Complex (Vitamin B Complex) 1 Each Tablet 1 Each PO DAILYWSUP Zofran Odt (Ondansetron) 4 Mg Tab.rapdis 4 Mg PO PRN Q4HRS PRN Calcium Carbonate 500 Mg Tablet 500 Mg PO PRN Q4HRS PRN Calcium Carbonate 500 Mg Tablet 1,500 Mg PO TIDAC Senna S Tablet (Sennosides/Docusate Sodium) 1 Each Tablet 1 Each PO BID Oxycodone Hcl Immed.release (Oxycodone Hcl) 5 Mg Tablet 1 Tab PO PRN Q4HRS PRN NITROGLYCERIN SubLingual (Nitroglycerin) 0.4 Mg Tab.subl 0.4 Mg SL PRN Q5MIN PRN Miralax (Polyethylene Glycol 3350) 17 Gm Powd.pack 1 Packet PO DAILY Tylenol (Acetaminophen) 325 Mg Tablet 1-2 Tab PO PRN Q4HRS PRN Clopidogrel (Clopidogrel Bisulfate) 75 Mg Tablet 1 Tab PO DAILY Famotidine 20 Mg Tablet 20 Mg PO DAILY10 Trazodone Hcl 50 Mg Tablet 1 Tab PO QHS Vitamin D3 (Cholecalciferol (Vitamin D3)) 5,000 Unit Tablet 5,000 Unit PO DAILY Allergies Allergies: Coded Allergies: No Known Medication Allergies (Verified Allergy, Unknown, 04/06/18) ROS General: YES: Fatigue, Appetite PSYCHOLOGICAL ROS: YES: Anxiety, Depression Eyes: Yes Decreased vision HEENT: YES: Heacaches ALLERGY AND IMMUNOLOGY: YES: Seasonal Allergies Respiratory: YES: Cough, Shortness of breath Gastrointestinal: Yes Abdominal Pain Genitourinary: YES Flank Pain Musculoskeletal: Yes Muscular Weakness Neurological: Yes Weakness Skin: Yes Dry Skin Physical Exam General: Alert, Oriented X3, No acute distress HEENT: Atraumatic, PERRLA, EOMI, Mucous membr. moist/pink Lungs: Clear to auscultation Heart: Regular rate, Normal S2 Abdomen: Normal bowel sounds, Soft, No tenderness Extremities: No cyanosis Skin: No breakdown Neuro: Normal speech, Sensation intact, Cranial nerves 3-12 NL Psych/Mental Status: Mental status NL, Mood NL MUSCULOSKELETAL: No joint tenderness, No deformity, No swelling Vitals VITALS Vital Signs Date Time Temp Pulse Resp B/P (MAP) Pulse Ox O2 Delivery O2 Flow Rate FiO2 01/21/19 11:00 98.9 76 30 153/91 (111) 96 Room Air 98.9 Labs Labs Laboratory Tests Test 01/20/19 12:55 01/20/19 13:50 01/21/19 05:05 White Blood Count 6.1 x10^3/uL (4.0-11.0) 6.4 x10^3/uL (4.0-11.0) Red Blood Count 4.37 x10^6/uL (4.30-5.70) 4.05 x10^6/uL (4.30-5.70) Hemoglobin 12.6 g/dL (13.0-17.5) 11.6 g/dL (13.0-17.5) Hematocrit 39.7 % (39.0-53.0) 36.9 % (39.0-53.0) Mean Corpuscular Volume 91 fL (79-100) 91 fL (79-100) Mean Corpuscular Hemoglobin 29 pg (25-35) 29 pg (25-35) Mean Corpuscular Hemoglobin Concent 32 g/dL (31-37) 32 g/dL (31-37) Red Cell Distribution Width 23.5 % (11.5-14.5) 23.7 % (11.5-14.5) Platelet Count 200 x10^3/uL (140-400) 175 x10^3/uL (140-400) Neutrophils (%) (Auto) 55 % (31-73) 55 % (31-73) Lymphocytes (%) (Auto) 27 % (24-48) 29 % (24-48) Monocytes (%) (Auto) 15 % (0-9) 12 % (0-9) Eosinophils (%) (Auto) 3 % (0-3) 3 % (0-3) Basophils (%) (Auto) 1 % (0-3) 1 % (0-3) Neutrophils # (Auto) 3.3 x10^3uL (1.8-7.7) 3.5 x10^3uL (1.8-7.7) Lymphocytes # (Auto) 1.6 x10^3/uL (1.0-4.8) 1.9 x10^3/uL (1.0-4.8) Monocytes # (Auto) 0.9 x10^3/uL (0.0-1.1) 0.8 x10^3/uL (0.0-1.1) Eosinophils # (Auto) 0.2 x10^3/uL (0.0-0.7) 0.2 x10^3/uL (0.0-0.7) Basophils # (Auto) 0.1 x10^3/uL (0.0-0.2) 0.1 x10^3/uL (0.0-0.2) Platelet Estimate Adequate (ADEQUATE) Large Platelets Occ Poikilocytosis Slight Anisocytosis Mod Macrocytosis Slight Target Cells Few Schistocytes Occ Sodium Level 136 mmol/L (136-145) 137 mmol/L (136-145) Potassium Level 5.5 mmol/L (3.5-5.1) 5.3 mmol/L (3.5-5.1) Chloride Level 95 mmol/L (98-107) 96 mmol/L (98-107) Carbon Dioxide Level 26 mmol/L (21-32) 29 mmol/L (21-32) Anion Gap 15 (6-14) 12 (6-14) Blood Urea Nitrogen 48 mg/dL (8-26) 58 mg/dL (8-26) Creatinine 9.5 mg/dL (0.7-1.3) 11.6 mg/dL (0.7-1.3) Estimated GFR (Cockcroft-Gault) 7.2 5.7 BUN/Creatinine Ratio 5 (6-20) Glucose Level 110 mg/dL (70-99) 94 mg/dL (70-99) Calcium Level 9.9 mg/dL (8.5-10.1) 9.5 mg/dL (8.5-10.1) Total Bilirubin 0.3 mg/dL (0.2-1.0) Aspartate Amino Transf (AST/SGOT) 11 U/L (15-37) Alanine Aminotransferase (ALT/SGPT) 15 U/L (16-63) Alkaline Phosphatase 100 U/L (46-116) Total Protein 9.2 g/dL (6.4-8.2) Albumin 4.2 g/dL (3.4-5.0) Albumin/Globulin Ratio 0.8 (1.0-1.7) Amylase Level 91 U/L (25-115) Lipase 323 U/L (73-393) Laboratory Tests Test 01/20/19 12:55 01/20/19 13:50 01/21/19 05:05 White Blood Count 6.1 x10^3/uL (4.0-11.0) 6.4 x10^3/uL (4.0-11.0) Red Blood Count 4.37 x10^6/uL (4.30-5.70) 4.05 x10^6/uL (4.30-5.70) Hemoglobin 12.6 g/dL (13.0-17.5) 11.6 g/dL (13.0-17.5) Hematocrit 39.7 % (39.0-53.0) 36.9 % (39.0-53.0) Mean Corpuscular Volume 91 fL (79-100) 91 fL (79-100) Mean Corpuscular Hemoglobin 29 pg (25-35) 29 pg (25-35) Mean Corpuscular Hemoglobin Concent 32 g/dL (31-37) 32 g/dL (31-37) Red Cell Distribution Width 23.5 % (11.5-14.5) 23.7 % (11.5-14.5) Platelet Count 200 x10^3/uL (140-400) 175 x10^3/uL (140-400) Neutrophils (%) (Auto) 55 % (31-73) 55 % (31-73) Lymphocytes (%) (Auto) 27 % (24-48) 29 % (24-48) Monocytes (%) (Auto) 15 % (0-9) 12 % (0-9) Eosinophils (%) (Auto) 3 % (0-3) 3 % (0-3) Basophils (%) (Auto) 1 % (0-3) 1 % (0-3) Neutrophils # (Auto) 3.3 x10^3uL (1.8-7.7) 3.5 x10^3uL (1.8-7.7) Lymphocytes # (Auto) 1.6 x10^3/uL (1.0-4.8) 1.9 x10^3/uL (1.0-4.8) Monocytes # (Auto) 0.9 x10^3/uL (0.0-1.1) 0.8 x10^3/uL (0.0-1.1) Eosinophils # (Auto) 0.2 x10^3/uL (0.0-0.7) 0.2 x10^3/uL (0.0-0.7) Basophils # (Auto) 0.1 x10^3/uL (0.0-0.2) 0.1 x10^3/uL (0.0-0.2) Platelet Estimate Adequate (ADEQUATE) Large Platelets Occ Poikilocytosis Slight Anisocytosis Mod Macrocytosis Slight Target Cells Few Schistocytes Occ Sodium Level 136 mmol/L (136-145) 137 mmol/L (136-145) Potassium Level 5.5 mmol/L (3.5-5.1) 5.3 mmol/L (3.5-5.1) Chloride Level 95 mmol/L (98-107) 96 mmol/L (98-107) Carbon Dioxide Level 26 mmol/L (21-32) 29 mmol/L (21-32) Anion Gap 15 (6-14) 12 (6-14) Blood Urea Nitrogen 48 mg/dL (8-26) 58 mg/dL (8-26) Creatinine 9.5 mg/dL (0.7-1.3) 11.6 mg/dL (0.7-1.3) Estimated GFR (Cockcroft-Gault) 7.2 5.7 BUN/Creatinine Ratio 5 (6-20) Glucose Level 110 mg/dL (70-99) 94 mg/dL (70-99) Calcium Level 9.9 mg/dL (8.5-10.1) 9.5 mg/dL (8.5-10.1) Total Bilirubin 0.3 mg/dL (0.2-1.0) Aspartate Amino Transf (AST/SGOT) 11 U/L (15-37) Alanine Aminotransferase (ALT/SGPT) 15 U/L (16-63) Alkaline Phosphatase 100 U/L (46-116) Total Protein 9.2 g/dL (6.4-8.2) Albumin 4.2 g/dL (3.4-5.0) Albumin/Globulin Ratio 0.8 (1.0-1.7) Amylase Level 91 U/L (25-115) Lipase 323 U/L (73-393) Images Images Examination: CT ABDOMEN PELVIS WO CONTRAST History: right flank pain today
previous Comparison/Correlation: 01/28/2018 CT abdomen and pelvis without contrast Findings: Axial images of the abdomen and pelvis were obtained without contrast. Sagittal and coronal reformatted images were provided. Minimal costophrenic sulcus atelectasis is present. Liver, spleen, and adrenal glands are normal. Gallbladder fossa is unremarkable. Pancreas is unremarkable. Left renal low-attenuation lesion which may represent a cyst is present at the interpolar region. Perinephric stranding is present bilaterally and greater on the right. No hydronephrosis or hydroureter. No radiopaque collecting system calculi. Large quantity of stool in the colon is present. No extraluminal gas or bowel obstruction. Appendix is normal. Urinary bladder is mostly decompressed. Prostate gland is borderline in size. No ascites or pelvic free fluid. Bony structures are unremarkable. Impression: No radiopaque collecting system calculus. There is right perinephric stranding without collecting system distention and this finding is new since the prior CT exam. Findings may represent pyelonephritis, recent passage of calculus, or other inflammatory process. Appendix is normal. Assessment/Plan Assessment/Plan IMP ESRD ANEMIA LEFT ARM AVF PAIN-MOSTLY RESOLVED AND PROB FROM CANNULATION-NO SIGNS OF INFECTION OR THROMBUS RIGHT FLANK PAIN-POSSIBLE PYELO OR STONE PASSAGE OR POSSIBLE CONSTIPATION HYPERKALEMIA DM II HTN PLAN HD TTS [facility] WHEN NEEDED HOME MEDS UA IF HE CAN PROVIDE WILL FOLLOW MARLYS HAGEN MD Jan 21, 2019 12:33
[2019-01-21 15:00] VITALS: BP 160/99
[2019-01-21] MEDS: VITAMIN B COMPLEX TABLET. PO SCH (17:00)
[2019-01-21 19:55] VITALS: BP 175/100
[2019-01-21] MEDS: traZODone 50 MG TABLET. PO SCH (20:13)
[2019-01-21 23:20] VITALS: BP 180/99
[2019-01-21] MEDS ORDERED: CALC300T5 PO ×2 (23:30)
[2019-01-21] MEDS: CALCIUM CARBONATE 500 MG TAB.CHEW PO PRN (23:37)
[2019-01-22 03:43] VITALS: BP 167/93
[2019-01-22 05:20] LABS: HEMATOCRIT 35.3 % (39.0-53.0); HEMOGLOBIN 11.5 g/dL (13.0-17.5); RED BLOOD COUNT 3.87 x10^6/uL (4.30-5.70); RED CELL DISTRIBUTION WIDTH 23.8 % (11.5-14.5); WHITE BLOOD COUNT 5.2 x10^3/uL (4.0-11.0)
[2019-01-22 05:38] LABS: CALCIUM 9.2 mg/dL (8.5-10.1); CREATININE 14.6 mg/dL (0.7-1.3); GFR 4.4
[2019-01-22 05:42] LABS: POTASSIUM 5.4 mmol/L (3.5-5.1)
[2019-01-22 07:15] VITALS: BP 132/82
[2019-01-22] MEDS ORDERED: IV NORMAL SALINE 1000ML BAG 1,000 ML IV PRN ×2 (07:34)
[2019-01-22] MEDS ORDERED: DIALYSIS PATIENT. MC PRN ×2 (07:45)
[2019-01-22] MEDS ORDERED: LIDOCAINE 1% Multi-Dose 20 ML VIAL. INJ ONE (07:45)
[2019-01-22] MEDS: SEVELAMER CARBONATE 800 MG TABLET. PO SCH ×4 (08:00→17:30)
[2019-01-22] MEDS: QUEtiapine 25 MG TABLET. PO SCH ×4 (08:00→21:15)
[2019-01-22] MEDS: busPIRone 5 MG TABLET. PO SCH ×2 (09:00→21:14)
[2019-01-22] MEDS: METOPROLOL TART IMMED RELEASE 50 MG TABLET. PO SCH ×2 (09:00→21:14)
[2019-01-22] MEDS: ONDANSETRON ODT 4 MG TAB.RAPDIS. PO PRN (10:16)
[2019-01-22] MEDS: CALCIUM CARBONATE 500 MG TAB.CHEW PO SCH ×3 (10:16→16:43)
--- NOTE | 2019-01-22 11:35 | PDOC ---
Provider Note Provider Note Pt seen and examined Abdominal pain ,flank pain resolved LUE access pain resolved NO wbc or fever consult dictated Thank you FAUSTO BERNSTEIN MD Jan 22, 2019 11:35
--- NOTE | 2019-01-22 13:12 | PDOC ---
Renal-Progress Notes Subjective Notes Notes FEELING BETTER History of Present Illness Hx of present illness STABLE Vitals Vitals Vital Signs Date Time Temp Pulse Resp B/P (MAP) Pulse Ox O2 Delivery O2 Flow Rate FiO2 01/22/19 08:00 Room Air 01/22/19 07:15 98.0 76 18 132/82 (99) 95 98.0 Weight Weight [ ] I.O. Intake and Output Intake and Output 01/22/19 06:59 Intake Total 860 ml Output Total 0 ml Balance 860 ml Intake Oral 860 ml Output Urine Total 0 ml Labs Labs Laboratory Tests Test 01/22/19 04:45 01/22/19 10:00 01/22/19 12:27 White Blood Count 5.2 x10^3/uL (4.0-11.0) Red Blood Count 3.87 x10^6/uL (4.30-5.70) Hemoglobin 11.5 g/dL (13.0-17.5) Hematocrit 35.3 % (39.0-53.0) Mean Corpuscular Volume 91 fL (79-100) Mean Corpuscular Hemoglobin 30 pg (25-35) Mean Corpuscular Hemoglobin Concent 32 g/dL (31-37) Red Cell Distribution Width 23.8 % (11.5-14.5) Platelet Count 148 x10^3/uL (140-400) Sodium Level 138 mmol/L (136-145) Potassium Level 5.4 mmol/L (3.5-5.1) Chloride Level 95 mmol/L (98-107) Carbon Dioxide Level 29 mmol/L (21-32) Anion Gap 14 (6-14) Blood Urea Nitrogen 66 mg/dL (8-26) Creatinine 14.6 mg/dL (0.7-1.3) Estimated GFR (Cockcroft-Gault) 4.4 Glucose Level 110 mg/dL (70-99) Calcium Level 9.2 mg/dL (8.5-10.1) C-Reactive Protein, Quantitative 15.3 mg/L (0-3.3) Hepatitis B Surface Antigen Nonreactive (Nonreactive) Hepatitis B Surface Antibody Reactive Erythrocyte Sedimentation Rate 28 (0-15) Glucose (Fingerstick) 102 mg/dL (70-99) Review of Systems Constitutional: yes: alert, oriented Ears/Nose/Throat: Yes: no symptom reported Eyes: Yes: no symptom reported Pulmonary: Yes no symptom reported Cardiovascular: Yes no symptom reported Genitourinary: Yes: no symptom reported Musculoskeletal: Yes: no symptom reported Skin: Yes no symptom reported Psychiatric/Neurological: Yes: no symptom reported Endocrine: Yes: no symptom reported Physical Exam General Appearance: no apparent distress Skin: warm Heart: S1S2 Abdomen: soft, bowel sounds present Genitourinary: bladder flat Extremities: pulses present Neurology: alert Musculoskeletal: Osteoarthritis, Other Assessment Assessment IMP ESRD ANEMIA LEFT ARM AVF PAIN-MOSTLY RESOLVED RIGHT FLANK PAIN-IMPROVING HYPERKALEMIA DM II HTN PLAN HD TODAY UF TO DW [facility] WHEN NEEDED HOME MEDS WILL FOLLOW MARLYS HAGEN MD Jan 22, 2019 13:12
[2019-01-22] MEDS: CHOLECALCIFEROL (VITAMIN D3) 5,000 UNIT CAPSULE PO SCH (13:54)
[2019-01-22] MEDS: CLOPIDOGREL BISULFATE 75 MG TABLET PO SCH (13:54)
[2019-01-22] MEDS: FAMOTIDINE 20 MG TABLET. PO SCH (13:54)
[2019-01-22] MEDS: POLYETHYLENE GLYCOL 3350 17 GM PACKET. PO SCH (13:55)
[2019-01-22] MEDS: SENNOSIDES/DOCUSATE 8.6/50MG TABLET. PO SCH ×2 (13:55→21:14)
[2019-01-22] MEDS: MINERAL OIL/PETROLATUM TOPICAL CREAM 113GM JAR. TP SCH ×2 (14:14→21:15)
[2019-01-22 15:00] VITALS: BP 129/79
[2019-01-22] MEDS ORDERED: hydrOXYzine PAMOATE 25 MG CAPSULE PO SCH (16:00)
[2019-01-22] MEDS: VITAMIN B COMPLEX TABLET. PO SCH (16:40)
[2019-01-22] MEDS: CALCIUM CARBONATE 500 MG TAB.CHEW PO PRN (17:46)
[2019-01-22] MEDS: oxyCODONE IR 5 MG TABLET PO PRN (17:52)
[2019-01-22 19:39] VITALS: BP 134/91
[2019-01-22] MEDS: traZODone 50 MG TABLET. PO SCH (21:14)
--- NOTE | 2019-01-22 22:26 | PN ---
DATE: 01/22/2019 SUBJECTIVE: The patient is resting, slightly propped up, having his scheduled hemodialysis. He continued to complain of pain in the right flank area, had no more nausea or vomiting. OBJECTIVE: GENERAL: When I examined him this morning, he looked pale, but no jaundice, cyanosis, or thyromegaly. No jugular venous distension. No lower limb edema. VITAL SIGNS: His heart rate was 76, blood pressure was 132/82, temperature was 98, respiratory rate was 18 and oxygen saturation was 95% on room air. HEAD, EYES, EARS, NOSE AND THROAT: Normocephalic, atraumatic. NECK: Supple. HEART: Showed normal first and second sounds. No gallop, rub or murmur. CHEST: Clear to auscultation. No crepitation or rhonchi. ABDOMEN: Distended, soft. No guarding or rigidity. No organomegaly. All hernial orifice intact. Bowel sounds normal. Some tenderness in the right flank area. NEUROLOGIC: He is awake, alert, responding appropriately. Cranial nerves are intact. He has left-sided hemiplegia. He is mostly bedbound, chair bound. He is extremely oliguric, completely anuric and hemodialysis-dependent. INTAKE AND OUTPUT: His intake over the last 24 hours and output are incompletely recorded. LABORATORY DATA: His lab work this morning showed a white cell count of 5200, hemoglobin 11.5, hematocrit was 35, and platelet of 148,000. His chemistry this morning showed a serum sodium of 138, potassium 5.4, chloride 95, bicarbonate 29, anion gap of 14, BUN 66, creatinine was 14.6, GFR was 4.4, glucose 110, calcium was 9.2. ASSESSMENT AND PLAN: 1. Right flank area with the CT scan finding compatible with pyelonephritis, recent passage of the calculus or other inflammatory process. 2. End-stage renal disease, on hemodialysis on Monday, and Monday. 3. Hypertension. 4. 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 5. Has had history before of infected left arm arteriovenous graft with resultant sepsis, status post partial excision of the graft. 6. Anemia of chronic kidney disease as well as gastroparesis. I did actually consult the Infectious Disease to see whether antibiotic treatment is warranted given that the patient is hemodynamically stable. He is afebrile. His white cell count is normal. There is no evidence of any hydronephrosis. SHIRLEY POOLE MD DR: JOSE ALBERTO/ritesh JOB#: [id number] / [id number]
[2019-01-22 23:14] VITALS: BP 141/92
--- NOTE | 2019-01-23 01:06 | CONS ---
DATE OF CONSULTATION: 01/22/2019 REFERRING PHYSICIAN: Dr. Jones. REASON FOR CONSULTATION: Possible pyelonephritis. HISTORY OF PRESENT ILLNESS: A 48-year-old male with history of end-stage renal disease, on dialysis through a right upper extremity fistula, history of right middle cerebral artery territory aneurysm rupture with resultant left-sided hemiplegia, hypertension, history of infected left arm arteriovenous graft with resultant sepsis, status post partial excision of the graft, anemia of chronic disease as well as gastroparesis, presented to the ER on 01/20/2019 with complaints of right flank pain and pain at the site of the AV fistula in the left upper extremity. The patient had CT, which showed some right perinephric stranding, which was new compared to the prior CT. His pain at the exit site had resolved. He is undergoing dialysis currently. His labs are consistent with mild hyperkalemia. He was afebrile, no leukocytosis or any significant left shift. The patient is anuric, so he is not able to provide any urine. ID consult has been requested for evaluation of need for antibiotics. PAST MEDICAL HISTORY: CHF, hypertension, end-stage renal disease, CVAs, GERD, anemia, cholelithiasis, gastroparesis, osteoarthritis, chronic renal failure, hyperparathyroidism. REVIEW OF SYSTEMS: The patient had an anxiety attack earlier while in dialysis session this morning and had one episode of nausea and vomiting. Abdominal pain, flank pain has resolved per patient. Denies any headaches, runny nose, cough, shortness of breath, fevers, chills, diarrhea, unable to make urine. No other symptoms. REVIEW OF SYSTEMS: Otherwise, negative except for above in HPI. SOCIAL HISTORY: Alcohol: None. Drugs: None. Lives at the skilled nursing. Left arm graft excision for infection in the past. FAMILY HISTORY: As per HPI. CURRENT MEDICATIONS: Antibiotics none, reviewed in medication list. ALLERGIES: No known drug allergies. PHYSICAL EXAMINATION: VITAL SIGNS: Temperature 98, pulse 76, respiratory rate 18, and blood pressure 132/82, oxygen saturation 95% on room air. GENERAL: Alert, oriented x 3 male lying in dialysis unit, in no acute distress, cooperative. HEENT: Normocephalic, atraumatic, anicteric. No thrush. Oral mucosa moist. NECK: Supple. No JVD. LUNGS: Clear bilaterally. No wheezing. ABDOMEN: Mildly distended, soft, nontender. No rebound, no guarding. Bowel sounds present. NEUROLOGIC: Alert, awake, responds appropriately. Left-sided hemiparesis, chronic changes. DERM: Warm, dry, no generalized rash. EXTREMITIES: AV fistula site looks okay. LABORATORY DATA: WBC 5.2, hemoglobin 11.5, hematocrit 35.3, platelets 148. Sodium 138, potassium 5.4, chloride 95, bicarbonate 29, BUN 66, creatinine 14.4, glucose 114. CRP 15.3. IMAGING: CT abdomen shows no radiopaque collecting duct system calculus. There is right perinephric stranding without collecting duct distention and this finding is new since the prior CT exam findings may represent pyelonephritis, recent passage of calculus or other inflammatory process. Appendix is normal. IMPRESSION: 1. Right flank pain with changes suggestive of possible pyelonephritis on CT abdomen on admission. Resolved. The patient remains afebrile, normal white count with no left shift, likely noninfectious. 2. Nausea, vomiting episode once this morning with anxiety attack during dialysis session. 3. History of gastroparesis. 4. End-stage renal disease, on hemodialysis. 5. Hyperkalemia. RECOMMENDATIONS: 1. Continue observation off antibiotics at this time. 2. If patient is able to provide urine, send for UA and urine culture. 3. If patient develops fever, low threshold to start the patient on empiric antibiotics 4. Maintain aspiration precaution. 5. Follow up labs in a.m. and cultures. 6. Continue supportive care. Thank you, Dr. Jones, for consulting Infectious Disease to participate in this patient's care. If you have any questions, do not hesitate to contact me. Discussed with RN. FAUSTO BERNSTEIN MD DR: MARILYN/ritesh JOB#: [id number] / [id number] RODNEY
[2019-01-23 03:12] VITALS: BP 128/68
[2019-01-23 07:00] VITALS: BP 110/67
[2019-01-23 08:26] LABS: CALCIUM 9.7 mg/dL (8.5-10.1); CREATININE 10.7 mg/dL (0.7-1.3); GFR 6.3; POTASSIUM 5.8 mmol/L (3.5-5.1)
[2019-01-23] MEDS: SEVELAMER CARBONATE 800 MG TABLET. PO SCH ×2 (09:12→13:16)
[2019-01-23] MEDS: CALCIUM CARBONATE 500 MG TAB.CHEW PO SCH ×2 (09:12→13:15)
[2019-01-23] MEDS: busPIRone 5 MG TABLET. PO SCH (09:13)
[2019-01-23] MEDS: SENNOSIDES/DOCUSATE 8.6/50MG TABLET. PO SCH (09:14)
[2019-01-23] MEDS: CHOLECALCIFEROL (VITAMIN D3) 5,000 UNIT CAPSULE PO SCH (09:14)
[2019-01-23] MEDS: MINERAL OIL/PETROLATUM TOPICAL CREAM 113GM JAR. TP SCH (09:14)
[2019-01-23] MEDS: QUEtiapine 25 MG TABLET. PO SCH ×2 (09:14→13:15)
[2019-01-23] MEDS: POLYETHYLENE GLYCOL 3350 17 GM PACKET. PO SCH (09:15)
[2019-01-23] MEDS: CLOPIDOGREL BISULFATE 75 MG TABLET PO SCH (09:15)
--- NOTE | 2019-01-23 10:50 | PDOC ---
Infectious Disease Note Subjective: Subjective Pt denies any complaints no f/c/n/v/d/abdo pain/flank pain ROS: ROS Negative except for above. Vital Signs: Vital Signs Vital Signs Date Time Temp Pulse Resp B/P (MAP) Pulse Ox O2 Delivery O2 Flow Rate FiO2 01/23/19 09:24 66 110/67 01/23/19 08:00 Room Air 01/23/19 07:00 98.0 20 94 98.0 Physical Exam: PHYSICAL EXAM GENERAL: Alert, oriented x 3 male lying in dialysis unit, in no acute distress, cooperative. HEENT: Normocephalic, atraumatic, anicteric. No thrush. Oral mucosa moist. NECK: Supple. No JVD. LUNGS: Clear bilaterally. No wheezing. ABDOMEN: Mildly distended, soft, nontender. No rebound, no guarding. Bowel sounds present. NEUROLOGIC: Alert, awake, responds appropriately. Left-sided hemiparesis, chronic changes. DERM: Warm, dry, no generalized rash. EXTREMITIES: AV fistula site looks okay. Medications: Inpatient Meds: Current Medications Medications (Trade) Dose Ordered Sig/Jone Start Time Stop Time Status Last Admin Dose Admin Acetaminophen (Tylenol) 650 mg PRN Q4HRS PRN 01/20/19 18:00 Albuterol Sulfate (Ventolin Neb Soln) 10 mg 1X ONCE 01/20/19 14:45 01/20/19 14:51 DC 01/20/19 15:08 10 MG Bisacodyl (Dulcolax Supp) 10 mg PRN DAILY PRN 01/20/19 18:15 Buspirone HCl (Buspar) 5 mg BID 01/20/19 21:00 01/23/19 09:13 5 MG Calcium Carbonate/ Glycine (Oscal) 500 mg PRN Q4HRS PRN 01/20/19 18:00 01/21/19 23:23 DC Calcium Carbonate/ Glycine (Tums) 1,500 mg TIDAC 01/22/19 07:30 01/23/19 09:12 1,500 MG Calcium Gluconate (Calcium Gluconate) 1,000 mg 1X ONCE 01/20/19 14:45 01/20/19 14:51 DC 01/20/19 15:49 1,000 MG Clonidine HCl (Catapres Tts-3) 1 patch WEEKLY 01/21/19 09:00 01/21/19 08:18 1 PATCH Clonidine HCl (Catapres) 0.2 mg PRN Q12HR PRN 01/20/19 18:00 01/21/19 22:44 0.2 MG Clopidogrel Bisulfate (Plavix) 75 mg DAILY 01/21/19 09:00 01/23/19 09:15 75 MG Dextrose (Dextrose 50%-Water Syringe) 25 gm 1X ONCE 01/20/19 14:45 01/20/19 14:51 DC 01/20/19 15:49 25 GM Docusate Sodium (Colace) 100 mg PRN BID PRN 01/20/19 18:00 Famotidine (Pepcid) 10 mg DAILY10 01/21/19 10:00 01/22/19 13:54 10 MG Fentanyl Citrate (Fentanyl 2ml Vial) 50 mcg 1X ONCE 01/20/19 13:15 01/20/19 13:16 DC 01/20/19 13:14 50 MCG Hydralazine HCl (Apresoline) 50 mg TID 01/20/19 19:00 01/23/19 09:13 50 MG Hydroxyzine Pamoate (Vistaril) 50 mg QTUTHSA 01/22/19 16:00 01/22/19 16:40 50 MG Info (PHARMACY MONITORING -- do not chart) 1 each PRN DAILY PRN 01/22/19 07:45 Insulin Human Regular (HumuLIN R VIAL) 10 unit 1X ONCE 01/20/19 14:45 01/20/19 14:51 DC 01/20/19 15:50 10 UNIT Lidocaine HCl (Lidocaine 1% 20ml Vial) 20 ml 1X ONCE 01/22/19 07:45 01/22/19 07:46 DC 01/22/19 08:35 20 ML Metoprolol Tartrate (Lopressor) 100 mg BID 01/20/19 21:00 01/22/19 21:14 100 MG Morphine Sulfate (Morphine Sulfate) 2 mg PRN Q2HR PRN 01/20/19 17:30 01/21/19 17:29 DC 01/21/19 16:42 2 MG Multi-Ingred Cream/Lotion/Oil/ Oint (Hydrocerin Cream) 1 lakia BID 01/20/19 21:00 01/23/19 09:14 1 LAKIA Nifedipine (Procardia Xl) 60 mg BID 01/20/19 21:00 01/23/19 09:24 60 MG Nitroglycerin (Nitrostat) 0.4 mg PRN Q5MIN PRN 01/20/19 18:00 Non-Formulary Medication (Menthol (Biofreeze)) 118 ml PRN Q4HRS PRN 01/20/19 18:00 UNV Non-Formulary Medication (Nifedipine (Procardia Xl)) 1 tab BID 01/20/19 21:00 01/20/19 21:00 DC Ondansetron HCl (Zofran Odt) 4 mg PRN Q4HRS PRN 01/20/19 18:00 01/22/19 10:16 4 MG Ondansetron HCl (Zofran) 4 mg PRN Q8HRS PRN 01/20/19 17:30 01/21/19 17:29 DC Oxycodone HCl (Roxicodone) 5 mg PRN Q4HRS PRN 01/20/19 18:00 01/22/19 17:52 5 MG Polyethylene Glycol (miraLAX PACKET) 17 gm DAILY 01/21/19 09:00 01/23/19 09:15 17 GM Quetiapine Fumarate (SEROquel) 50 mg QHS 01/20/19 21:00 01/22/19 21:15 50 MG Senna/Docusate Sodium (Senna Plus) 1 tab BID 01/20/19 21:00 01/23/19 09:14 1 TAB Sevelamer Carbonate (Renvela) 2,400 mg TIDWMEALS 01/20/19 19:00 01/23/19 09:12 2,400 MG Sodium Chloride 1,000 ml @ 400 mls/hr Q2H30M PRN 01/22/19 07:34 01/22/19 19:33 DC Trazodone HCl (Desyrel) 50 mg QHS 01/20/19 21:00 01/22/19 21:14 50 MG Vitamin B Complex (Mitul B) 1 tab DAILYWSUP 01/20/19 21:00 01/22/19 16:40 1 TAB Vitamin D (Vitamin D3) 5,000 unit DAILY 01/21/19 09:00 01/23/19 09:14 5,000 UNIT Labs: Lab Laboratory Tests Test 01/22/19 12:27 01/23/19 06:45 01/23/19 07:09 Glucose (Fingerstick) 102 mg/dL (70-99) 95 mg/dL (70-99) Sodium Level 136 mmol/L (136-145) Potassium Level 5.8 mmol/L (3.5-5.1) Chloride Level 96 mmol/L (98-107) Carbon Dioxide Level 30 mmol/L (21-32) Anion Gap 10 (6-14) Blood Urea Nitrogen 42 mg/dL (8-26) Creatinine 10.7 mg/dL (0.7-1.3) Estimated GFR (Cockcroft-Gault) 6.3 Glucose Level 92 mg/dL (70-99) Calcium Level 9.7 mg/dL (8.5-10.1) Objective: Assessment: 1. Right flank pain with changes suggestive of possible pyelonephritis on CT on admission Resolved. The patient has been afebrile, normal white count with no left shift, likely noninfectious. 2. History of anxiety with nausea, vomiting episode once 01/22,resolved 3. History of gastroparesis. 4. End-stage renal disease, on hemodialysis. 5. Hyperkalemia. Plan: Plan of Care 1. Continue observation off antibiotics at this time. 2. If patient is able to provide urine, send for UA and urine culture. 3. If patient develops fever, low threshold to start the patient on empiric antibiotics for pyelonephritis. 4. Maintain aspiration precaution. 5. Follow up labs in a.m. and cultures. 6. Continue supportive care. D/W FAUSTO BATISTA MD Jan 23, 2019 10:50
[2019-01-23 11:00] VITALS: BP 108/63
--- NOTE | 2019-01-23 11:20 | SNU/HH DC ---
DISCHARGE ORDERS DISCHARGE INFORMATION: CONDITION ON DISCHARGE: Stable CODE STATUS: Code Status: Full FCI: SNF STAY <30 DAYS: No POST DISCHARGE ORDERS: ACTIVITY ORDERS: No restrictions, Resume previous activity WEIGHT BEARING STATUS: As tolerated DIET AFTER DISCHARGE: Renal WOUND/INCISION CARE: Ice to area for comfort CHECKS AFTER DISCHARGE: CHECKS AFTER DISCHARGE: Check blood press - daily, Weigh Yourself Daily TREATMENT/EQUIPMENT ORDERS: ADAPTIVE EQUIPMENT NEEDED: None, Walker RESPIRATORY EQUIPMENT NEEDED: Oxygen DISCHARGE MEDICATIONS: Home Meds Reported Medications Calcium Carbonate (TUMS) 300 Mg Tab.chew, 500 MG PO PRN Q4HRS PRN for INDIGESTION, TAB.CHEW 01/21/19 Calcium Carbonate (TUMS) 300 Mg Tab.chew, 1500 MG PO TIDAC for heartburn/ indigestion, TAB.CHEW 01/21/19 Nifedipine (PROCARDIA XL) 60 Mg Tab.er.24, 1 TAB PO BID for HTN, #90 TAB 1 Refill 01/20/19 Hydroxyzine Pamoate (VISTARIL) 50 Mg Capsule, 1 CAP PO QTUTHSA for PSYCHOSIS , # 90 CAP 2 Refills 01/20/19 Quetiapine Fumarate (SEROQUEL) 50 Mg Tablet, 1 TAB PO QHS for PSYCHOSIS , #30 TAB 2 Refills 01/20/19 Quetiapine Fumarate (SEROQUEL) 25 Mg Tablet, 25 MG PO TID for PSYCHOSIS, TAB 01/20/19 Sevelamer Carbonate (RENVELA) 800 Mg Tablet, 3 TAB PO TID for DILAYSIS, #810 TAB 3 Refills 01/20/19 Metoprolol Tartrate (METOPROLOL TARTRATE) 100 Mg Tablet, 1 TAB PO BID for HTN, # 60 TAB 5 Refills 01/20/19 Hydralazine Hcl (HYDRALAZINE HCL) 50 Mg Tablet, 1 TAB PO TID for HTN, #90 TAB 5 Refills 01/20/19 Clonidine (CLONIDINE TTS-3) 1 Each Patch.tdwk, 1 PATCH TD WEEKLY for HTN, PATCH 01/20/19 Buspirone Hcl (BUSPIRONE HCL) 5 Mg Tablet, 1 TAB PO BID for ANXIETY, #60 TAB 2 Refills 01/20/19 Mineral Oil/I-Prop Myr/Water (Hydrocerin Lotion) 472 Ml Lotion, 472 ML TP BID, MISC Appy to dry areas 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 05/01/18 Docusate Sodium (DOCUSATE SODIUM) 100 Mg Capsule, 100 MG PO PRN BID PRN for CONSTIPATION, CAP 05/01/18 Clonidine Hcl (CLONIDINE HCL) 0.2 Mg Tablet, 0.2 MG PO PRN Q12HR PRN for HYPERTENSION, SEE COMMENTS, TAB for SBP >150 05/01/18 Bisacodyl (BISACODYL) 10 Mg Supp.rect, 10 MG RC PRN DAILY PRN for CONSTIPATION, SUPP.RECT 0 Refills 05/01/18 Menthol (BIOFREEZE) 118 Ml Gel..ml., 118 ML TP PRN Q4HRS PRN for PAIN, EACH Apply to shoulders 05/01/18 Vitamin B Complex (B COMPLEX) 1 Each Tablet, 1 EACH PO DAILYWSUP, TAB 05/01/18 Ondansetron (ZOFRAN ODT) 4 Mg Tab.rapdis, 4 MG PO PRN Q4HRS PRN for NAUSEA/ VOMITING, TAB 05/01/18 Sennosides/Docusate Sodium (SENNA S TABLET) 1 Each Tablet, 1 EACH PO BID, TAB 02/23/18 Oxycodone Hcl (OXYCODONE HCL IMMED.RELEASE ) 5 Mg Tablet, 1 TAB PO PRN Q4HRS PRN for PAIN, #120 TAB 02/23/18 Nitroglycerin (NITROGLYCERIN SubLingual) 0.4 Mg Tab.subl, 0.4 MG SL PRN Q5MIN PRN for CHEST PAIN, BOTTLE 02/23/18 Polyethylene Glycol 3350 (MIRALAX) 17 Gm Powd.pack, 1 PACKET PO DAILY, #30 PACKET 3 Refills 02/23/18 Acetaminophen (TYLENOL) 325 Mg Tablet, 1-2 TAB PO PRN Q4HRS PRN for PAIN, #60 TAB 2 Refills 01/28/18 Clopidogrel Bisulfate (CLOPIDOGREL) 75 Mg Tablet, 1 TAB PO DAILY, #90 TAB 1 Refill 01/28/18 Famotidine (FAMOTIDINE) 20 Mg Tablet, 20 MG PO DAILY10, TAB 01/28/18 Trazodone Hcl (TRAZODONE HCL) 50 Mg Tablet, 1 TAB PO QHS for INSOMNIA, #30 TAB 1 Refill 01/28/18 Cholecalciferol (Vitamin D3) (VITAMIN D3) 5,000 Unit Tablet, 5000 UNIT PO DAILY , TAB 01/07/18 Discontinued Reported Medications Calcium Carbonate (CALCIUM CARBONATE) 500 Mg Tablet, 500 MG PO PRN Q4HRS PRN for DYSPEPSIA, TAB 05/01/18 Calcium Carbonate (CALCIUM CARBONATE) 500 Mg Tablet, 1500 MG PO TIDAC, TAB 05/01/18 Lidocaine/Prilocaine (LIDOCAINE-PRILOCAINE CREAM) 30 Gm Cream..g., 1 MARLENE TP PRN PRN for PAIN, #30 GM 1 Refill Apply to fistula topically one time a day every Mon, Mon, Sat-Wrap fistula in plastic wrap after applying medication 05/01/18 Lactobacillus Acidophilus (PROBIOTIC) 1 Each Capsule, 1 EACH PO BID, CAP 05/01/18 Ferrous Sulfate (FERROUS SULFATE) 325 Mg Tablet, 325 MG PO BID, TAB 05/01/18 Diazepam (DIAZEPAM) 5 Mg Tablet, 2.5 MG PO PRN TID PRN for ANXIETY / AGITATION, TAB 05/01/18 Methyl Salicylate/Menthol (SALONPAS PATCH) 1 Each Adh..patch, 1 EACH TP DAILY, PATCH 05/01/18 Nifedipine (PROCARDIA XL) 30 Mg Tab.er.24, 1 TAB PO BID, #30 TAB 5 Refills 02/23/18 Metoprolol Tartrate (METOPROLOL TARTRATE) 25 Mg Tablet, 1 TAB PO BID, #180 TAB 1 Refill 02/05/18 Quetiapine Fumarate (SEROQUEL) 25 Mg Tablet, 12.5 MG PO Q4HRS for PSYCHOSIS, # 30 TAB 2 Refills 01/28/18 SHIRLEY POOLE MD Jan 23, 2019 11:20
[2019-01-23] MEDS ORDERED: LACTULOSE 20 GM/30 ML SOLUTION. PO PRN (11:30)
[2019-01-23] MEDS ORDERED: ONDANSETRON PF 4 MG/2 ML VIAL. IV PRN (11:30)
[2019-01-23] MEDS ORDERED: fentaNYL PF VIAL 100 MCG/2 ML VIAL IV PRN (11:30)
[2019-01-23] MEDS ORDERED: SODIUM POLYSTYRENE SULFONATE 15 GM/60 ML ORAL.SUSP. PO ONE (11:45)
[2019-01-23] MEDS: FAMOTIDINE 20 MG TABLET. PO SCH (13:17)
[2019-01-23 13:19] VITALS: BP 108/63
[2019-01-23] MEDS: METOPROLOL TART IMMED RELEASE 50 MG TABLET. PO SCH (13:19)
--- NOTE | 2019-01-23 14:55 | PDOC ---
Renal-Progress Notes Subjective Notes Notes FEELING BETTER History of Present Illness Hx of present illness STABLE Vitals Vitals Vital Signs Date Time Temp Pulse Resp B/P (MAP) Pulse Ox O2 Delivery O2 Flow Rate FiO2 01/23/19 13:19 71 108/63 01/23/19 11:00 98.0 20 96 Room Air 98.0 Weight Weight [ ] I.O. Intake and Output Intake and Output 01/23/19 07:00 Intake Total 736 ml Output Total 0 ml Balance 736 ml Intake Oral 736 ml Output Urine Total 0 ml Labs Labs Laboratory Tests Test 01/23/19 06:45 01/23/19 07:09 01/23/19 10:50 Sodium Level 136 mmol/L (136-145) Potassium Level 5.8 mmol/L (3.5-5.1) Chloride Level 96 mmol/L (98-107) Carbon Dioxide Level 30 mmol/L (21-32) Anion Gap 10 (6-14) Blood Urea Nitrogen 42 mg/dL (8-26) Creatinine 10.7 mg/dL (0.7-1.3) Estimated GFR (Cockcroft-Gault) 6.3 Glucose Level 92 mg/dL (70-99) Calcium Level 9.7 mg/dL (8.5-10.1) Glucose (Fingerstick) 95 mg/dL (70-99) 119 mg/dL (70-99) Review of Systems Constitutional: yes: alert, oriented Ears/Nose/Throat: Yes: no symptom reported Eyes: Yes: no symptom reported Pulmonary: Yes no symptom reported Cardiovascular: Yes no symptom reported Genitourinary: Yes: no symptom reported Musculoskeletal: Yes: no symptom reported Skin: Yes no symptom reported Psychiatric/Neurological: Yes: no symptom reported Endocrine: Yes: no symptom reported Physical Exam General Appearance: no apparent distress Skin: warm Heart: S1S2 Abdomen: soft, bowel sounds present Genitourinary: bladder flat Extremities: pulses present Neurology: alert Musculoskeletal: Osteoarthritis, Other Assessment Assessment IMP ESRD ANEMIA LEFT ARM AVF PAIN-MOSTLY RESOLVED RIGHT FLANK PAIN-RESOLVED HYPERKALEMIA DM II HTN PLAN HD TOMORROW OP KAYEXALATE TODAY OK TO D/C MARLYS HAGEN MD Jan 23, 2019 14:55
--- NOTE | 2019-01-23 18:56 | DS ---
DATE OF DISCHARGE: 01/23/2019 HOSPITAL COURSE: The patient is a 48-year-old male patient, a resident at [facility] who was brought to the Emergency Room of [facility] from hemodialysis as he complaining of right flank pain. He apparently was dialyzed for a short period of time on Monday as he was complaining of severe pain in his left arteriovenous fistula and cramping in both lower extremities and was started complaining of pain in his right flank area and therefore, he was brought to the Emergency Room for further evaluation and treatment. His blood pressure was extremely high on arrival to the Emergency Room. His lab work showed no leukocytosis. Potassium was slightly elevated at 5.5 and all his enzymes including amylase and lipase were normal. He did have a CT scan of the abdomen and pelvis, which basically showed that the patient has perinephric stranding bilaterally, greater on the right. No hydronephrosis, hydroureter, no radiopaque collecting system calculi. Large quantity of stool in the colon is present. No extraluminal gas or bowel obstruction. Appendix is normal. The CT scan finding may represent pyelonephritis, recent passage of the calculus or other inflammatory process. The patient was seen by the artist representative and was dialyzed and his pain has actually slightly improved. Given the possibility of pyelonephritis, we consulted the Infectious Disease specialist and she did not recommend starting antibiotic, to observe him off antibiotics. He remained afebrile, hemodynamically stable. His pain has largely subsided. When I saw him today, he expressed his desire to go back to [facility]. PHYSICAL EXAMINATION: GENERAL: When I examined him, he looked slightly pale, not jaundiced, cyanosed, or thyromegaly. No jugular venous distension. No limb edema. VITAL SIGNS: His heart rate was 66, blood pressure was 110/67, temperature was 98, respiratory rate was 20, and oxygen saturation was 94%. HEAD, EYES, EARS, NOSE AND THROAT: Showed normocephalic, atraumatic. NECK: Supple. HEART: Showed normal first and second heart sounds. No gallop, rub or murmur. CHEST: Clear to auscultation. No crepitation or rhonchi. ABDOMEN: Distended, soft, nontender. No guarding or rigidity. No organomegaly. All hernial orifices intact. Bowel sounds normal. NEUROLOGIC: He was awake, alert, responding appropriately, is known to have left-sided hemiplegia. He is mostly bedbound, chair bound. He is completely anuric and hemodialysis dependent. LABORATORY DATA: As of this morning showed a serum sodium of 136, potassium 5.8, chloride 96, bicarbonate 30, anion gap of 10, BUN 42, creatinine 10.7, estimated GFR was 63 mL per minute. His glucose was 92, calcium was 9.7. His white cell count was 5200, hemoglobin 11.5, hematocrit 35, MCV 91, and platelet count of 148,000. Sedimentation rate was 28 and C-reactive protein was 15.3. DISCHARGE MEDICATIONS: He was discharged back to [facility] to continue on his medication including acetaminophen 650 mg every 4 hours as needed; bisacodyl 10 mg rectally daily p.r.n. for constipation; buspirone 5 mg twice a day; calcium carbonate (Tums) 1500 mg 3 times a day for heartburn, indigestion; calcium carbonate 500 mg every 4 hours; cholecalciferol 5000 International Units once a day; clonidine TTS patch once a week for hypertension; Plavix 75 mg once a day; docusate sodium 100 mg twice a day; hydralazine 50 mg 3 times a day; hydroxyzine pamoate 50 mg on Monday, , Monday; Biofreeze applied topically every 4 hours; metoprolol tartrate 100 mg twice a day; mineral oil/Hydrocerin lotion applied topically twice a day; nifedipine (Procardia XL) 60 mg twice a day; nitroglycerin 0.4 mg sublingually every 5 minutes as needed x 3; ondansetron (Zofran) 4 mg every 4 hours; oxycodone immediate release 5 mg every 4 hours; polyethylene glycol 17 grams daily p.r.n. for constipation; quetiapine fumarate 25 mg 3 times a day; quetiapine fumarate 50 mg at bedtime; Senna-S 1 tablet twice a day; sevelamer (Renvela) 800 mg 3 tablets 3 times a day with food; trazodone 50 mg once a day; vitamin B complex 1 tablet once a day. FINAL DISCHARGE DIAGNOSES: Right flank pain, possibilities include passage of stone as there is no evidence that the patient clinically has pyelonephritis, is afebrile, hemodynamically stable with normal white cell count; end-stage renal disease, on hemodialysis on Monday, , Monday; hypertension; right-sided cerebral aneurysm rupture with left-sided hemiplegia. SHIRLEY POOLE MD DR: JOSE ALBERTO/ritesh JOB#: [id number] / [id number]
== END 2019-01-23 15:30 | disposition home or self-care (01) | DRG 640 ==
LOC: ER 12:22 → 2 NORTH 16:15 → 6 SOUTH 01-21 15:59
PROVIDERS: ADMIT Internal Medicine; ATTEND Internal Medicine
PROC: 5A1D70Z Performance of Urinary Filtration, Intermittent, Less than 6 Hours Per Day (ICD-10-PCS; principal; 2019-01-22)
DX: E87.5 Hyperkalemia (principal); N18.6 End stage renal disease; N12 Tubulo-interstitial nephritis, not specified as acute or chronic; I13.2 Hypertensive heart and chronic kidney disease with heart failure and with stage 5 chronic kidney disease, or end stage renal disease; I69.154 Hemiplegia and hemiparesis following nontraumatic intracerebral hemorrhage affecting left non-dominant side; I50.9 Heart failure, unspecified; E21.3 Hyperparathyroidism, unspecified; F41.9 Anxiety disorder, unspecified; M19.90 Unspecified osteoarthritis, unspecified site; D63.1 Anemia in chronic kidney disease; E11.22 Type 2 diabetes mellitus with diabetic chronic kidney disease; E11.43 Type 2 diabetes mellitus with diabetic autonomic (poly)neuropathy; F41.1 Generalized anxiety disorder; K31.84 Gastroparesis; K21.9 Gastro-esophageal reflux disease without esophagitis; Z82.49 Family history of ischemic heart disease and other diseases of the circulatory system; Z99.2 Dependence on renal dialysis; D64.9 Anemia, unspecified
CPT/HCPCS: 36415; 74176; 80048; 80053; 82150; 82962; 83690; 85025; 85027; 85651; 86140; 86706; 87340; 93005; 94644; 96374; 96375; J0610; J1815; J2270; J3010; J7042; J7613; Q0162; Q0177; 97530; 99285-25

== ENCOUNTER 2020-11-03 04:28 | Emergency (ER) | payer MEDICARE, OTHER ==
[~2020-11-03] VITALS: Ht 177.8 cm; Wt 82.0 kg
[~2020-11-03 04:28] MED LIST changes: +AMLO-187 PO; -AMLO10TA8 PO; -BISA10SU2 RC; +BISA10SU4 RC; +BUPR150T21 PO; -BUPR150T6 PO; +BUSP5TAB PO; +CALC300T5 PO; +CLON1PAT3 TD; +HYDR-2869 PO; +HYDR50CA PO; -LIDO30CR TP; +LIDO30CR2 TP; +METH1ADH TP; -METH1ADH7 TP; +METO100T7 PO; -PANT40TA3 PO; +PANT40TA77 PO; +QUET50TA5 PO
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
[2020-11-03] MEDS ORDERED: MORPHINE SULFATE 4 MG/ML VIAL. IV ONE (05:00)
[2020-11-03] MEDS ORDERED: MORPHINE SULFATE 4 MG/ML VIAL. IM ONE (06:00)
--- NOTE | 2020-11-03 06:05 | RAD ---
INDICATION: Reason: fall pain / Spl. Instructions: / History: COMPARISON: June 2018 TECHNIQUE: Axial CT images obtained through the head without intravenous contrast. One or more of the following individualized dose reduction techniques were utilized for this examinat ion: 1. Automated exposure control; 2. Adjustment of the mA and/or kV according to patient size; 3 . Use of iterative reconstruction technique. FINDINGS: No intracranial hemorrhage. No midline shift. Basal cisterns patents. Ventricles and sulci are globally prominent. No acute osseous abnormality. Orbits and paranasal sinuses unremarkable. Scattered foci of low attenuation within the white matter. There are some regions of encephalomalacia including near the vertex which could be from prior insult . IMPRESSION: 1. No acute intracranial hemorrhage. 2. Scattered regions of low attenuation within the white matter. Non-specific in nature but frequen tly secondary to chronic small vessel ischemic disease. 3. Prominence of ventricles and sulci which is frequently secondary to age related volume loss. Electronically signed by: Donovan Yung MD (11/03/2020 6:02 AM) [id number]
[2020-11-03 07:04] VITALS: BP 114/71
--- NOTE | 2020-11-03 07:37 | RAD ---
Examination: 1. Pelvis AP. 2. AP chest and left rib series 2 views. INDICATION: Fall and pain FINDINGS: Single view pelvis shows an intact pelvic ring with slight underpenetration of the right iliac wing. No fracture or dislocation is evident. The soft tissues are unremarkable. AP chest and left RIBS show no displaced fracture and no pneumothorax or hemothorax. The heart is upp er normal in size and mediastinum is not widened or shifted. Sutures in the right upper lung are pres ent consistent with previous partial right lung resection. Lungs otherwise are well aerated with no f ocal infiltrates. Included upper abdomen is unremarkable. IMPRESSION: 1. Negative pelvis. 2. Upper normal heart size with no acute traumatic findings in the chest shown. Electronically signed by: Enrique Trejo MD (11/03/2020 7:35 AM) [id number]
== END 2020-11-03 07:26 | disposition home or self-care (01) ==
LOC: ER 04:28
DX: S09.90XA Unspecified injury of head, initial encounter (principal); M25.512 Pain in left shoulder; R07.81 Pleurodynia; R10.2 Pelvic and perineal pain; I12.0 Hypertensive chronic kidney disease with stage 5 chronic kidney disease or end stage renal disease; N18.6 End stage renal disease; Z99.2 Dependence on renal dialysis; Z86.73 Personal history of transient ischemic attack (TIA), and cerebral infarction without residual deficits; Z87.891 Personal history of nicotine dependence; W18.09XA Striking against other object with subsequent fall, initial encounter; Y93.89 Activity, other specified; Y92.89 Other specified places as the place of occurrence of the external cause; Y99.8 Other external cause status
CPT/HCPCS: 70450; 71101; 72170; 96372; 99285; J2270

== ENCOUNTER 2020-11-07 02:33 | Emergency (ER) | payer MEDICARE, OTHER ==
[~2020-11-07] VITALS: Ht 177.8 cm; Wt 77.3 kg
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
[2020-11-07 05:32] LABS: BASO # 0.1 x10^3/uL (0.0-0.2); BASO % 1 % (0-3); EOS # 0.1 x10^3/uL (0.0-0.7); EOS % 1 % (0-3); HEMATOCRIT 33.9 % (39.0-53.0); HEMOGLOBIN 10.9 g/dL (13.0-17.5); LYMPH # 1.1 x10^3/uL (1.0-4.8); LYMPH % 11 % (24-48); MEAN CORPUSCULAR HEMOGLOBIN 28 pg (25-35); MEAN CORPUSCULAR HGB CONC 32 g/dL (31-37); MEAN CORPUSCULAR VOLUME 88 fL (79-100); MONO # 1.8 x10^3/uL (0.0-1.1); MONO % 18 % (0-9); NEUT # 6.9 x10^3/uL (1.8-7.7); NEUT % 70 % (31-73); PLATELET COUNT 148 x10^3/uL (140-400); RED BLOOD COUNT 3.84 x10^6/uL (4.30-5.70); RED CELL DISTRIBUTION WIDTH 18.9 % (11.5-14.5)
--- NOTE | 2020-11-07 05:43 | RAD ---
INDICATION: Reason: falls, pain / Spl. Instructions: / History: COMPARISON: November 03, 2020 TECHNIQUE: Axial CT images obtained through the head without intravenous contrast. One or more of the following individualized dose reduction techniques were utilized for this examinat ion: 1. Automated exposure control; 2. Adjustment of the mA and/or kV according to patient size; 3 . Use of iterative reconstruction technique. FINDINGS: No intracranial hemorrhage. No midline shift. Basal cisterns patents. Ventricles and sulci are globally prominent. No acute osseous abnormality. Orbits and paranasal sinuses unremarkable. Scattered foci of low attenuation within the white matter. Repeat demonstration of encephalomalacia near the cerebral vertex bilaterally IMPRESSION: 1. No acute intracranial hemorrhage. 2. Scattered regions of low attenuation within the white matter. Non-specific in nature but frequen tly secondary to chronic small vessel ischemic disease. 3. Prominence of ventricles and sulci which is frequently secondary to age related volume loss. Electronically signed by: Donovan Yung MD (11/07/2020 5:33 AM) [id number]
[2020-11-07 05:45] LABS: CREATININE 13.3 mg/dL (0.7-1.3); GFR 4.9; POTASSIUM 5.2 mmol/L (3.5-5.1)
[2020-11-07 06:07] VITALS: BP 120/61
--- NOTE | 2020-11-07 06:22 | RAD ---
INDICATION: Reason: falls, pain / Spl. Instructions: / History: . COMPARISON: November 03, 2019 chest x-ray and CT from January 2018 TECHNIQUE: Axial CT images obtained through the chest. One or more of the following individualized dose reduction techniques were utilized for this examinat ion: 1. Automated exposure control; 2. Adjustment of the mA and/or kV according to patient size; 3 . Use of iterative reconstruction technique. FINDINGS: Mild dependent opacities bilaterally. There is some cystic foci seen within the anterior lungs medially bilaterally. Could be from mild emp hysematous changes. Linear opacities could be from scarring or atelectasis. Limited assessment of the mediastinum secondary to lack of contrast. Nonspecific perinephric stranding at partially visualized upper abdomen. There are some prominent lymph nodes within the mediastinum. For example precarinal region measuring up to approximately 10 mm short axis. Calcific atherosclerosis. This includes of the aorta and coronary arteries. Prominent lymph nodes in the left axilla measuring up to 10 mm short axis. There is also some prominent lymph nodes at right axilla. Angulation of right anterior rib could be f rom old fracture. Apparent cortical step-off at the sternum. Mild scoliotic curvature of the spine with degenerative ch anges. IMPRESSION: * Mild probable atelectasis bilaterally as well as cystic changes of the lungs. * Calcific atherosclerosis. * Mildly enlarged mediastinal and left hilar lymph nodes. * Apparent cortical step-off at the sternum likely from motion artifact Electronically signed by: Donovan Yung MD (11/07/2020 6:12 AM) [id number]
== END 2020-11-07 09:04 | disposition home or self-care (01) ==
LOC: ER 02:33
DX: M54.5 Low back pain (principal); G89.29 Other chronic pain; R51.9 Headache, unspecified; G89.11 Acute pain due to trauma; I12.9 Hypertensive chronic kidney disease with stage 1 through stage 4 chronic kidney disease, or unspecified chronic kidney disease; N18.9 Chronic kidney disease, unspecified; Z86.73 Personal history of transient ischemic attack (TIA), and cerebral infarction without residual deficits; Z99.2 Dependence on renal dialysis; W18.39XA Other fall on same level, initial encounter; Y93.89 Activity, other specified; Y92.89 Other specified places as the place of occurrence of the external cause; Y99.8 Other external cause status
CPT/HCPCS: 36415; 70450; 71250; 80048; 85025; 99285-25

== ENCOUNTER 2020-11-09 17:46 | Inpatient (IN) | payer MEDICARE, OTHER ==
[~2020-11-09] VITALS: Ht 175.3 cm; Wt 77.3 kg
--- NOTE | 2020-11-09 18:56 | RAD ---
CT scan of the head without contrast 11/09/2020 Clinical History: Altered mental status. Technique: Unenhanced, contiguous, 5 mm axial sections were obtained through the head. One or more of the following individualized dose reduction techniques were utilized for this study: 1. Automated exposure control. 2. Adjustment of the mA and/or kV according to patient size. 3. Use of iterative reconstruction technique. Findings: Comparison study is dated 11/07/2020. Images from the study are degraded by patient motion. There is generalized parenchymal atrophy. Areas of decreased attenuation are seen within the perivent ricular and subcortical white matter of both cerebral hemispheres consistent with areas of small vess el ischemic disease. No acute parenchymal abnormality is seen. No extra-axial fluid collection is not ed. No skull fracture is seen. Impression: No acute intracranial abnormality is seen. Electronically signed by: Aldo Freeman MD (11/09/2020 6:54 PM) [id number]
--- NOTE | 2020-11-09 19:09 | RAD ---
EXAM: CHEST 1 VIEW History: Altered mental status COMPARISON: 05/01/18. TECHNIQUE: Single portable radiograph of the chest FINDINGS: The cardiac silhouette is unremarkable. The lungs are clear bilaterally. The costophrenic sulci are clear and well demarcated. IMPRESSION: No radiographic evidence of an acute cardiopulmonary process. Electronically signed by: Nick Rendon MD (11/09/2020 7:07 PM) [id number]
[2020-11-09 19:30] LABS: INFLUENZA A PATIENT NEGATIVE (NEGATIVE); INFLUENZA B PATIENT NEGATIVE (NEGATIVE)
[2020-11-09] MEDS ORDERED: ONDANSETRON PF 4 MG/2 ML VIAL. ONE (19:44)
[2020-11-09] MEDS ORDERED: ONDANSETRON PF 4 MG/2 ML VIAL. IVP ONE (19:45)
[2020-11-09 20:02] LABS: BASO # 0.1 x10^3/uL (0.0-0.2); BASO % 1 % (0-3); EOS # 0.1 x10^3/uL (0.0-0.7); EOS % 1 % (0-3); HEMATOCRIT 35.1 % (39.0-53.0); HEMOGLOBIN 11.4 g/dL (13.0-17.5); LYMPH # 1.2 x10^3/uL (1.0-4.8); LYMPH % 14 % (24-48); MEAN CORPUSCULAR HEMOGLOBIN 29 pg (25-35); MEAN CORPUSCULAR HGB CONC 33 g/dL (31-37); MEAN CORPUSCULAR VOLUME 88 fL (79-100); MONO # 1.6 x10^3/uL (0.0-1.1); MONO % 20 % (0-9); NEUT # 5.3 x10^3/uL (1.8-7.7); NEUT % 64 % (31-73); PLATELET COUNT 210 x10^3/uL (140-400); RED BLOOD COUNT 3.99 x10^6/uL (4.30-5.70); RED CELL DISTRIBUTION WIDTH 18.7 % (11.5-14.5); WHITE BLOOD COUNT 8.2 x10^3/uL (4.0-11.0)
[2020-11-09 20:12] LABS: CREATININE 15.4 mg/dL (0.7-1.3); GFR 4.1; POTASSIUM 5.1 mmol/L (3.5-5.1)
[2020-11-09 20:18] LABS: ALBUMIN 3.8 g/dL (3.4-5.0); ALBUMIN/GLOBULIN RATIO 0.6 (1.0-1.7); MAGNESIUM 2.8 mg/dL (1.8-2.4); TOTAL BILIRUBIN 0.5 mg/dL (0.2-1.0); TOTAL PROTEIN 9.7 g/dL (6.4-8.2)
[2020-11-09 21:44] LABS: % LYMPHS 18 % (24-48); % MONOS 9 % (0-10); % SEGS 73 % (35-66); PLT ESTIMATE ADEQUATE (ADEQUATE)
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
[2020-11-09] MEDS ORDERED: ONDANSETRON PF 4 MG/2 ML VIAL. IV PRN (22:45)
[2020-11-09 23:00] VITALS: BP 121/85
[2020-11-09] MEDS: MORPHINE SULFATE 4 MG/ML VIAL. IV PRN (23:45)
[2020-11-09] MEDS ORDERED: BACL10TA PO (23:49)
[2020-11-09] MEDS ORDERED: AMLO-187 PO (23:49)
[2020-11-10] MEDS ORDERED: CLON0.1T PO (00:51)
[2020-11-10] MEDS ORDERED: ONDANSETRON PF 4 MG/2 ML VIAL. IVP PRN (01:00)
[2020-11-10] MEDS ORDERED: HYDROmorphone 2 MG/ML VIAL IVP PRN (01:00)
[2020-11-10] MEDS ORDERED: MORPHINE SULFATE 4 MG/ML VIAL. IV PRN (01:00)
--- NOTE | 2020-11-10 01:00 | NUR ---
The patient, LIV MONTANO, 50 y/o, M admitted by SHIRLEY POOLE MD, was given written information regarding hospital policies, unit procedures and contact persons. Valuables were checked and placed in closet. Pt. unable to stay awake to answer admission questions when he was first admitted at [facility]. 2230 11/09/20. Now he is trying to climb out of bed. Stating he is a spastic quadriplegic and is in pain. Dr. Poole notified. See orders. Home meds also restarted for morning. Pt. given dilaudid which did calm patient down. Will continue to monitor.
[2020-11-10] MEDS ORDERED: GUAI5SYR PO (01:10)
[2020-11-10] MEDS ORDERED: LOSA-73 PO (01:10)
[2020-11-10] MEDS ORDERED: HYDR100T24 PO (01:10)
[2020-11-10] MEDS ORDERED: OXYC5CAP PO (01:10)
[2020-11-10] MEDS ORDERED: CLOP75TA PO (01:10)
[2020-11-10] MEDS ORDERED: PREG50CA91 PO ×2 (01:10)
[2020-11-10] MEDS ORDERED: DOCUSATE SODIUM 100 MG CAPSULE. PO PRN (01:45)
[2020-11-10] MEDS ORDERED: BISACODYL 10 MG SUPP.RECT. RC PRN (01:45)
[2020-11-10] MEDS ORDERED: NITROGLYCERIN SUBLINGUAL 0.4 MG BOTTLE OF 25. SL PRN (01:45)
[2020-11-10] MEDS ORDERED: guaiFENesin DM 200MG/20MG 10 ML SYRUP PO PRN (01:45)
[2020-11-10] MEDS ORDERED: ONDANSETRON ODT 4 MG TAB.RAPDIS. PO PRN (01:45)
[2020-11-10] MEDS ORDERED: ACETAMINOPHEN 325 MG TABLET. PO PRN (01:45)
[2020-11-10] MEDS ORDERED: METHYL SALICYLATE/MENTHOL TOPICAL CREAM 57GM TUBE. TP PRN (02:15)
[2020-11-10 02:57] VITALS: BP 125/86
[2020-11-10] MEDS: MORPHINE SULFATE 4 MG/ML VIAL. IV PRN (04:42)
[2020-11-10 07:14] VITALS: BP 136/67
[2020-11-10] MEDS: CALCIUM CARBONATE 500 MG TAB.CHEW PO SCH ×3 (07:30→16:04)
[2020-11-10] MEDS: SEVELAMER CARBONATE 800 MG TABLET. PO SCH ×3 (08:00→16:04)
[2020-11-10] MEDS: MINERAL OIL/PETROLATUM TOPICAL CREAM 113GM JAR. TP SCH ×2 (09:00→21:00)
[2020-11-10] MEDS ORDERED: PREGABALIN 25 MG CAPSULE PO SCH (09:00)
[2020-11-10] MEDS: busPIRone 5 MG TABLET. PO SCH ×2 (09:00→21:00)
[2020-11-10] MEDS: CHOLECALCIFEROL (VITAMIN D3) 5,000 UNIT CAPSULE PO SCH (09:00)
[2020-11-10] MEDS: CLOPIDOGREL BISULFATE 75 MG TABLET PO SCH (09:00)
[2020-11-10] MEDS ORDERED: NON FORMULARY ITEM (Hydralazine Hcl 1 TAB) PO SCH (09:00)
[2020-11-10] MEDS: LOSARTAN POTASSIUM 50 MG TABLET. PO SCH (09:00)
[2020-11-10] MEDS: cloNIDine HCL 0.1 MG TABLET PO SCH ×2 (09:00→21:00)
[2020-11-10] MEDS ORDERED: BACLOFEN 10 MG TABLET. PO SCH (09:00)
[2020-11-10] MEDS ORDERED: QUEtiapine 25 MG TABLET. PO SCH ×2 (09:00→21:00)
[2020-11-10] MEDS ORDERED: cloNIDine TTS-3 1 PATCH PATCH.TDWK TD SCH (09:00)
[2020-11-10] MEDS: SENNOSIDES/DOCUSATE 8.6/50MG TABLET. PO SCH ×2 (09:00→21:00)
[2020-11-10] MEDS: POLYETHYLENE GLYCOL 3350 17 GM PACKET. PO SCH (09:00)
[2020-11-10] MEDS: METOPROLOL TART IMMED RELEASE 50 MG TABLET. PO SCH ×2 (09:00→21:00)
[2020-11-10 09:47] LABS: BASO % 1 % (0-3); EOS % 1 % (0-3); HEMATOCRIT 34.2 % (39.0-53.0); LYMPH # 2.2 x10^3/uL (1.0-4.8); LYMPH % 25 % (24-48); MEAN CORPUSCULAR HEMOGLOBIN 28 pg (25-35); MEAN CORPUSCULAR HGB CONC 32 g/dL (31-37); MEAN CORPUSCULAR VOLUME 89 fL (79-100); MONO # 1.8 x10^3/uL (0.0-1.1); MONO % 20 % (0-9); NEUT # 4.8 x10^3/uL (1.8-7.7); NEUT % 54 % (31-73); PLATELET COUNT 217 x10^3/uL (140-400); RED BLOOD COUNT 3.87 x10^6/uL (4.30-5.70); WHITE BLOOD COUNT 8.8 x10^3/uL (4.0-11.0)
[2020-11-10] MEDS ORDERED: FAMOTIDINE 20 MG TABLET. PO SCH (10:00)
[2020-11-10 10:09] LABS: ALBUMIN 3.8 g/dL (3.4-5.0); ALBUMIN/GLOBULIN RATIO 0.8 (1.0-1.7); CALCIUM 9.5 mg/dL (8.5-10.1); GFR 3.7; POTASSIUM 5.7 mmol/L (3.5-5.1); TOTAL BILIRUBIN 0.5 mg/dL (0.2-1.0); TOTAL PROTEIN 8.6 g/dL (6.4-8.2)
[2020-11-10 11:22] VITALS: BP 136/67
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
[2020-11-10] MEDS ORDERED: DIALYSIS PATIENT. MC PRN ×2 (13:15)
[2020-11-10] MEDS ORDERED: IV NORMAL SALINE 1000ML BAG 1,000 ML IV PRN ×2 (13:15)
[2020-11-10] MEDS ORDERED: ALBUMIN HUMAN 25% 200 ML IV PRN (13:15)
--- NOTE | 2020-11-10 13:42 | PN ---
DATE: 11/10/2020 SUBJECTIVE: The patient was admitted yesterday through the Emergency Room of [facility] from [facility] with altered mental status and recurrent falls. He has fallen about 8 times since 11/01. His falls mostly happened at nighttime between midnight and 3:00 in the morning. Nursing staffs there were concerned about the possibility of seizures as he falls from the bed, although nursing staff has not witnessed any tonic-clonic seizures and he has not bitten his tongue. We did start him on Lyrica 25 mg twice a day during daytime and 50 mg at bedtime and as he was complaining of severe pain in his left side on both left upper and left lower extremities. He continued to complain of pain and his spasticity has dramatically increased. He normally is wheelchair bound and is able to actually stand and even walk few steps and he mentally was basically awake, alert, and oriented to time, place and person. When I examined him this morning, he was extremely confused. Apparently, he has severe pain last night and morphine was not helping the pain, so we gave him hydromorphone. He was very lethargic and has apneic episodes, so we gave him 400 mcg of Narcan. PHYSICAL EXAMINATION: GENERAL: When I examined him, he looked somewhat pale, but no jaundice, cyanosis or thyromegaly. No jugular venous distention. No limb edema. VITAL SIGNS: His heart rate was 87, blood pressure was 136/67, temperature was 96.8, respiratory rate was 19, and oxygen saturation was 92% on room air. HEAD, EYES, EARS, NOSE AND THROAT: Showed normocephalic, atraumatic. NECK: Supple. HEART: Normal first and second heart sounds. No gallop or murmur. CHEST: Clear to auscultation. No crepitation or rhonchi. ABDOMEN: Distended, soft, nontender. NEUROLOGIC: He was very confused, although he wakes up to painful stimulation. All his cranial nerves seem to be grossly intact. He has markedly increased spasticity as he moves almost in one piece while normally his left upper and left lower extremity are more spastic than the right upper and right lower extremity. Given increased rigidity and the fact that he was on Seroquel, I will check his serum CK to make sure he is not in neuroleptic malignant syndrome and his temperature is normal. I have already consulted the burning plant operator as well as the neurologist to assist with his management. He has very similar presentation exactly when he has his left arm arteriovenous graft infected at that time. SHIRLEY POOLE MD DR: JOSE ALBERTO/ritesh JOB#: [id number] / [id number]
--- NOTE | 2020-11-10 13:49 | NUR ---
gave narcan to this pt this morning because his breathing was depressed and Dr Jones wanted to wake him up a bit from the dilaudid that he was given. Held morning meds till was able to check his swallowing ability, however pt went to dialysis before I was able to check his swallowing ability, will have to wait till he is back to check swallow and give him his medications. Suleman Sidhu RN
[2020-11-10 15:00] VITALS: BP 162/87
[2020-11-10] MEDS: OLANZapine IM 10 MG VIAL. IM PRN ×2 (15:27→21:14)
--- NOTE | 2020-11-10 15:44 | PDOC2 ---
CONSULT Date of Consult Date of Consult DATE: 11/10/20 TIME: 15:34 Reason for Consult Reason for Consult: ESRD Referring Physician Referring Physician: ZULEMA Identification/Chief Complaint Chief Complaint FALLS, CONFUSION Source Source: Chart review History of Present Illness Reason for Visit: THIS IS A 50 YR OLD WITH A COMPLICATED MED HX. NOTED TO HAVE ESRD WITH NON COMPLIANCE. HAS HAD RECENT FALLS AT HIS REHAB FACILITY. ALSO CONCERNS OF SEIURE ACTIVITY. 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 ALSO HAS SPASTICITY. HAS ESRD DUE TO HTN. HAS OP HD ON MWF VIA HIS ARM AVG. PT UNABLE TO GIVE ANY HX. Past Medical History Cardiovascular: CHF, HTN, Other Pulmonary: Other CENTRAL NERVOUS SYSTEM: CVA GI: GERD, Other Heme/Onc: Anemia NOS Hepatobiliary: Cholelithiasis Psych: Other Musculoskeletal: Osteoarthritis, Other Rheumatologic: No pertinent hx Infectious disease: Other Renal/: Chronic renal failure Endocrine: Hyperparathyroidism Past Surgical History Past Surgical History: Other (AVG PLACEMENT, HX OF TDC. HX OF AVG RESECTION FOR INFECTION) Family History Family History: Hypertension Social History No ALCOHOL: none Drugs: None Lives: Retirement Current Problem List Problem List Problems Medical Problems: (1) Altered mental status Status: Acute (2) Frequent falls Status: Acute (3) Person under investigation for COVID-19 Status: Acute Current Medications Current Medications Current Medications Ondansetron HCl (Zofran) 4 mg 1X ONCE IVP ; Start 11/09/20 at 19:45; Stop 11/09/20 at 19:51; Status DC Ondansetron HCl (Zofran) 4 mg STK-MED ONCE .ROUTE ; Start 11/09/20 at 19:44; Stop 11/09/20 at 19:44; Status DC Ondansetron HCl (Zofran) 4 mg PRN Q8HRS PRN IV NAUSEA/VOMITING; Start 11/09/20 at 22:45; Stop 11/10/20 at 01:56; Status DC Morphine Sulfate (Morphine Sulfate) 4 mg PRN Q2HR PRN IV PAIN Last administered on 11/10/20at 04:42; Start 11/09/20 at 22:45; Stop 11/10/20 at 09:51; Status DC Hydromorphone HCl (Dilaudid) 2 mg PRN Q3HRS PRN IVP PAIN Last administered on 11/10/20at 01:27; Start 11/10/20 at 01:00; Stop 11/10/20 at 09:40; Status DC Morphine Sulfate (Morphine Sulfate) 4 mg PRN Q2HR PRN IV PAIN; Start 11/10/20 at 01:00; Stop 11/10/20 at 09:40; Status DC Ondansetron HCl (Zofran) 4 mg PRN Q6HRS PRN IVP NAUSEA/VOMITING; Start 11/10/20 at 01:00 Acetaminophen (Tylenol) 650 mg PRN Q4HRS PRN PO PAIN; Start 11/10/20 at 01:45 Amlodipine Besylate (Norvasc) 10 mg DAILY PO ; Start 11/10/20 at 09:00 Baclofen (Lioresal) 10 mg TID PO ; Start 11/10/20 at 09:00; Stop 11/10/20 at 09:51; Status DC Bisacodyl (Dulcolax Supp) 10 mg PRN DAILY PRN RC CONSTIPATION; Start 11/10/20 at 01:45 Buspirone HCl (Buspar) 5 mg BID PO ; Start 11/10/20 at 09:00 Clonidine HCl (Catapres Tts-3) 1 patch WEEKLY TD ; Start 11/10/20 at 09:00 Clonidine HCl (Catapres) 0.1 mg BID PO ; Start 11/10/20 at 09:00 Clopidogrel Bisulfate (Plavix) 75 mg DAILY PO ; Start 11/10/20 at 09:00 Docusate Sodium (Colace) 100 mg PRN BID PRN PO CONSTIPATION; Start 11/10/20 at 01:45 Famotidine (Pepcid) 20 mg DAILY10 PO ; Start 11/10/20 at 10:00 Guaifenesin (Robitussin Dm) 5 ml PRN Q6HRS PRN PO COUGH; Start 11/10/20 at 01:45 Hydralazine HCl (Apresoline) 50 mg TID PO ; Start 11/10/20 at 09:00; Stop 11/10/20 at 09:40; Status DC Losartan Potassium (Cozaar) 25 mg DAILY PO ; Start 11/10/20 at 09:00 Nitroglycerin (Nitrostat) 0.4 mg PRN Q5MIN PRN SL CHEST PAIN; Start 11/10/20 at 01:45 Ondansetron HCl (Zofran Odt) 4 mg PRN Q4HRS PRN PO NAUSEA/VOMITING; Start 11/10/20 at 01:45 Polyethylene Glycol (miraLAX PACKET) 17 gm DAILY PO ; Start 11/10/20 at 09:00 Pregabalin (Lyrica) 25 mg BID PO ; Start 11/10/20 at 09:00; Stop 11/10/20 at 09:40; Status DC Pregabalin (Lyrica) 50 mg HS PO ; Start 11/10/20 at 21:00; Stop 11/10/20 at 09:40; Status DC Quetiapine Fumarate (SEROquel) 25 mg TID PO ; Start 11/10/20 at 09:00; Stop 11/10/20 at 09:51; Status DC Senna/Docusate Sodium (Senna Plus) 1 tab BID PO ; Start 11/10/20 at 09:00 Sevelamer Carbonate (Renvela) 2,400 mg TIDWMEALS PO ; Start 11/10/20 at 08:00 Trazodone HCl (Desyrel) 50 mg QHS PO ; Start 11/10/20 at 21:00 Vitamin B Complex (Mitul B) 1 tab DAILYWSUP PO ; Start 11/10/20 at 17:00 Calcium Carbonate/ Glycine (Tums) 1,500 mg TIDAC PO ; Start 11/10/20 at 07:30 Vitamin D (Vitamin D3) 5,000 unit DAILY PO ; Start 11/10/20 at 09:00 Non-Formulary Medication (Hydralazine Hcl ) 1 tab TID PO ; Start 11/10/20 at 09:00; Status UNV Hydroxyzine HCl (Atarax) 50 mg QTUTHSA PO ; Start 11/10/20 at 16:00 Menthol/Methyl Salicylate (Bengay Greaseless Cream) 1 lakia PRN Q4HRS PRN TP PAIN; Start 11/10/20 at 02:15 Metoprolol Tartrate (Lopressor) 100 mg BID PO ; Start 11/10/20 at 09:00 Multi-Ingredient Ointment (Hydrocerin Cream) 1 lakia BID TP ; Start 11/10/20 at 09:00 Nifedipine (Procardia Xl) 60 mg BID PO ; Start 11/10/20 at 09:00; Stop 11/10/20 at 09:51; Status DC Oxycodone HCl (Roxicodone) 10 mg PRN Q6HRS PRN PO PAIN; Start 11/10/20 at 02:15 Quetiapine Fumarate (SEROquel) 50 mg QHS PO ; Start 11/10/20 at 21:00; Stop 11/10/20 at 09:51; Status DC Hydralazine HCl (Apresoline) 100 mg TID PO ; Start 11/10/20 at 09:45 Sodium Chloride 1,000 ml @ 1,000 mls/hr Q1H PRN IV hypotension; Start 11/10/20 at 13:15; Stop 11/10/20 at 19:14 Albumin Human 200 ml @ 200 mls/hr 1X PRN PRN IV Hypotension; Start 11/10/20 at 13:15; Stop 11/10/20 at 19:14 Sodium Chloride 1,000 ml @ 400 mls/hr Q2H30M PRN IV PATENCY; Start 11/10/20 at 13:15; Stop 11/11/20 at 01:14 Info (PHARMACY MONITORING -- do not chart) 1 each PRN DAILY PRN MC SEE COMMENTS; Start 11/10/20 at 13:15; Status UNV Info (PHARMACY MONITORING -- do not chart) 1 each PRN DAILY PRN MC SEE COMMENTS ; Start 11/10/20 at 13:15 Olanzapine (ZyPREXA IM) 2.5 mg PRN Q4HRS PRN IM agitation Last administered on 11/10/20at 15:27; Start 11/10/20 at 15:15 Active Scripts Active Reported Oxycodone Hcl 5 Mg Capsule 10 Mg PO PRN Q6HRS PRN Losartan Potassium 50 Mg Tablet 25 Mg PO DAILY Hydralazine Hcl 100 Mg Tablet 1 Tab PO TID Guaifenesin Dm Syrup (Guaifenesin/Dextromethorphan) 5 Ml Syrup 5 Ml PO PRN Q6HRS PRN Clonidine Hcl 0.1 Mg Tablet 0.1 Mg PO BID Baclofen 10 Mg Tablet 10 Mg PO TID Amlodipine Besylate 10 Mg Tablet 10 Mg PO DAILY Tums (Calcium Carbonate) 300 Mg Tab.chew 1,500 Mg PO TIDAC Vistaril (Hydroxyzine Pamoate) 50 Mg Capsule 1 Cap PO QTUTHSA Seroquel (Quetiapine Fumarate) 50 Mg Tablet 1 Tab PO QHS Seroquel (Quetiapine Fumarate) 25 Mg Tablet 25 Mg PO TID Renvela (Sevelamer Carbonate) 800 Mg Tablet 3 Tab PO TID Metoprolol Tartrate 100 Mg Tablet 1 Tab PO BID Clonidine Tts-3 (Clonidine) 1 Each Patch.tdwk 1 Patch TD WEEKLY Buspirone Hcl 5 Mg Tablet 1 Tab PO BID Hydrocerin Lotion (Mineral Oil/I-Prop Myr/Water) 472 Ml Lotion 472 Ml TP BID Appy to dry areas topically every day and instantizer operator for skin protectant Docusate Sodium 100 Mg Capsule 100 Mg PO PRN BID PRN Bisacodyl 10 Mg Supp.rect 10 Mg RC PRN DAILY PRN Biofreeze (Menthol) 118 Ml Gel..ml. 118 Ml TP PRN Q4HRS PRN Apply to shoulders B Complex (Vitamin B Complex) 1 Each Tablet 1 Each PO DAILYWSUP Zofran Odt (Ondansetron) 4 Mg Tab.rapdis 4 Mg PO PRN Q4HRS PRN Senna S Tablet (Sennosides/Docusate Sodium) 1 Each Tablet 1 Each PO BID NITROGLYCERIN SubLingual (Nitroglycerin) 0.4 Mg Tab.subl 0.4 Mg SL PRN Q5MIN PRN Miralax (Polyethylene Glycol 3350) 17 Gm Powd.pack 1 Packet PO DAILY Tylenol (Acetaminophen) 325 Mg Tablet 1-2 Tab PO PRN Q4HRS PRN Clopidogrel (Clopidogrel Bisulfate) 75 Mg Tablet 1 Tab PO DAILY Famotidine 20 Mg Tablet 20 Mg PO DAILY10 Trazodone Hcl 50 Mg Tablet 1 Tab PO QHS Vitamin D3 (Cholecalciferol (Vitamin D3)) 5,000 Unit Tablet 5,000 Unit PO DAILY Allergies Allergies: Coded Allergies: No Known Medication Allergies (Verified Allergy, Unknown, 04/06/18) ROS Review of System UNABLE TO OBTAIN Physical Exam General: Cooperative, No acute distress HEENT: Atraumatic, Other (DRY MUCOSA) Lungs: Clear to auscultation Heart: Regular rate Abdomen: Normal bowel sounds Extremities: No clubbing Neuro: Other (CONFUSED. LEFT SIDED PARALYSIS WITH SPASTICITY) Psych/Mental Status: Other (FLAT) MUSCULOSKELETAL: Other (STIFF CONTRACTURES LEFT SIDE) Vitals VITALS Vital Signs Date Time Temp Pulse Resp B/P (MAP) Pulse Ox O2 Delivery O2 Flow Rate FiO2 11/10/20 11:22 96.8 87 136/67 (90) 92 Room Air 96.8 11/10/20 07:14 19 Labs Labs Laboratory Tests Test 11/09/20 18:08 11/09/20 18:49 11/09/20 19:55 11/10/20 09:05 Lactic Acid Level 0.9 mmol/L (0.4-2.0) Influenza Type A Antigen Negative (NEGATIVE) Influenza Type B Antigen Negative (NEGATIVE) White Blood Count 8.2 x10^3/uL (4.0-11.0) 8.8 x10^3/uL (4.0-11.0) Red Blood Count 3.99 x10^6/uL (4.30-5.70) 3.87 x10^6/uL (4.30-5.70) Hemoglobin 11.4 g/dL (13.0-17.5) 11.0 g/dL (13.0-17.5) Hematocrit 35.1 % (39.0-53.0) 34.2 % (39.0-53.0) Mean Corpuscular Volume 88 fL (79-100) 89 fL (79-100) Mean Corpuscular Hemoglobin 29 pg (25-35) 28 pg (25-35) Mean Corpuscular Hemoglobin Concent 33 g/dL (31-37) 32 g/dL (31-37) Red Cell Distribution Width 18.7 % (11.5-14.5) 19.0 % (11.5-14.5) Platelet Count 210 x10^3/uL (140-400) 217 x10^3/uL (140-400) Neutrophils (%) (Auto) 64 % (31-73) 54 % (31-73) Lymphocytes (%) (Auto) 14 % (24-48) 25 % (24-48) Monocytes (%) (Auto) 20 % (0-9) 20 % (0-9) Eosinophils (%) (Auto) 1 % (0-3) 1 % (0-3) Basophils (%) (Auto) 1 % (0-3) 1 % (0-3) Neutrophils # (Auto) 5.3 x10^3/uL (1.8-7.7) 4.8 x10^3/uL (1.8-7.7) Lymphocytes # (Auto) 1.2 x10^3/uL (1.0-4.8) 2.2 x10^3/uL (1.0-4.8) Monocytes # (Auto) 1.6 x10^3/uL (0.0-1.1) 1.8 x10^3/uL (0.0-1.1) Eosinophils # (Auto) 0.1 x10^3/uL (0.0-0.7) 0.0 x10^3/uL (0.0-0.7) Basophils # (Auto) 0.1 x10^3/uL (0.0-0.2) 0.0 x10^3/uL (0.0-0.2) Segmented Neutrophils % 73 % (35-66) Lymphocytes % 18 % (24-48) Monocytes % 9 % (0-10) Platelet Estimate Adequate (ADEQUATE) Sodium Level 140 mmol/L (136-145) 144 mmol/L (136-145) Potassium Level 5.1 mmol/L (3.5-5.1) 5.7 mmol/L (3.5-5.1) Chloride Level 95 mmol/L (98-107) 95 mmol/L (98-107) Carbon Dioxide Level 30 mmol/L (21-32) 25 mmol/L (21-32) Anion Gap 15 (6-14) 24 (6-14) Blood Urea Nitrogen 86 mg/dL (8-26) 96 mg/dL (8-26) Creatinine 15.4 mg/dL (0.7-1.3) 17.0 mg/dL (0.7-1.3) Estimated GFR (Cockcroft-Gault) 4.1 3.7 BUN/Creatinine Ratio 6 (6-20) 6 (6-20) Glucose Level 96 mg/dL (70-99) 97 mg/dL (70-99) Calcium Level 10.0 mg/dL (8.5-10.1) 9.5 mg/dL (8.5-10.1) Magnesium Level 2.8 mg/dL (1.8-2.4) Total Bilirubin 0.5 mg/dL (0.2-1.0) 0.5 mg/dL (0.2-1.0) Aspartate Amino Transf (AST/SGOT) 14 U/L (15-37) 14 U/L (15-37) Alanine Aminotransferase (ALT/SGPT) 14 U/L (16-63) 14 U/L (16-63) Alkaline Phosphatase 93 U/L (46-116) 97 U/L (46-116) Troponin I Quantitative < 0.017 ng/mL (0.000-0.055) < 0.017 ng/mL (0.000-0.055) Total Protein 9.7 g/dL (6.4-8.2) 8.6 g/dL (6.4-8.2) Albumin 3.8 g/dL (3.4-5.0) 3.8 g/dL (3.4-5.0) Albumin/Globulin Ratio 0.6 (1.0-1.7) 0.8 (1.0-1.7) Procalcitonin 2.08 ng/mL (0.00-0.10) Creatine Kinase 168 U/L (39-308) Laboratory Tests Test 11/09/20 18:08 11/09/20 18:49 11/09/20 19:55 11/10/20 09:05 Lactic Acid Level 0.9 mmol/L (0.4-2.0) Influenza Type A Antigen Negative (NEGATIVE) Influenza Type B Antigen Negative (NEGATIVE) White Blood Count 8.2 x10^3/uL (4.0-11.0) 8.8 x10^3/uL (4.0-11.0) Red Blood Count 3.99 x10^6/uL (4.30-5.70) 3.87 x10^6/uL (4.30-5.70) Hemoglobin 11.4 g/dL (13.0-17.5) 11.0 g/dL (13.0-17.5) Hematocrit 35.1 % (39.0-53.0) 34.2 % (39.0-53.0) Mean Corpuscular Volume 88 fL (79-100) 89 fL (79-100) Mean Corpuscular Hemoglobin 29 pg (25-35) 28 pg (25-35) Mean Corpuscular Hemoglobin Concent 33 g/dL (31-37) 32 g/dL (31-37) Red Cell Distribution Width 18.7 % (11.5-14.5) 19.0 % (11.5-14.5) Platelet Count 210 x10^3/uL (140-400) 217 x10^3/uL (140-400) Neutrophils (%) (Auto) 64 % (31-73) 54 % (31-73) Lymphocytes (%) (Auto) 14 % (24-48) 25 % (24-48) Monocytes (%) (Auto) 20 % (0-9) 20 % (0-9) Eosinophils (%) (Auto) 1 % (0-3) 1 % (0-3) Basophils (%) (Auto) 1 % (0-3) 1 % (0-3) Neutrophils # (Auto) 5.3 x10^3/uL (1.8-7.7) 4.8 x10^3/uL (1.8-7.7) Lymphocytes # (Auto) 1.2 x10^3/uL (1.0-4.8) 2.2 x10^3/uL (1.0-4.8) Monocytes # (Auto) 1.6 x10^3/uL (0.0-1.1) 1.8 x10^3/uL (0.0-1.1) Eosinophils # (Auto) 0.1 x10^3/uL (0.0-0.7) 0.0 x10^3/uL (0.0-0.7) Basophils # (Auto) 0.1 x10^3/uL (0.0-0.2) 0.0 x10^3/uL (0.0-0.2) Segmented Neutrophils % 73 % (35-66) Lymphocytes % 18 % (24-48) Monocytes % 9 % (0-10) Platelet Estimate Adequate (ADEQUATE) Sodium Level 140 mmol/L (136-145) 144 mmol/L (136-145) Potassium Level 5.1 mmol/L (3.5-5.1) 5.7 mmol/L (3.5-5.1) Chloride Level 95 mmol/L (98-107) 95 mmol/L (98-107) Carbon Dioxide Level 30 mmol/L (21-32) 25 mmol/L (21-32) Anion Gap 15 (6-14) 24 (6-14) Blood Urea Nitrogen 86 mg/dL (8-26) 96 mg/dL (8-26) Creatinine 15.4 mg/dL (0.7-1.3) 17.0 mg/dL (0.7-1.3) Estimated GFR (Cockcroft-Gault) 4.1 3.7 BUN/Creatinine Ratio 6 (6-20) 6 (6-20) Glucose Level 96 mg/dL (70-99) 97 mg/dL (70-99) Calcium Level 10.0 mg/dL (8.5-10.1) 9.5 mg/dL (8.5-10.1) Magnesium Level 2.8 mg/dL (1.8-2.4) Total Bilirubin 0.5 mg/dL (0.2-1.0) 0.5 mg/dL (0.2-1.0) Aspartate Amino Transf (AST/SGOT) 14 U/L (15-37) 14 U/L (15-37) Alanine Aminotransferase (ALT/SGPT) 14 U/L (16-63) 14 U/L (16-63) Alkaline Phosphatase 93 U/L (46-116) 97 U/L (46-116) Troponin I Quantitative < 0.017 ng/mL (0.000-0.055) < 0.017 ng/mL (0.000-0.055) Total Protein 9.7 g/dL (6.4-8.2) 8.6 g/dL (6.4-8.2) Albumin 3.8 g/dL (3.4-5.0) 3.8 g/dL (3.4-5.0) Albumin/Globulin Ratio 0.6 (1.0-1.7) 0.8 (1.0-1.7) Procalcitonin 2.08 ng/mL (0.00-0.10) Creatine Kinase 168 U/L (39-308) Assessment/Plan Assessment/Plan IMP HYPERKALEMIA ESRD - MWF ANEMIA HTN ENCEPHALOPATY FALLS HX OF CVA PLAN [facility] NEEDED HD TODAY UF TO DW NEURO EVALUATION MARLYS HAGEN MD Nov 10, 2020 15:44
--- NOTE | 2020-11-10 15:53 | NUR ---
SEAMUS following for discharge planning. SEAMUS spoke with RN and reviewed chart. Pt currently on room air, NPO, IV pain medication, COVID pending. Pt resides in LTC at [facility]. Faxed clinicals to [facility]. Discharge plan is return to LTC when stable. SW following.
[2020-11-10] MEDS: hydrOXYzine 25 MG TABLET PO SCH (16:00)
[2020-11-10] MEDS: VITAMIN B COMPLEX TABLET. PO SCH (16:03)
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
[2020-11-10 19:00] VITALS: BP 156/90
[2020-11-10] MEDS ORDERED: PREGABALIN 50 MG CAPSULE PO SCH (21:00)
[2020-11-10] MEDS: traZODone 50 MG TABLET. PO SCH (21:00)
[2020-11-10 23:02] VITALS: BP 149/87
[2020-11-11] MEDS: OLANZapine IM 10 MG VIAL. IM PRN ×2 (02:12→07:39)
[2020-11-11 03:00] VITALS: BP 152/84
[2020-11-11] MEDS: CALCIUM CARBONATE 500 MG TAB.CHEW PO SCH ×3 (07:30→17:00)
--- NOTE | 2020-11-11 07:30 | NUR ---
Will cont the 1:1 sitter for pt safety
[2020-11-11] MEDS ORDERED: DIALYSIS PATIENT. MC PRN (07:45)
--- NOTE | 2020-11-11 07:52 | PN ---
DATE: 11/11/2020 SUBJECTIVE: The patient is resting flat in bed, in no apparent distress. He continued to be confused and somewhat restless. He continued to require 1:1 sitter. He was very agitated yesterday and they did only an hour and half of hemodialysis. We did start him on Zyprexa and that helped to calm him down. PHYSICAL EXAMINATION: GENERAL: When I examined him, he looked pale. No jaundice or cyanosis. No lymphadenopathy. No thyromegaly. No jugular venous distention. No lower limb edema. VITAL SIGNS: His heart rate was 87, blood pressure was 152/84, temperature was 98, respiratory rate 20, and oxygen saturation was 95% on 2 liters of oxygen. HEENT: Showed normocephalic, atraumatic. NECK: Supple. HEART: Normal first and second heart sounds. No gallop or murmur. CHEST: Showed central trachea, equal bilateral chest expansion, air entry, vesicular sounds. No crepitation or rhonchi. ABDOMEN: Distended, soft, nontender. NEUROLOGIC: He seemed to be more awake today and his rigidity is much less today. He continued to be confused. LABORATORY DATA: He has no lab work done and his influenza A and B were negative; however, his coronavirus by PCR is still pending at the time of this dictation. ASSESSMENT: 1. Altered mental status, that is improving. The patient also has extremely rigid yesterday, but seemed to be much better. 2. End-stage renal disease, on hemodialysis. He is scheduled for another session of hemodialysis today. I will consult the speech therapy as well as physical and occupational therapy and his procalcitonin is slightly elevated; however, he is afebrile, his white cell count is normal. If he did spike his temperature, we will obviously hernández culture him and start him on IV antibiotic. SHIRLEY POOLE MD DR: JOSE ALBERTO/ritesh JOB#: [id number] / [id number]
[2020-11-11] MEDS: SEVELAMER CARBONATE 800 MG TABLET. PO SCH ×3 (08:00→17:00)
--- NOTE | 2020-11-11 08:00 | NUR ---
Pt awake and answering questions but moving all around in the bed. Attempted to calm pt verbally. Dr Jones here. Vidhi SALAZAR as pt is headed to dialysis since dialysis was cut short yesterday due to restlessness. Ativan prn order rec'd. VSS. Pt has no IV at this time
[2020-11-11] MEDS: CHOLECALCIFEROL (VITAMIN D3) 5,000 UNIT CAPSULE PO SCH (09:00)
[2020-11-11] MEDS: MINERAL OIL/PETROLATUM TOPICAL CREAM 113GM JAR. TP SCH ×2 (09:00→21:00)
[2020-11-11] MEDS: POLYETHYLENE GLYCOL 3350 17 GM PACKET. PO SCH (09:00)
[2020-11-11] MEDS: FAMOTIDINE 20 MG TABLET. PO SCH (09:00)
[2020-11-11] MEDS: CLOPIDOGREL BISULFATE 75 MG TABLET PO SCH (09:00)
[2020-11-11] MEDS: LOSARTAN POTASSIUM 50 MG TABLET. PO SCH (09:00)
[2020-11-11] MEDS: cloNIDine HCL 0.1 MG TABLET PO SCH ×2 (09:00→20:29)
[2020-11-11 10:06] LABS: CALCIUM 9.5 mg/dL (8.5-10.1); GFR 3.7; POTASSIUM 5.4 mmol/L (3.5-5.1)
[2020-11-11 11:00] VITALS: BP 168/103
--- NOTE | 2020-11-11 11:19 | PDOC ---
PROGRESS NOTES Date of Service DATE: 11/11/20 TIME: 11:16 Assessment Problems Medical Problems: (1) Altered mental status Status: Acute (2) Frequent falls Status: Acute (3) Person under investigation for COVID-19 Status: Acute Metabolic encephalopathy, better His most recent medication change is the Lyrica, that might be at fault. Patient has chronic pain, also psychiatric disorder. 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 I'm not getting a flavor of any seizures, he simply getting up and falling out of bed in the middle of the night, no one has witnessed any convulsion, he has not bitten his tongue. Plan Continue as needed Zyprexa Hold off on repeating the EEG No need for MRI Discontinue Lyrica. Subjective No complaints Objective Vital Signs Date Time Temp Pulse Resp B/P (MAP) Pulse Ox O2 Delivery O2 Flow Rate FiO2 11/11/20 03:00 98.0 87 20 152/84 (106) 95 Nasal Cannula 2.0 98.0 Intake and Output 11/11/20 07:00 Intake Total 0 ml Balance 0 ml Intake Oral 0 ml PHYSICAL EXAM Alert. Oriented to "hospital" and person. PERRL. EOMI. CN: Left central facial weakness, otherwise no focal findings. Muscle tone: Increased on left Muscle strength: 3/5 hemiparesis on the left DTR: 2+ Plantar reflex: Flexor Gait: not examined in bed. Sensory exam: no abnormal findings. No cerebellar signs elicited. Review of Relevant I have reviewed the following items campbell (where applicable) has been applied. Labs Laboratory Tests Test 11/09/20 18:08 11/09/20 18:49 11/09/20 19:55 11/10/20 09:05 Lactic Acid Level 0.9 mmol/L (0.4-2.0) Influenza Type A Antigen Negative (NEGATIVE) Influenza Type B Antigen Negative (NEGATIVE) White Blood Count 8.2 x10^3/uL (4.0-11.0) 8.8 x10^3/uL (4.0-11.0) Red Blood Count 3.99 x10^6/uL (4.30-5.70) 3.87 x10^6/uL (4.30-5.70) Hemoglobin 11.4 g/dL (13.0-17.5) 11.0 g/dL (13.0-17.5) Hematocrit 35.1 % (39.0-53.0) 34.2 % (39.0-53.0) Mean Corpuscular Volume 88 fL (79-100) 89 fL (79-100) Mean Corpuscular Hemoglobin 29 pg (25-35) 28 pg (25-35) Mean Corpuscular Hemoglobin Concent 33 g/dL (31-37) 32 g/dL (31-37) Red Cell Distribution Width 18.7 % (11.5-14.5) 19.0 % (11.5-14.5) Platelet Count 210 x10^3/uL (140-400) 217 x10^3/uL (140-400) Neutrophils (%) (Auto) 64 % (31-73) 54 % (31-73) Lymphocytes (%) (Auto) 14 % (24-48) 25 % (24-48) Monocytes (%) (Auto) 20 % (0-9) 20 % (0-9) Eosinophils (%) (Auto) 1 % (0-3) 1 % (0-3) Basophils (%) (Auto) 1 % (0-3) 1 % (0-3) Neutrophils # (Auto) 5.3 x10^3/uL (1.8-7.7) 4.8 x10^3/uL (1.8-7.7) Lymphocytes # (Auto) 1.2 x10^3/uL (1.0-4.8) 2.2 x10^3/uL (1.0-4.8) Monocytes # (Auto) 1.6 x10^3/uL (0.0-1.1) 1.8 x10^3/uL (0.0-1.1) Eosinophils # (Auto) 0.1 x10^3/uL (0.0-0.7) 0.0 x10^3/uL (0.0-0.7) Basophils # (Auto) 0.1 x10^3/uL (0.0-0.2) 0.0 x10^3/uL (0.0-0.2) Segmented Neutrophils % 73 % (35-66) Lymphocytes % 18 % (24-48) Monocytes % 9 % (0-10) Platelet Estimate Adequate (ADEQUATE) Sodium Level 140 mmol/L (136-145) 144 mmol/L (136-145) Potassium Level 5.1 mmol/L (3.5-5.1) 5.7 mmol/L (3.5-5.1) Chloride Level 95 mmol/L (98-107) 95 mmol/L (98-107) Carbon Dioxide Level 30 mmol/L (21-32) 25 mmol/L (21-32) Anion Gap 15 (6-14) 24 (6-14) Blood Urea Nitrogen 86 mg/dL (8-26) 96 mg/dL (8-26) Creatinine 15.4 mg/dL (0.7-1.3) 17.0 mg/dL (0.7-1.3) Estimated GFR (Cockcroft-Gault) 4.1 3.7 BUN/Creatinine Ratio 6 (6-20) 6 (6-20) Glucose Level 96 mg/dL (70-99) 97 mg/dL (70-99) Calcium Level 10.0 mg/dL (8.5-10.1) 9.5 mg/dL (8.5-10.1) Magnesium Level 2.8 mg/dL (1.8-2.4) Total Bilirubin 0.5 mg/dL (0.2-1.0) 0.5 mg/dL (0.2-1.0) Aspartate Amino Transf (AST/SGOT) 14 U/L (15-37) 14 U/L (15-37) Alanine Aminotransferase (ALT/SGPT) 14 U/L (16-63) 14 U/L (16-63) Alkaline Phosphatase 93 U/L (46-116) 97 U/L (46-116) Troponin I Quantitative < 0.017 ng/mL (0.000-0.055) < 0.017 ng/mL (0.000-0.055) Total Protein 9.7 g/dL (6.4-8.2) 8.6 g/dL (6.4-8.2) Albumin 3.8 g/dL (3.4-5.0) 3.8 g/dL (3.4-5.0) Albumin/Globulin Ratio 0.6 (1.0-1.7) 0.8 (1.0-1.7) Procalcitonin 2.08 ng/mL (0.00-0.10) Creatine Kinase 168 U/L (39-308) Test 11/11/20 08:00 Sodium Level 142 mmol/L (136-145) Potassium Level 5.4 mmol/L (3.5-5.1) Chloride Level 97 mmol/L (98-107) Carbon Dioxide Level 24 mmol/L (21-32) Anion Gap 21 (6-14) Blood Urea Nitrogen 91 mg/dL (8-26) Creatinine 17.0 mg/dL (0.7-1.3) Estimated GFR (Cockcroft-Gault) 3.7 Glucose Level 72 mg/dL (70-99) Calcium Level 9.5 mg/dL (8.5-10.1) Laboratory Tests Test 11/11/20 08:00 Sodium Level 142 mmol/L (136-145) Potassium Level 5.4 mmol/L (3.5-5.1) Chloride Level 97 mmol/L (98-107) Carbon Dioxide Level 24 mmol/L (21-32) Anion Gap 21 (6-14) Blood Urea Nitrogen 91 mg/dL (8-26) Creatinine 17.0 mg/dL (0.7-1.3) Estimated GFR (Cockcroft-Gault) 3.7 Glucose Level 72 mg/dL (70-99) Calcium Level 9.5 mg/dL (8.5-10.1) Microbiology 11/09/20 Blood Culture - Preliminary, Resulted NO GROWTH AFTER 1 DAY Medications Current Medications Ondansetron HCl (Zofran) 4 mg 1X ONCE IVP ; Start 11/09/20 at 19:45; Stop 11/09/20 at 19:51; Status DC Ondansetron HCl (Zofran) 4 mg STK-MED ONCE .ROUTE ; Start 11/09/20 at 19:44; Stop 11/09/20 at 19:44; Status DC Ondansetron HCl (Zofran) 4 mg PRN Q8HRS PRN IV NAUSEA/VOMITING; Start 11/09/20 at 22:45; Stop 11/10/20 at 01:56; Status DC Morphine Sulfate (Morphine Sulfate) 4 mg PRN Q2HR PRN IV PAIN Last administered on 11/10/20at 04:42; Start 11/09/20 at 22:45; Stop 11/10/20 at 09:51; Status DC Hydromorphone HCl (Dilaudid) 2 mg PRN Q3HRS PRN IVP PAIN Last administered on 11/10/20at 01:27; Start 11/10/20 at 01:00; Stop 11/10/20 at 09:40; Status DC Morphine Sulfate (Morphine Sulfate) 4 mg PRN Q2HR PRN IV PAIN; Start 11/10/20 at 01:00; Stop 11/10/20 at 09:40; Status DC Ondansetron HCl (Zofran) 4 mg PRN Q6HRS PRN IVP NAUSEA/VOMITING; Start 11/10/20 at 01:00 Acetaminophen (Tylenol) 650 mg PRN Q4HRS PRN PO PAIN; Start 11/10/20 at 01:45 Amlodipine Besylate (Norvasc) 10 mg DAILY PO ; Start 11/10/20 at 09:00 Baclofen (Lioresal) 10 mg TID PO ; Start 11/10/20 at 09:00; Stop 11/10/20 at 09:51; Status DC Bisacodyl (Dulcolax Supp) 10 mg PRN DAILY PRN RC CONSTIPATION; Start 11/10/20 at 01:45 Buspirone HCl (Buspar) 5 mg BID PO ; Start 11/10/20 at 09:00 Clonidine HCl (Catapres Tts-3) 1 patch WEEKLY TD ; Start 11/10/20 at 09:00 Clonidine HCl (Catapres) 0.1 mg BID PO ; Start 11/10/20 at 09:00 Clopidogrel Bisulfate (Plavix) 75 mg DAILY PO ; Start 11/10/20 at 09:00 Docusate Sodium (Colace) 100 mg PRN BID PRN PO CONSTIPATION; Start 11/10/20 at 01:45 Famotidine (Pepcid) 20 mg DAILY10 PO ; Start 11/10/20 at 10:00; Stop 11/10/20 at 16:45; Status DC Guaifenesin (Robitussin Dm) 5 ml PRN Q6HRS PRN PO COUGH; Start 11/10/20 at 01:45 Hydralazine HCl (Apresoline) 50 mg TID PO ; Start 11/10/20 at 09:00; Stop 11/10/20 at 09:40; Status DC Losartan Potassium (Cozaar) 25 mg DAILY PO ; Start 11/10/20 at 09:00 Nitroglycerin (Nitrostat) 0.4 mg PRN Q5MIN PRN SL CHEST PAIN; Start 11/10/20 at 01:45 Ondansetron HCl (Zofran Odt) 4 mg PRN Q4HRS PRN PO NAUSEA/VOMITING; Start 11/10/20 at 01:45 Polyethylene Glycol (miraLAX PACKET) 17 gm DAILY PO ; Start 11/10/20 at 09:00 Pregabalin (Lyrica) 25 mg BID PO ; Start 11/10/20 at 09:00; Stop 11/10/20 at 09:40; Status DC Pregabalin (Lyrica) 50 mg HS PO ; Start 11/10/20 at 21:00; Stop 11/10/20 at 09:40; Status DC Quetiapine Fumarate (SEROquel) 25 mg TID PO ; Start 11/10/20 at 09:00; Stop 11/10/20 at 09:51; Status DC Senna/Docusate Sodium (Senna Plus) 1 tab BID PO ; Start 11/10/20 at 09:00 Sevelamer Carbonate (Renvela) 2,400 mg TIDWMEALS PO ; Start 11/10/20 at 08:00 Trazodone HCl (Desyrel) 50 mg QHS PO ; Start 11/10/20 at 21:00 Vitamin B Complex (Mtiul B) 1 tab DAILYWSUP PO ; Start 11/10/20 at 17:00 Calcium Carbonate/ Glycine (Tums) 1,500 mg TIDAC PO ; Start 11/10/20 at 07:30 Vitamin D (Vitamin D3) 5,000 unit DAILY PO ; Start 11/10/20 at 09:00 Non-Formulary Medication (Hydralazine Hcl ) 1 tab TID PO ; Start 11/10/20 at 09:00; Status UNV Hydroxyzine HCl (Atarax) 50 mg QTUTHSA PO ; Start 11/10/20 at 16:00 Menthol/Methyl Salicylate (Bengay Greaseless Cream) 1 lakia PRN Q4HRS PRN TP PAIN; Start 11/10/20 at 02:15 Metoprolol Tartrate (Lopressor) 100 mg BID PO ; Start 11/10/20 at 09:00 Multi-Ingredient Ointment (Hydrocerin Cream) 1 lakia BID TP ; Start 11/10/20 at 09:00 Nifedipine (Procardia Xl) 60 mg BID PO ; Start 11/10/20 at 09:00; Stop 11/10/20 at 09:51; Status DC Oxycodone HCl (Roxicodone) 10 mg PRN Q6HRS PRN PO PAIN; Start 11/10/20 at 02:15 Quetiapine Fumarate (SEROquel) 50 mg QHS PO ; Start 11/10/20 at 21:00; Stop 11/10/20 at 09:51; Status DC Hydralazine HCl (Apresoline) 100 mg TID PO ; Start 11/10/20 at 09:45 Sodium Chloride 1,000 ml @ 1,000 mls/hr Q1H PRN IV hypotension; Start 11/10/20 at 13:15; Stop 11/10/20 at 19:14; Status DC Albumin Human 200 ml @ 200 mls/hr 1X PRN PRN IV Hypotension; Start 11/10/20 at 13:15; Stop 11/10/20 at 19:14; Status DC Sodium Chloride 1,000 ml @ 400 mls/hr Q2H30M PRN IV PATENCY; Start 11/10/20 at 13:15; Stop 11/11/20 at 01:14; Status DC Info (PHARMACY MONITORING -- do not chart) 1 each PRN DAILY PRN MC SEE COMMENTS; Start 11/10/20 at 13:15; Status UNV Info (PHARMACY MONITORING -- do not chart) 1 each PRN DAILY PRN MC SEE COMMENTS; Start 11/10/20 at 13:15; Status Cancel Olanzapine (ZyPREXA IM) 2.5 mg PRN Q4HRS PRN IM agitation Last administered on 11/11/20at 07:39; Start 11/10/20 at 15:15 Famotidine (Pepcid) 20 mg Q48H PO ; Start 11/11/20 at 09:00 Info (PHARMACY MONITORING -- do not chart) 1 each PRN DAILY PRN MC SEE COMMENTS; Start 11/11/20 at 07:45 Lorazepam (Ativan Inj) 1 mg PRN Q4HRS PRN IVP ANXIETY / AGITATION; Start 11/11/20 at 08:00 Active Scripts Active Reported Oxycodone Hcl 5 Mg Capsule 10 Mg PO PRN Q6HRS PRN Losartan Potassium 50 Mg Tablet 25 Mg PO DAILY Hydralazine Hcl 100 Mg Tablet 1 Tab PO TID Guaifenesin Dm Syrup (Guaifenesin/Dextromethorphan) 5 Ml Syrup 5 Ml PO PRN Q6HRS PRN Clonidine Hcl 0.1 Mg Tablet 0.1 Mg PO BID Baclofen 10 Mg Tablet 10 Mg PO TID Amlodipine Besylate 10 Mg Tablet 10 Mg PO DAILY Tums (Calcium Carbonate) 300 Mg Tab.chew 1,500 Mg PO TIDAC Vistaril (Hydroxyzine Pamoate) 50 Mg Capsule 1 Cap PO QTUTHSA Seroquel (Quetiapine Fumarate) 50 Mg Tablet 1 Tab PO QHS Seroquel (Quetiapine Fumarate) 25 Mg Tablet 25 Mg PO TID Renvela (Sevelamer Carbonate) 800 Mg Tablet 3 Tab PO TID Metoprolol Tartrate 100 Mg Tablet 1 Tab PO BID Clonidine Tts-3 (Clonidine) 1 Each Patch.tdwk 1 Patch TD WEEKLY Buspirone Hcl 5 Mg Tablet 1 Tab PO BID Hydrocerin Lotion (Mineral Oil/I-Prop Myr/Water) 472 Ml Lotion 472 Ml TP BID Appy to dry areas topically every day and weight shifter for skin protectant Docusate Sodium 100 Mg Capsule 100 Mg PO PRN BID PRN Bisacodyl 10 Mg Supp.rect 10 Mg RC PRN DAILY PRN Biofreeze (Menthol) 118 Ml Gel..ml. 118 Ml TP PRN Q4HRS PRN Apply to shoulders B Complex (Vitamin B Complex) 1 Each Tablet 1 Each PO DAILYWSUP Zofran Odt (Ondansetron) 4 Mg Tab.rapdis 4 Mg PO PRN Q4HRS PRN Senna S Tablet (Sennosides/Docusate Sodium) 1 Each Tablet 1 Each PO BID NITROGLYCERIN SubLingual (Nitroglycerin) 0.4 Mg Tab.subl 0.4 Mg SL PRN Q5MIN PRN Miralax (Polyethylene Glycol 3350) 17 Gm Powd.pack 1 Packet PO DAILY Tylenol (Acetaminophen) 325 Mg Tablet 1-2 Tab PO PRN Q4HRS PRN Clopidogrel (Clopidogrel Bisulfate) 75 Mg Tablet 1 Tab PO DAILY Famotidine 20 Mg Tablet 20 Mg PO DAILY10 Trazodone Hcl 50 Mg Tablet 1 Tab PO QHS Vitamin D3 (Cholecalciferol (Vitamin D3)) 5,000 Unit Tablet 5,000 Unit PO DAILY Vitals/I & O Vital Sign - Last 24 Hours 11/10/20 11/10/20 11/10/20 11/10/20 11:22 14:00 15:00 19:00 Temp 96.8 99.1 98.8 96.8 99.1 98.8 Pulse 87 87 108 98 Resp 14 26 B/P (MAP) 136/67 (90) 136/67 162/87 (112) 156/90 (112) Pulse Ox 92 99 96 O2 Delivery Room Air Nasal Cannula Room Air O2 Flow Rate 2.0 11/10/20 11/10/20 11/10/20 11/10/20 20:00 21:00 21:00 21:00 Pulse 108 108 108 B/P (MAP) 162/87 162/87 162/87 O2 Delivery Room Air O2 Flow Rate 2.0 11/10/20 11/11/20 23:02 03:00 Temp 98.4 98.0 98.4 98.0 Pulse 96 87 Resp 24 20 B/P (MAP) 149/87 (107) 152/84 (106) Pulse Ox 95 95 O2 Delivery Nasal Cannula Nasal Cannula O2 Flow Rate 2.0 2.0 Intake and Output 11/10/20 11/10/20 11/11/20 15:00 23:00 07:00 Intake Total 0 ml 0 ml 0 ml Balance 0 ml 0 ml 0 ml Justicifation of Admission Dx: Justifications for Admission: Justification of Admission Dx: N/A ERIC MAXWELL MD Nov 11, 2020 11:19
--- NOTE | 2020-11-11 13:04 | NUR ---
bethany dialysis well. 3l off. VSS. awaiting swallow eval per ST. Pt impulsive but somewhat more cooperative, oral care done. PT worked with pt
[2020-11-11 15:00] VITALS: BP 168/103
[2020-11-11] MEDS: METOPROLOL TART IMMED RELEASE 50 MG TABLET. PO SCH ×2 (15:36→15:42)
[2020-11-11] MEDS: busPIRone 5 MG TABLET. PO SCH ×2 (15:37→15:42)
[2020-11-11] MEDS: SENNOSIDES/DOCUSATE 8.6/50MG TABLET. PO SCH ×2 (15:37→15:43)
--- NOTE | 2020-11-11 15:54 | NUR ---
Pt awake and fairly cooperative. Passed swallow eval per ST. Started on reg renal diet. Took meds that were offered him. snack taken. Pt denies discomfort. Still has nno IV. Will try again. Fluid restriction now in force. Christiane crooks'yesenia. Bed alarm on. Low bed ordered.
--- NOTE | 2020-11-11 16:37 | NUR ---
This RN will assume care of pt at this time. Report received from [facility].
[2020-11-11] MEDS: VITAMIN B COMPLEX TABLET. PO SCH (17:01)
--- NOTE | 2020-11-11 17:33 | NUR ---
SW following for discharge planning. SW spoke with RN and reviewed chart. Working to advance pt's diet. Discharge plan remains return to [facility] when stable. SW following.
--- NOTE | 2020-11-11 18:26 | PDOC ---
Renal-Progress Notes Subjective Notes Notes COOPERATIVE MORE TODAY, STILL HAS BASELINE CONFUSION. History of Present Illness Hx of present illness STABLE Vitals Vitals Vital Signs Date Time Temp Pulse Resp B/P (MAP) Pulse Ox O2 Delivery O2 Flow Rate FiO2 11/11/20 17:00 100 150/90 11/11/20 15:00 98.4 16 94 Room Air 98.4 11/11/20 08:00 2.0 Weight Weight [ ] I.O. Intake and Output Intake and Output 11/11/20 07:00 Intake Total 0 ml Balance 0 ml Intake Oral 0 ml Labs Labs Laboratory Tests Test 11/11/20 08:00 Sodium Level 142 mmol/L (136-145) Potassium Level 5.4 mmol/L (3.5-5.1) Chloride Level 97 mmol/L (98-107) Carbon Dioxide Level 24 mmol/L (21-32) Anion Gap 21 (6-14) Blood Urea Nitrogen 91 mg/dL (8-26) Creatinine 17.0 mg/dL (0.7-1.3) Estimated GFR (Cockcroft-Gault) 3.7 Glucose Level 72 mg/dL (70-99) Calcium Level 9.5 mg/dL (8.5-10.1) Micro Micro Microbiology 11/09/20 Blood Culture - Preliminary, Resulted NO GROWTH AFTER 1 DAY Review of Systems Constitutional: yes: other (UNABLE TO OBTAIN FROM PT) Physical Exam General Appearance: no apparent distress Skin: warm Respiratory: decreased breath sounds Heart: S1S2 Genitourinary: bladder flat Extremities: pulses present Neurology: alert, confused Musculoskeletal: Osteoarthritis, Other Assessment Assessment IMP HYPERKALEMIA ESRD - MWF ANEMIA HTN-IMPROVING ENCEPHALOPATY FALLS HX OF CVA PLAN WAS UNABLE TO HD YESTERDAY HE WAS NOT COOPERATIVE KIMBERLYN NEEDED HAD HD TODAY WITHOUT ISSUES UF TO DW NEURO EVALUATION MARLYS HAGEN MD Nov 11, 2020 18:26
[2020-11-11 19:00] VITALS: BP 137/79
[2020-11-11] MEDS: traZODone 50 MG TABLET. PO SCH (20:29)
[2020-11-11] MEDS: oxyCODONE IR 5 MG TABLET PO PRN (20:33)
[2020-11-11 22:55] VITALS: BP 156/87
[2020-11-12 02:59] VITALS: BP 143/80
[2020-11-12 07:00] VITALS: BP 149/97
[2020-11-12] MEDS: MINERAL OIL/PETROLATUM TOPICAL CREAM 113GM JAR. TP SCH ×2 (09:00→21:00)
[2020-11-12 09:05] LABS: HEMATOCRIT 33.7 % (39.0-53.0); HEMOGLOBIN 10.8 g/dL (13.0-17.5); RED BLOOD COUNT 3.86 x10^6/uL (4.30-5.70); RED CELL DISTRIBUTION WIDTH 18.7 % (11.5-14.5); WHITE BLOOD COUNT 4.7 x10^3/uL (4.0-11.0)
[2020-11-12 11:00] VITALS: BP 137/89
[2020-11-12] MEDS: METOPROLOL TART IMMED RELEASE 50 MG TABLET. PO SCH ×2 (11:32→22:12)
[2020-11-12] MEDS: CLOPIDOGREL BISULFATE 75 MG TABLET PO SCH (11:33)
[2020-11-12] MEDS: CALCIUM CARBONATE 500 MG TAB.CHEW PO SCH ×3 (11:33→18:01)
[2020-11-12] MEDS: POLYETHYLENE GLYCOL 3350 17 GM PACKET. PO SCH (11:33)
[2020-11-12] MEDS: SEVELAMER CARBONATE 800 MG TABLET. PO SCH ×3 (11:33→18:02)
[2020-11-12] MEDS: busPIRone 5 MG TABLET. PO SCH ×2 (11:33→22:14)
[2020-11-12] MEDS: SENNOSIDES/DOCUSATE 8.6/50MG TABLET. PO SCH ×2 (11:34→22:14)
[2020-11-12] MEDS: CHOLECALCIFEROL (VITAMIN D3) 5,000 UNIT CAPSULE PO SCH (11:34)
[2020-11-12] MEDS: cloNIDine HCL 0.1 MG TABLET PO SCH ×2 (11:34→22:13)
[2020-11-12] MEDS: LOSARTAN POTASSIUM 50 MG TABLET. PO SCH (11:35)
[2020-11-12] MEDS: oxyCODONE IR 5 MG TABLET PO PRN ×2 (11:36→18:05)
--- NOTE | 2020-11-12 11:56 | PDOC ---
Renal-Progress Notes Subjective Notes Notes NO NEW COMPLAINTS History of Present Illness Hx of present illness CHRONIC CONFUSION Vitals Vitals Vital Signs Date Time Temp Pulse Resp B/P (MAP) Pulse Ox O2 Delivery O2 Flow Rate FiO2 11/12/20 11:36 18 Room Air 11/12/20 11:35 89 137/89 11/12/20 11:00 98.2 95 98.2 11/12/20 02:59 2.0 Weight Weight [ ] I.O. Intake and Output Intake and Output 11/12/20 07:00 Intake Total 100 ml Output Total 0 ml Balance 100 ml Intake Oral 100 ml Output Urine Total 0 ml Labs Labs Laboratory Tests Test 11/12/20 08:00 White Blood Count 4.7 x10^3/uL (4.0-11.0) Red Blood Count 3.86 x10^6/uL (4.30-5.70) Hemoglobin 10.8 g/dL (13.0-17.5) Hematocrit 33.7 % (39.0-53.0) Mean Corpuscular Volume 87 fL (79-100) Mean Corpuscular Hemoglobin 28 pg (25-35) Mean Corpuscular Hemoglobin Concent 32 g/dL (31-37) Red Cell Distribution Width 18.7 % (11.5-14.5) Platelet Count 242 x10^3/uL (140-400) C-Reactive Protein, Quantitative 115.2 mg/L (0-3.3) Micro Micro Microbiology 11/09/20 Blood Culture - Preliminary, Resulted NO GROWTH AFTER 2 DAYS Review of Systems Constitutional: yes: other (UNABLE TO OBTAIN FROM PT) Physical Exam General Appearance: no apparent distress Skin: warm Respiratory: decreased breath sounds Heart: S1S2 Genitourinary: bladder flat Extremities: pulses present Neurology: alert, confused Musculoskeletal: Osteoarthritis, Other Assessment Assessment IMP HYPERKALEMIA-RESOLVED ESRD - MWF ANEMIA HTN-IMPROVING ENCEPHALOPATY FALLS HX OF CVA PLAN WAS UNABLE TO HD YESTERDAY HE WAS NOT COOPERATIVE KIMBERLYN NEEDED HD TOMORROW NEURO EVALUATION MARLYS HAGEN MD Nov 12, 2020 11:56
--- NOTE | 2020-11-12 12:54 | NUR ---
SEAMUS following for discharge planning. SEAMUS spoke with RN and reviewed chart. Pt to discharge to [facility] today, 11/12 with transition back to [facility]TC. Pt on room air. Discharge orders faxed. Transportation arranged by the facility for [id number]. RN to call report. Packet of clinicals ready to be sent with pt. No further SW needs at this time. Addendum: 11/12/[address] Spoke with RN. Discharge held per need for CT of the abdomen. SEAMUS contacted [facility] to cancel transportation.
--- NOTE | 2020-11-12 13:28 | PDOC ---
PROGRESS NOTES Date of Service DATE: 11/12/20 TIME: 13:27 Assessment Problems Medical Problems: (1) Altered mental status Status: Acute (2) Frequent falls Status: Acute (3) Person under investigation for COVID-19 Status: Acute Metabolic encephalopathy, better His most recent medication change is the Lyrica, that might be at fault. Patient has chronic pain, also psychiatric disorder. 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 I'm not getting a flavor of any seizures, he simply getting up and falling out of bed in the middle of the night, no one has witnessed any convulsion, he has not bitten his tongue. Plan Okay for discharge, follow-up with neurology as needed Continue as needed Zyprexa Hold off on repeating the EEG No need for MRI Discontinue Lyrica. Subjective no complaints, denies pain Objective Vital Signs Date Time Temp Pulse Resp B/P (MAP) Pulse Ox O2 Delivery O2 Flow Rate FiO2 11/12/20 11:36 18 Room Air 11/12/20 11:35 89 137/89 11/12/20 11:00 98.2 95 98.2 11/12/20 02:59 2.0 Intake and Output 11/12/20 07:00 Intake Total 100 ml Output Total 0 ml Balance 100 ml Intake Oral 100 ml Output Urine Total 0 ml PHYSICAL EXAM Alert. Oriented to place and person. PERRL. EOMI. CN: Left central facial weakness, otherwise no focal findings. Muscle tone: Increased on left Muscle strength: 3/5 hemiparesis on the left DTR: 2+ Plantar reflex: Flexor Gait: not examined in bed. Sensory exam: no abnormal findings. No cerebellar signs elicited. Review of Relevant I have reviewed the following items campbell (where applicable) has been applied. Labs Laboratory Tests Test 11/11/20 08:00 11/12/20 08:00 Sodium Level 142 mmol/L (136-145) Potassium Level 5.4 mmol/L (3.5-5.1) Chloride Level 97 mmol/L (98-107) Carbon Dioxide Level 24 mmol/L (21-32) Anion Gap 21 (6-14) Blood Urea Nitrogen 91 mg/dL (8-26) Creatinine 17.0 mg/dL (0.7-1.3) Estimated GFR (Cockcroft-Gault) 3.7 Glucose Level 72 mg/dL (70-99) Calcium Level 9.5 mg/dL (8.5-10.1) White Blood Count 4.7 x10^3/uL (4.0-11.0) Red Blood Count 3.86 x10^6/uL (4.30-5.70) Hemoglobin 10.8 g/dL (13.0-17.5) Hematocrit 33.7 % (39.0-53.0) Mean Corpuscular Volume 87 fL (79-100) Mean Corpuscular Hemoglobin 28 pg (25-35) Mean Corpuscular Hemoglobin Concent 32 g/dL (31-37) Red Cell Distribution Width 18.7 % (11.5-14.5) Platelet Count 242 x10^3/uL (140-400) C-Reactive Protein, Quantitative 115.2 mg/L (0-3.3) Laboratory Tests Test 11/12/20 08:00 White Blood Count 4.7 x10^3/uL (4.0-11.0) Red Blood Count 3.86 x10^6/uL (4.30-5.70) Hemoglobin 10.8 g/dL (13.0-17.5) Hematocrit 33.7 % (39.0-53.0) Mean Corpuscular Volume 87 fL (79-100) Mean Corpuscular Hemoglobin 28 pg (25-35) Mean Corpuscular Hemoglobin Concent 32 g/dL (31-37) Red Cell Distribution Width 18.7 % (11.5-14.5) Platelet Count 242 x10^3/uL (140-400) C-Reactive Protein, Quantitative 115.2 mg/L (0-3.3) Microbiology 11/09/20 Blood Culture - Preliminary, Resulted NO GROWTH AFTER 2 DAYS Medications Current Medications Ondansetron HCl (Zofran) 4 mg 1X ONCE IVP ; Start 11/09/20 at 19:45; Stop 11/09/20 at 19:51; Status DC Ondansetron HCl (Zofran) 4 mg STK-MED ONCE .ROUTE ; Start 11/09/20 at 19:44; Stop 11/09/20 at 19:44; Status DC Ondansetron HCl (Zofran) 4 mg PRN Q8HRS PRN IV NAUSEA/VOMITING; Start 11/09/20 at 22:45; Stop 11/10/20 at 01:56; Status DC Morphine Sulfate (Morphine Sulfate) 4 mg PRN Q2HR PRN IV PAIN Last administered on 11/10/20at 04:42; Start 11/09/20 at 22:45; Stop 11/10/20 at 09:51; Status DC Hydromorphone HCl (Dilaudid) 2 mg PRN Q3HRS PRN IVP PAIN Last administered on 11/10/20at 01:27; Start 11/10/20 at 01:00; Stop 11/10/20 at 09:40; Status DC Morphine Sulfate (Morphine Sulfate) 4 mg PRN Q2HR PRN IV PAIN; Start 11/10/20 at 01:00; Stop 11/10/20 at 09:40; Status DC Ondansetron HCl (Zofran) 4 mg PRN Q6HRS PRN IVP NAUSEA/VOMITING; Start 11/10/20 at 01:00 Acetaminophen (Tylenol) 650 mg PRN Q4HRS PRN PO MILD PAIN 1-3; Start 11/10/20 at 01:45 Amlodipine Besylate (Norvasc) 10 mg DAILY PO Last administered on 11/12/20at 11:35; Start 11/10/20 at 09:00 Baclofen (Lioresal) 10 mg TID PO ; Start 11/10/20 at 09:00; Stop 11/10/20 at 09:51; Status DC Bisacodyl (Dulcolax Supp) 10 mg PRN DAILY PRN RC CONSTIPATION; Start 11/10/20 at 01:45 Buspirone HCl (Buspar) 5 mg BID PO Last administered on 11/12/20at 11:33; Start 11/10/20 at 09:00 Clonidine HCl (Catapres Tts-3) 1 patch WEEKLY TD ; Start 11/10/20 at 09:00 Clonidine HCl (Catapres) 0.1 mg BID PO Last administered on 11/12/20at 11:34; Start 11/10/20 at 09:00 Clopidogrel Bisulfate (Plavix) 75 mg DAILY PO Last administered on 11/12/20at 11:33; Start 11/10/20 at 09:00 Docusate Sodium (Colace) 100 mg PRN BID PRN PO CONSTIPATION; Start 11/10/20 at 01:45 Famotidine (Pepcid) 20 mg DAILY10 PO ; Start 11/10/20 at 10:00; Stop 11/10/20 at 16:45; Status DC Guaifenesin (Robitussin Dm) 5 ml PRN Q6HRS PRN PO COUGH; Start 11/10/20 at 01:45 Hydralazine HCl (Apresoline) 50 mg TID PO ; Start 11/10/20 at 09:00; Stop 11/10/20 at 09:40; Status DC Losartan Potassium (Cozaar) 25 mg DAILY PO Last administered on 11/12/20at 1 1:35; Start 11/10/20 at 09:00 Nitroglycerin (Nitrostat) 0.4 mg PRN Q5MIN PRN SL CHEST PAIN; Start 11/10/20 at 01:45 Ondansetron HCl (Zofran Odt) 4 mg PRN Q4HRS PRN PO NAUSEA/VOMITING; Start 11/10/20 at 01:45 Polyethylene Glycol (miraLAX PACKET) 17 gm DAILY PO Last administered on 11/12/20at 11:33; Start 11/10/20 at 09:00 Pregabalin (Lyrica) 25 mg BID PO ; Start 11/10/20 at 09:00; Stop 11/10/20 at 09:40; Status DC Pregabalin (Lyrica) 50 mg HS PO ; Start 11/10/20 at 21:00; Stop 11/10/20 at 09:40; Status DC Quetiapine Fumarate (SEROquel) 25 mg TID PO ; Start 11/10/20 at 09:00; Stop 11/10/20 at 09:51; Status DC Senna/Docusate Sodium (Senna Plus) 1 tab BID PO Last administered on 11/12/20at 11:34; Start 11/10/20 at 09:00 Sevelamer Carbonate (Renvela) 2,400 mg TIDWMEALS PO Last administered on 11/12/20at 13:12; Start 11/10/20 at 08:00 Trazodone HCl (Desyrel) 50 mg QHS PO Last administered on 11/11/20at 20:29; Start 11/10/20 at 21:00 Vitamin B Complex (Mitul B) 1 tab DAILYWSUP PO Last administered on 11/11/20at 17:01; Start 11/10/20 at 17:00 Calcium Carbonate/ Glycine (Tums) 1,500 mg TIDAC PO Last administered on 11/12/20at 13:12; Start 11/10/20 at 07:30 Vitamin D (Vitamin D3) 5,000 unit DAILY PO Last administered on 11/12/20at 11:34; Start 11/10/20 at 09:00 Non-Formulary Medication (Hydralazine Hcl ) 1 tab TID PO ; Start 11/10/20 at 09:00; Status UNV Hydroxyzine HCl (Atarax) 50 mg QTUTHSA PO ; Start 11/10/20 at 16:00 Menthol/Methyl Salicylate (Bengay Greaseless Cream) 1 lakia PRN Q4HRS PRN TP PAIN; Start 11/10/20 at 02:15 Metoprolol Tartrate (Lopressor) 100 mg BID PO Last administered on 11/12/20at 11:32; Start 11/10/20 at 09:00 Multi-Ingredient Ointment (Hydrocerin Cream) 1 lakia BID TP Last administered on 11/12/20at 09:00; Start 11/10/20 at 09:00 Nifedipine (Procardia Xl) 60 mg BID PO ; Start 11/10/20 at 09:00; Stop 11/10/20 at 09:51; Status DC Oxycodone HCl (Roxicodone) 10 mg PRN Q6HRS PRN PO MODERATE-SEVERE PAIN Last administered on 11/12/20at 11:36; Start 11/10/20 at 02:15 Quetiapine Fumarate (SEROquel) 50 mg QHS PO ; Start 11/10/20 at 21:00; Stop 11/10/20 at 09:51; Status DC Hydralazine HCl (Apresoline) 100 mg TID PO Last administered on 11/12/20at 11:33; Start 11/10/20 at 09:45 Sodium Chloride 1,000 ml @ 1,000 mls/hr Q1H PRN IV hypotension; Start 11/10/20 at 13:15; Stop 11/10/20 at 19:14; Status DC Albumin Human 200 ml @ 200 mls/hr 1X PRN PRN IV Hypotension; Start 11/10/20 at 13:15; Stop 11/10/20 at 19:14; Status DC Sodium Chloride 1,000 ml @ 400 mls/hr Q2H30M PRN IV PATENCY; Start 11/10/20 at 13:15; Stop 11/11/20 at 01:14; Status DC Info (PHARMACY MONITORING -- do not chart) 1 each PRN DAILY PRN MC SEE COMMENTS; Start 11/10/20 at 13:15; Status UNV Info (PHARMACY MONITORING -- do not chart) 1 each PRN DAILY PRN MC SEE COMMENTS; Start 11/10/20 at 13:15; Status Cancel Olanzapine (ZyPREXA IM) 2.5 mg PRN Q4HRS PRN IM agitation Last administered on 11/11/20at 07:39; Start 11/10/20 at 15:15 Famotidine (Pepcid) 20 mg Q48H PO Last administered on 11/11/20at 09:00; Start 11/11/20 at 09:00 Info (PHARMACY MONITORING -- do not chart) 1 each PRN DAILY PRN MC SEE COMMENTS; Start 11/11/20 at 07:45 Lorazepam (Ativan Inj) 1 mg PRN Q4HRS PRN IVP ANXIETY / AGITATION; Start 11/11/20 at 08:00 Active Scripts Active Reported Oxycodone Hcl 5 Mg Capsule 10 Mg PO PRN Q6HRS PRN Losartan Potassium 50 Mg Tablet 25 Mg PO DAILY Hydralazine Hcl 100 Mg Tablet 1 Tab PO TID Guaifenesin Dm Syrup (Guaifenesin/Dextromethorphan) 5 Ml Syrup 5 Ml PO PRN Q6HRS PRN Clonidine Hcl 0.1 Mg Tablet 0.1 Mg PO BID Baclofen 10 Mg Tablet 10 Mg PO TID Amlodipine Besylate 10 Mg Tablet 10 Mg PO DAILY Tums (Calcium Carbonate) 300 Mg Tab.chew 1,500 Mg PO TIDAC Vistaril (Hydroxyzine Pamoate) 50 Mg Capsule 1 Cap PO QTUTHSA Seroquel (Quetiapine Fumarate) 50 Mg Tablet 1 Tab PO QHS Seroquel (Quetiapine Fumarate) 25 Mg Tablet 25 Mg PO TID Renvela (Sevelamer Carbonate) 800 Mg Tablet 3 Tab PO TID Metoprolol Tartrate 100 Mg Tablet 1 Tab PO BID Clonidine Tts-3 (Clonidine) 1 Each Patch.tdwk 1 Patch TD WEEKLY Buspirone Hcl 5 Mg Tablet 1 Tab PO BID Hydrocerin Lotion (Mineral Oil/I-Prop Myr/Water) 472 Ml Lotion 472 Ml TP BID Appy to dry areas topically every day 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 118 Ml TP PRN Q4HRS PRN Apply to shoulders B Complex (Vitamin B Complex) 1 Each Tablet 1 Each PO DAILYWSUP Zofran Odt (Ondansetron) 4 Mg Tab.rapdis 4 Mg PO PRN Q4HRS PRN Senna S Tablet (Sennosides/Docusate Sodium) 1 Each Tablet 1 Each PO BID NITROGLYCERIN SubLingual (Nitroglycerin) 0.4 Mg Tab.subl 0.4 Mg SL PRN Q5MIN PRN Miralax (Polyethylene Glycol 3350) 17 Gm Powd.pack 1 Packet PO DAILY Tylenol (Acetaminophen) 325 Mg Tablet 1-2 Tab PO PRN Q4HRS PRN Clopidogrel (Clopidogrel Bisulfate) 75 Mg Tablet 1 Tab PO DAILY Famotidine 20 Mg Tablet 20 Mg PO DAILY10 Trazodone Hcl 50 Mg Tablet 1 Tab PO QHS Vitamin D3 (Cholecalciferol (Vitamin D3)) 5,000 Unit Tablet 5,000 Unit PO DAILY Vitals/I & O Vital Sign - Last 24 Hours 11/11/20 11/11/20 11/11/20 11/11/20 15:00 15:36 15:37 15:42 Temp 98.4 98.4 Pulse 90 100 100 100 Resp 16 B/P (MAP) 168/103 (124) 150/90 150/90 150/90 Pulse Ox 94 O2 Delivery Room Air 11/11/20 11/11/20 11/11/20 11/11/20 17:00 19:00 20:00 20:29 Temp 98.3 98.3 Pulse 100 80 80 Resp 18 B/P (MAP) 150/90 137/79 (98) 137/79 Pulse Ox 94 O2 Delivery Room Air Room Air O2 Flow Rate 2.0 2.0 11/11/20 11/11/20 11/11/20 11/11/20 20:29 20:33 21:36 22:55 Temp 98.3 98.3 Pulse 80 69 Resp 20 20 18 B/P (MAP) 137/79 156/87 (110) Pulse Ox 94 96 O2 Delivery Room Air Room Air Room Air O2 Flow Rate 2.0 2.0 11/12/20 11/12/20 11/12/20 11/12/20 02:59 07:00 11:00 11:32 Temp 97.8 97.5 98.2 97.8 97.5 98.2 Pulse 82 89 89 89 Resp 17 18 17 B/P (MAP) 143/80 (101) 149/97 (114) 137/89 (105) 137/89 Pulse Ox 96 97 95 O2 Delivery Room Air Room Air Room Air O2 Flow Rate 2.0 11/12/20 11/12/20 11/12/20 11/12/20 11:33 11:34 11:35 11:35 Pulse 89 89 89 89 B/P (MAP) 137/89 137/89 137/89 137/89 11/12/20 11:36 Resp 18 O2 Delivery Room Air Intake and Output 11/11/20 11/11/20 11/12/20 15:00 23:00 07:00 Intake Total 100 ml Output Total 0 ml 0 ml Balance 100 ml 0 ml Justicifation of Admission Dx: Justifications for Admission: Justification of Admission Dx: N/A ERIC MAXWELL MD Nov 12, 2020 13:28
[2020-11-12 15:00] VITALS: BP 125/84
--- NOTE | 2020-11-12 16:19 | RAD ---
NUCLEAR MEDICINE, TAGGED LEUKOCYTE SCAN Clinical Indication: Reason: history of infected left arteriovenous graft, mental status change Comparison: CT chest without contrast November 07, 2020. Chest radiograph November 09, 2020. Technique: The patient was injected with 25 mCi of technetium 99m Ceretec. After an uptake and cleara nce period, anterior and posterior whole-body planar images are acquired. Findings: There is physiologic tracer uptake in the liver and spleen and bone marrow. Tracer uptake in the lung s is homogeneous and can be a normal variant. No significant findings are seen on recent imaging of t he chest. No abnormal tracer accumulation is identified in the soft tissues of the upper extremities, or pelvis. There is faint nonfocal tracer uptake inferior to the spleen on the anterior view. This i s not seen on the posterior view suggesting it is far anterior. IMPRESSION: 1. There is no abnormal tracer uptake of the upper extremities. 2. There is faint nonfocal tracer uptake in the anterior left midabdomen. This could localize to the abdominal wall or could be anterior intraperitoneal, correlate to physical exam and consider CT abdo men. Electronically signed by: Pato Tamez MD (11/12/2020 4:17 PM) [id number]
[2020-11-12] MEDS: VITAMIN B COMPLEX TABLET. PO SCH (18:04)
[2020-11-12] MEDS: hydrOXYzine 25 MG TABLET PO SCH (18:04)
[2020-11-12 19:00] VITALS: BP 138/84
[2020-11-12] MEDS: traZODone 50 MG TABLET. PO SCH (22:13)
[2020-11-12 23:00] VITALS: BP 144/83
[2020-11-13 03:00] VITALS: BP 129/86
[2020-11-13 07:00] VITALS: BP 151/76
[2020-11-13] MEDS ORDERED: ALBUMIN HUMAN 25% 200 ML IV PRN (08:00)
[2020-11-13] MEDS: CALCIUM CARBONATE 500 MG TAB.CHEW PO SCH ×2 (08:00→13:13)
[2020-11-13] MEDS ORDERED: IV NORMAL SALINE 1000ML BAG 1,000 ML IV PRN ×2 (08:00)
[2020-11-13] MEDS: SEVELAMER CARBONATE 800 MG TABLET. PO SCH ×2 (08:00→13:14)
[2020-11-13] MEDS ORDERED: IOHEXOL 300 MG/ML 100ML VIAL. IV ONE (08:15)
[2020-11-13] MEDS ORDERED: CONTRAST GIVEN. MC PRN (08:30)
[2020-11-13] MEDS: POLYETHYLENE GLYCOL 3350 17 GM PACKET. PO SCH (09:00)
[2020-11-13] MEDS: MINERAL OIL/PETROLATUM TOPICAL CREAM 113GM JAR. TP SCH (09:00)
[2020-11-13] MEDS ORDERED: DIALYSIS PATIENT. MC PRN ×2 (09:30)
--- NOTE | 2020-11-13 09:34 | PDOC ---
PROGRESS NOTES Date of Service DATE: 11/13/20 TIME: 09:33 Assessment Problems Medical Problems: (1) Altered mental status Status: Acute (2) Frequent falls Status: Acute (3) Person under investigation for COVID-19 Status: Acute Metabolic encephalopathy, better His most recent medication change is the Lyrica, that might be at fault. Patient has chronic pain, also psychiatric disorder. 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 I'm not getting a flavor of any seizures, he simply getting up and falling out of bed in the middle of the night, no one has witnessed any convulsion, he has not bitten his tongue. Plan Okay for discharge, follow-up with neurology as needed Continue as needed Zyprexa Hold off on repeating the EEG No need for MRI Discontinued Lyrica. Subjective No complaints Objective Vital Signs Date Time Temp Pulse Resp B/P (MAP) Pulse Ox O2 Delivery O2 Flow Rate FiO2 11/13/20 07:00 97.0 66 15 151/76 (101) Room Air 97.0 11/13/20 03:00 96 11/12/20 20:00 2.0 Intake and Output 11/13/20 07:00 Intake Total 620 ml Balance 620 ml Intake Oral 620 ml PHYSICAL EXAM Alert. Oriented to place and person. PERRL. EOMI. CN: Left central facial weakness, otherwise no focal findings. Muscle tone: Increased on left Muscle strength: 3/5 hemiparesis on the left DTR: 2+ Plantar reflex: Flexor Gait: not examined in bed. Sensory exam: no abnormal findings. No cerebellar signs elicited. Review of Relevant I have reviewed the following items campbell (where applicable) has been applied. Labs Laboratory Tests Test 11/12/20 08:00 White Blood Count 4.7 x10^3/uL (4.0-11.0) Red Blood Count 3.86 x10^6/uL (4.30-5.70) Hemoglobin 10.8 g/dL (13.0-17.5) Hematocrit 33.7 % (39.0-53.0) Mean Corpuscular Volume 87 fL (79-100) Mean Corpuscular Hemoglobin 28 pg (25-35) Mean Corpuscular Hemoglobin Concent 32 g/dL (31-37) Red Cell Distribution Width 18.7 % (11.5-14.5) Platelet Count 242 x10^3/uL (140-400) C-Reactive Protein, Quantitative 115.2 mg/L (0-3.3) Microbiology 11/09/20 Blood Culture - Preliminary, Resulted NO GROWTH AFTER 3 DAYS Medications Current Medications Ondansetron HCl (Zofran) 4 mg 1X ONCE IVP ; Start 11/09/20 at 19:45; Stop 11/09/20 at 19:51; Status DC Ondansetron HCl (Zofran) 4 mg STK-MED ONCE .ROUTE ; Start 11/09/20 at 19:44; Stop 11/09/20 at 19:44; Status DC Ondansetron HCl (Zofran) 4 mg PRN Q8HRS PRN IV NAUSEA/VOMITING; Start 11/09/20 at 22:45; Stop 11/10/20 at 01:56; Status DC Morphine Sulfate (Morphine Sulfate) 4 mg PRN Q2HR PRN IV PAIN Last administered on 11/10/20at 04:42; Start 11/09/20 at 22:45; Stop 11/10/20 at 09:51; Status DC Hydromorphone HCl (Dilaudid) 2 mg PRN Q3HRS PRN IVP PAIN Last administered on 11/10/20at 01:27; Start 11/10/20 at 01:00; Stop 11/10/20 at 09:40; Status DC Morphine Sulfate (Morphine Sulfate) 4 mg PRN Q2HR PRN IV PAIN; Start 11/10/20 at 01:00; Stop 11/10/20 at 09:40; Status DC Ondansetron HCl (Zofran) 4 mg PRN Q6HRS PRN IVP NAUSEA/VOMITING; Start 11/10/20 at 01:00 Acetaminophen (Tylenol) 650 mg PRN Q4HRS PRN PO MILD PAIN 1-3; Start 11/10/20 at 01:45 Amlodipine Besylate (Norvasc) 10 mg DAILY PO Last administered on 11/12/20at 11:35; Start 11/10/20 at 09:00 Baclofen (Lioresal) 10 mg TID PO ; Start 11/10/20 at 09:00; Stop 11/10/20 at 09:51; Status DC Bisacodyl (Dulcolax Supp) 10 mg PRN DAILY PRN RC CONSTIPATION; Start 11/10/20 at 01:45 Buspirone HCl (Buspar) 5 mg BID PO Last administered on 11/12/20at 22:14; Start 11/10/20 at 09:00 Clonidine HCl (Catapres Tts-3) 1 patch WEEKLY TD ; Start 11/10/20 at 09:00 Clonidine HCl (Catapres) 0.1 mg BID PO Last administered on 11/12/20at 22:13; Start 11/10/20 at 09:00 Clopidogrel Bisulfate (Plavix) 75 mg DAILY PO Last administered on 11/12/20at 11:33; Start 11/10/20 at 09:00 Docusate Sodium (Colace) 100 mg PRN BID PRN PO CONSTIPATION; Start 11/10/20 at 01:45 Famotidine (Pepcid) 20 mg DAILY10 PO ; Start 11/10/20 at 10:00; Stop 11/10/20 at 16:45; Status DC Guaifenesin (Robitussin Dm) 5 ml PRN Q6HRS PRN PO COUGH; Start 11/10/20 at 01:45 Hydralazine HCl (Apresoline) 50 mg TID PO ; Start 11/10/20 at 09:00; Stop 11/10/20 at 09:40; Status DC Losartan Potassium (Cozaar) 25 mg DAILY PO Last administered on 11/12/20at 11:35; Start 11/10/20 at 09:00 Nitroglycerin (Nitrostat) 0.4 mg PRN Q5MIN PRN SL CHEST PAIN; Start 11/10/20 at 01:45 Ondansetron HCl (Zofran Odt) 4 mg PRN Q4HRS PRN PO NAUSEA/VOMITING; Start 11/10/20 at 01:45 Polyethylene Glycol (miraLAX PACKET) 17 gm DAILY PO Last administered on 11/12/20at 11:33; Start 11/10/20 at 09:00 Pregabalin (Lyrica) 25 mg BID PO ; Start 11/10/20 at 09:00; Stop 11/10/20 at 09:40; Status DC Pregabalin (Lyrica) 50 mg HS PO ; Start 11/10/20 at 21:00; Stop 11/10/20 at 09:40; Status DC Quetiapine Fumarate (SEROquel) 25 mg TID PO ; Start 11/10/20 at 09:00; Stop 10/30 12/20 at 09:51; Status DC Senna/Docusate Sodium (Senna Plus) 1 tab BID PO Last administered on 11/12/20at 22:14; Start 11/10/20 at 09:00 Sevelamer Carbonate (Renvela) 2,400 mg TIDWMEALS PO Last administered on 11/13/20at 08:00; Start 11/10/20 at 08:00 Trazodone HCl (Desyrel) 50 mg QHS PO Last administered on 11/12/20at 22:13; Start 11/10/20 at 21:00 Vitamin B Complex (Mitul B) 1 tab DAILYWSUP PO Last administered on 11/12/20at 18:04; Start 11/10/20 at 17:00 Calcium Carbonate/ Glycine (Tums) 1,500 mg TIDAC PO Last administered on 11/13/20at 08:00; Start 11/10/20 at 07:30 Vitamin D (Vitamin D3) 5,000 unit DAILY PO Last administered on 11/12/20at 11:34; Start 11/10/20 at 09:00 Non-Formulary Medication (Hydralazine Hcl ) 1 tab TID PO ; Start 11/10/20 at 09:00; Status UNV Hydroxyzine HCl (Atarax) 50 mg QTUTHSA PO Last administered on 11/12/20at 18:04; Start 11/10/20 at 16:00 Menthol/Methyl Salicylate (Bengay Greaseless Cream) 1 lakia PRN Q4HRS PRN TP PAIN; Start 11/10/20 at 02:15 Metoprolol Tartrate (Lopressor) 100 mg BID PO Last administered on 11/12/20at 22:12; Start 11/10/20 at 09:00 Multi-Ingredient Ointment (Hydrocerin Cream) 1 lakia BID TP Last administered on 11/12/20at 09:00; Start 11/10/20 at 09:00 Nifedipine (Procardia Xl) 60 mg BID PO ; Start 11/10/20 at 09:00; Stop 11/10/20 at 09:51; Status DC Oxycodone HCl (Roxicodone) 10 mg PRN Q6HRS PRN PO MODERATE-SEVERE PAIN Last administered on 11/12/20at 18:05; Start 11/10/20 at 02:15 Quetiapine Fumarate (SEROquel) 50 mg QHS PO ; Start 11/10/20 at 21:00; Stop 11/10/20 at 09:51; Status DC Hydralazine HCl (Apresoline) 100 mg TID PO Last administered on 11/12/20at 22:13; Start 11/10/20 at 09:45 Sodium Chloride 1,000 ml @ 1,000 mls/hr Q1H PRN IV hypotension; Start 11/10/20 at 13:15; Stop 11/10/20 at 19:14; Status DC Albumin Human 200 ml @ 200 mls/hr 1X PRN PRN IV Hypotension; Start 11/10/20 at 13:15; Stop 11/10/20 at 19:14; Status DC Sodium Chloride 1,000 ml @ 400 mls/hr Q2H30M PRN IV PATENCY; Start 11/10/20 at 13:15; Stop 11/11/20 at 01:14; Status DC Info (PHARMACY MONITORING -- do not chart) 1 each PRN DAILY PRN MC SEE COMMENTS; Start 11/10/20 at 13:15; Status UNV Info (PHARMACY MONITORING -- do not chart) 1 each PRN DAILY PRN MC SEE COMMENTS; Start 11/10/20 at 13:15; Status Cancel Olanzapine (ZyPREXA IM) 2.5 mg PRN Q4HRS PRN IM agitation Last administered on 11/11/20at 07:39; Start 11/10/20 at 15:15 Famotidine (Pepcid) 20 mg Q48H PO Last administered on 11/11/20at 09:00; Start 11/11/20 at 09:00 Info (PHARMACY MONITORING -- do not chart) 1 each PRN DAILY PRN MC SEE COMMENTS; Start 11/11/20 at 07:45 Lorazepam (Ativan Inj) 1 mg PRN Q4HRS PRN IVP ANXIETY / AGITATION; Start 11/11/20 at 08:00 Iohexol (Omnipaque 300 Mg/ml) 75 ml 1X ONCE IV ; Start 11/13/20 at 08:15; Stop 11/13/20 at 08:20; Status DC Info (CONTRAST GIVEN -- Rx MONITORING) 1 each PRN DAILY PRN MC SEE COMMENTS; Start 11/13/20 at 08:30; Stop 11/15/20 at 08:29 Active Scripts Active Reported Oxycodone Hcl 5 Mg Capsule 10 Mg PO PRN Q6HRS PRN Losartan Potassium 50 Mg Tablet 25 Mg PO DAILY Hydralazine Hcl 100 Mg Tablet 1 Tab PO TID Guaifenesin Dm Syrup (Guaifenesin/Dextromethorphan) 5 Ml Syrup 5 Ml PO PRN Q6HRS PRN Clonidine Hcl 0.1 Mg Tablet 0.1 Mg PO BID Baclofen 10 Mg Tablet 10 Mg PO TID Amlodipine Besylate 10 Mg Tablet 10 Mg PO DAILY Tums (Calcium Carbonate) 300 Mg Tab.chew 1,500 Mg PO TIDAC Vistaril (Hydroxyzine Pamoate) 50 Mg Capsule 1 Cap PO QTUTHSA Seroquel (Quetiapine Fumarate) 50 Mg Tablet 1 Tab PO QHS Seroquel (Quetiapine Fumarate) 25 Mg Tablet 25 Mg PO TID Renvela (Sevelamer Carbonate) 800 Mg Tablet 3 Tab PO TID Metoprolol Tartrate 100 Mg Tablet 1 Tab PO BID Clonidine Tts-3 (Clonidine) 1 Each Patch.tdwk 1 Patch TD WEEKLY Buspirone Hcl 5 Mg Tablet 1 Tab PO BID Hydrocerin Lotion (Mineral Oil/I-Prop Myr/Water) 472 Ml Lotion 472 Ml TP BID 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 118 Ml TP PRN Q4HRS PRN Apply to shoulders B Complex (Vitamin B Complex) 1 Each Tablet 1 Each PO DAILYWSUP Zofran Odt (Ondansetron) 4 Mg Tab.rapdis 4 Mg PO PRN Q4HRS PRN Senna S Tablet (Sennosides/Docusate Sodium) 1 Each Tablet 1 Each PO BID NITROGLYCERIN SubLingual (Nitroglycerin) 0.4 Mg Tab.subl 0.4 Mg SL PRN Q5MIN PRN Miralax (Polyethylene Glycol 3350) 17 Gm Powd.pack 1 Packet PO DAILY Tylenol (Acetaminophen) 325 Mg Tablet 1-2 Tab PO PRN Q4HRS PRN Clopidogrel (Clopidogrel Bisulfate) 75 Mg Tablet 1 Tab PO DAILY Famotidine 20 Mg Tablet 20 Mg PO DAILY10 Trazodone Hcl 50 Mg Tablet 1 Tab PO QHS Vitamin D3 (Cholecalciferol (Vitamin D3)) 5,000 Unit Tablet 5,000 Unit PO DAILY Vitals/I & O Vital Sign - Last 24 Hours 11/12/20 11/12/20 11/12/20 11/12/20 11:00 11:32 11:33 11:34 Temp 98.2 98.2 Pulse 89 89 89 89 Resp 17 B/P (MAP) 137/89 (105) 137/89 137/89 137/89 Pulse Ox 95 O2 Delivery Room Air 11/12/20 11/12/20 11/12/20 11/12/20 11:35 11:35 11:36 12:36 Pulse 89 89 Resp 18 18 B/P (MAP) 137/89 137/89 O2 Delivery Room Air Room Air 11/12/20 11/12/20 11/12/20 11/12/20 14:49 15:00 18:05 19:00 Temp 97.2 97.1 97.2 97.1 Pulse 89 69 81 Resp 18 20 18 B/P (MAP) 137/89 125/84 (98) 138/84 (102) Pulse Ox 99 97 O2 Delivery Room Air Room Air Room Air 11/12/20 11/12/20 11/12/20 11/12/20 19:05 20:00 22:12 22:13 B/P (MAP) 138/84 138/84 O2 Delivery Room Air Room Air O2 Flow Rate 2.0 11/12/20 11/12/20 11/13/20 11/13/20 22:13 23:00 03:00 07:00 Temp 98.4 97.9 97.0 98.4 97.9 97.0 Pulse 74 65 66 Resp 18 18 15 B/P (MAP) 138/84 144/83 (103) 129/86 (100) 151/76 (101) Pulse Ox 97 96 O2 Delivery Room Air Room Air Room Air Intake and Output 11/12/20 11/12/20 11/13/20 15:00 23:00 07:00 Intake Total 400 ml 220 ml 0 ml Balance 400 ml 220 ml 0 ml Justicifation of Admission Dx: Justifications for Admission: Justification of Admission Dx: N/A ERIC MAXWELL MD Nov 13, 2020 09:34
--- NOTE | 2020-11-13 09:46 | RAD ---
PQRS Compliance Statement: One or more of the following individualized dose reduction techniques were utilized for this examinat ion: 1. Automated exposure control 2. Adjustment of the mA and/or kV according to patient size 3. Use of iterative reconstruction technique CT ABDOMEN W 11/13/2020 8:03 AM Indication: Abnormal white blood cell scan COMPARISON: None available. TECHNIQUE: Multiple axial CT images of the abdomen were obtained after the intravenous administration of nonionic contrast. Coronal and sagittal reformats are provided. FINDINGS: There is subsegmental atelectasis at the right lung base. Heart size within normal limits. Liver, spl een, bilateral adrenal glands, and pancreas are normal in appearance. Contracted gallbladder limits e valuation. Abdominal aorta is normal in course and caliber with moderate to advanced calcified athero matous plaque. No pathologically enlarged lymph nodes in abdomen. There is no free fluid or free intr aperitoneal air. Small large bowel are normal in caliber. No bowel obstruction or inflammation. No in traabdominal abscess. No inflammation along the abdominal wall. There is symmetric enhancement of the kidneys. Innumerable renal cortical hypodensities are identified suggestive of cysts. No hydronephro sis. Given extensive renal cystic changes, there is limited evaluation for suspicious renal mass. No definite abscess is visualized. Mild likely chronic perinephric edema appears symmetric. No suspiciou s osseous abnormality is identified. IMPRESSION: No definite inflammatory changes are identified within the imaged abdomen. Innumerable bilateral renal cysts which may be associated with polycystic kidney disease. MRI of the abdomen with and without contrast could be of benefit to assess for underlying renal cystic neoplasm. Mild chronic appearing perinephric edema is identified. Correlate with urinalysis. Electronically signed by: Yue Fuller MD (11/13/2020 9:44 AM) [id number]
[2020-11-13] MEDS: cloNIDine HCL 0.1 MG TABLET PO SCH (13:13)
[2020-11-13] MEDS: CHOLECALCIFEROL (VITAMIN D3) 5,000 UNIT CAPSULE PO SCH (13:13)
[2020-11-13] MEDS: SENNOSIDES/DOCUSATE 8.6/50MG TABLET. PO SCH (13:14)
[2020-11-13] MEDS: FAMOTIDINE 20 MG TABLET. PO SCH (13:14)
[2020-11-13] MEDS: busPIRone 5 MG TABLET. PO SCH (13:14)
[2020-11-13] MEDS: METOPROLOL TART IMMED RELEASE 50 MG TABLET. PO SCH (13:14)
[2020-11-13 13:15] VITALS: BP 128/90
[2020-11-13] MEDS: LOSARTAN POTASSIUM 50 MG TABLET. PO SCH (13:15)
[2020-11-13] MEDS: CLOPIDOGREL BISULFATE 75 MG TABLET PO SCH (13:15)
--- NOTE | 2020-11-13 13:29 | PDOC ---
Renal-Progress Notes Subjective Notes Notes NO NEW COMPLAINTS History of Present Illness Hx of present illness STABLE Vitals Vitals Vital Signs Date Time Temp Pulse Resp B/P (MAP) Pulse Ox O2 Delivery O2 Flow Rate FiO2 11/13/20 13:15 66 151/76 11/13/20 07:30 Room Air 11/13/20 07:00 97.0 15 97.0 11/13/20 03:00 96 11/12/20 20:00 2.0 Weight Weight [ ] I.O. Intake and Output Intake and Output 11/13/20 06:59 Intake Total 620 ml Balance 620 ml Intake Oral 620 ml Micro Micro Microbiology 11/09/20 Blood Culture - Preliminary, Resulted NO GROWTH AFTER 3 DAYS Review of Systems Constitutional: yes: other (UNABLE TO OBTAIN FROM PT) Physical Exam General Appearance: no apparent distress Skin: warm Respiratory: decreased breath sounds Heart: S1S2 Genitourinary: bladder flat Extremities: pulses present Neurology: alert, confused Musculoskeletal: Osteoarthritis, Other Assessment Assessment IMP HYPERKALEMIA-RESOLVED ESRD - MWF ANEMIA HTN-IMPROVING ENCEPHALOPATY FALLS HX OF CVA PLAN HD TODAY UF TO [facility] MORRISON MD Nov 13, 2020 13:29
--- NOTE | 2020-11-13 14:27 | SNU/HH DC ---
DISCHARGE ORDERS DISCHARGE INFORMATION: DISCHARGE DATE: Nov 13, 2020 FINAL DIAGNOSIS Problems Medical Problems: (1) Altered mental status Status: Acute (2) Frequent falls Status: Acute (3) Person under investigation for COVID-19 Status: Acute CONDITION ON DISCHARGE: Stable CODE STATUS: Code Status: Full PENITENTIARY: SNF STAY <30 DAYS: Yes POST DISCHARGE ORDERS: ACTIVITY ORDERS: Resume previous activity, Activity as tolerated WEIGHT BEARING STATUS: As tolerated DIET AFTER DISCHARGE: Renal WOUND/INCISION CARE: Ice to area for comfort CHECKS AFTER DISCHARGE: CHECKS AFTER DISCHARGE: Check blood press - daily, Weigh Yourself Daily TREATMENT/EQUIPMENT ORDERS: ADAPTIVE EQUIPMENT NEEDED: None, Walker RESPIRATORY EQUIPMENT NEEDED: Oxygen Physical Therapy For: Evalulation/Treatment Occupational Therapy For: Evaluation/Treatment DISCHARGE MEDICATIONS: Home Meds Reported Medications Oxycodone Hcl (OXYCODONE HCL) 5 Mg Capsule, 10 MG PO PRN Q6HRS PRN for PAIN, TAB 0 Refills 11/10/20 Losartan Potassium (LOSARTAN POTASSIUM) 50 Mg Tablet, 25 MG PO DAILY for HYPERTENSION, TAB 11/10/20 Hydralazine Hcl (HYDRALAZINE HCL) 100 Mg Tablet, 1 TAB PO TID for HTN, #270 TAB 3 Refills 11/10/20 Guaifenesin/Dextromethorphan (GUAIFENESIN DM SYRUP) 5 Ml Syrup, 5 ML PO PRN Q6HRS PRN for COUGH, LIQUID 11/10/20 Clonidine Hcl (CLONIDINE HCL) 0.1 Mg Tablet, 0.1 MG PO BID for htn, TAB 11/10/20 Baclofen (BACLOFEN) 10 Mg Tablet, 10 MG PO TID for MUSCLE RELAXER, #30 TAB 0 Refills 11/09/20 Amlodipine Besylate (AMLODIPINE BESYLATE) 10 Mg Tablet, 10 MG PO DAILY for HTN, TAB 11/09/20 Calcium Carbonate (TUMS) 300 Mg Tab.chew, 1500 MG PO TIDAC for heartburn/indigestion, TAB.CHEW 01/21/19 Hydroxyzine Pamoate (VISTARIL) 50 Mg Capsule, 1 CAP PO QTUTHSA for PSYCHOSIS , #90 CAP 2 Refills 01/20/19 Quetiapine Fumarate (SEROQUEL) 50 Mg Tablet, 1 TAB PO QHS for PSYCHOSIS , #30 TAB 2 Refills 01/20/19 Quetiapine Fumarate (SEROQUEL) 25 Mg Tablet, 25 MG PO TID for PSYCHOSIS, TAB 01/20/19 Sevelamer Carbonate (RENVELA) 800 Mg Tablet, 3 TAB PO TID for DILAYSIS, #810 TAB 3 Refills 01/20/19 Metoprolol Tartrate (METOPROLOL TARTRATE) 100 Mg Tablet, 1 TAB PO BID for HTN, #60 TAB 5 Refills 01/20/19 Clonidine (CLONIDINE TTS-3 ) 1 Each Patch.tdwk, 1 PATCH TD WEEKLY for HTN, PATCH 01/20/19 Buspirone Hcl (BUSPIRONE HCL) 5 Mg Tablet, 1 TAB PO BID for ANXIETY, #60 TAB 2 Refills 01/20/19 Mineral Oil/I-Prop Myr/Water (Hydrocerin Lotion) 472 Ml Lotion, 472 ML TP BID, MISC Appy to dry areas 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 05/01/18 Docusate Sodium (DOCUSATE SODIUM) 100 Mg Capsule, 100 MG PO PRN BID PRN for CONSTIPATION, CAP 05/01/18 Bisacodyl (BISACODYL) 10 Mg Supp.rect, 10 MG RC PRN DAILY PRN for CONSTIPATION, SUPP.RECT 0 Refills 05/01/18 Menthol (BIOFREEZE) 118 Ml Gel..ml., 118 ML TP PRN Q4HRS PRN for PAIN, EACH Apply to shoulders 05/01/18 Vitamin B Complex (B COMPLEX) 1 Each Tablet, 1 EACH PO DAILYWSUP, TAB 05/01/18 Ondansetron (ZOFRAN ODT) 4 Mg Tab.rapdis, 4 MG PO PRN Q4HRS PRN for NAUSEA/VOMITING, TAB 05/01/18 Sennosides/Docusate Sodium (SENNA S TABLET) 1 Each Tablet, 1 EACH PO BID, TAB 02/23/18 Nitroglycerin (NITROGLYCERIN SubLingual) 0.4 Mg Tab.subl, 0.4 MG SL PRN Q5MIN PRN for CHEST PAIN, BOTTLE 02/23/18 Polyethylene Glycol 3350 (MIRALAX) 17 Gm Powd.pack, 1 PACKET PO DAILY, #30 PACKE T 3 Refills 02/23/18 Acetaminophen (TYLENOL) 325 Mg Tablet, 1-2 TAB PO PRN Q4HRS PRN for PAIN, #60 TAB 2 Refills 01/28/18 Clopidogrel Bisulfate (CLOPIDOGREL) 75 Mg Tablet, 1 TAB PO DAILY, #90 TAB 1 Refill 01/28/18 Famotidine (FAMOTIDINE) 20 Mg Tablet, 20 MG PO DAILY10, TAB 01/28/18 Trazodone Hcl (TRAZODONE HCL) 50 Mg Tablet, 1 TAB PO QHS for INSOMNIA, #30 TAB 1 Refill 01/28/18 Cholecalciferol (Vitamin D3) (VITAMIN D3) 5,000 Unit Tablet, 5000 UNIT PO DAILY, TAB 01/07/18 Discontinued Reported Medications Clopidogrel Bisulfate (CLOPIDOGREL) 75 Mg Tablet, 75 MG PO DAILY for TO PREVENT BLOOD CLOTS, #30 TAB 0 Refills 11/10/20 Pregabalin (LYRICA) 50 Mg Capsule, 50 MG PO HS for chronic pain syndrome, CAP 11/10/20 Pregabalin (LYRICA) 50 Mg Capsule, 25 MG PO BID for chronic pain syndrome, CAP 0 Refills 11/10/20 Calcium Carbonate (TUMS) 300 Mg Tab.chew, 500 MG PO PRN Q4HRS PRN for INDIGESTION, TAB.CHEW 01/21/19 Nifedipine (PROCARDIA XL) 60 Mg Tab.er.24, 1 TAB PO BID for HTN, #90 TAB 1 Refill 01/20/19 Hydralazine Hcl (HYDRALAZINE HCL) 50 Mg Tablet, 1 TAB PO TID for HTN, #90 TAB 5 Refills 01/20/19 Clonidine Hcl (CLONIDINE HCL) 0.2 Mg Tablet, 0.2 MG PO PRN Q12HR PRN for HYPERTENSION, SEE COMMENTS, TAB for SBP >150 05/01/18 Oxycodone Hcl (OXYCODONE HCL IMMED.RELEASE ) 5 Mg Tablet, 1 TAB PO PRN Q4HRS PRN for PAIN, #120 TAB 02/23/18 SHIRLEY POOLE MD Nov 13, 2020 14:27
--- NOTE | 2020-11-13 14:30 | NUR ---
SW following for discharge planning. SW spoke with RN and reviewed chart. [facility] with transition back to [facility]. Pt on room air. Discharge orders faxed yesterday. Transportation arranged by the facility for 1700. RN to call report. Packet of clinicals ready to be sent with pt. No further SW needs at this time.
[2020-11-13 15:00] VITALS: BP 114/73
--- NOTE | 2020-11-13 15:47 | NUR ---
Report called to [facility]. Patient visit and imaging studies reviewed with RN. Will continue to monitor patient until discharge. Patient to be picked up between [id number].
--- NOTE | 2020-11-13 16:45 | NUR ---
Discharge Note: LIV MONTANO [address] Discharge instructions and discharge home medications reviewed with Other facility and a copy given. All questions have been answered and understanding verbalized. The following instructions and handouts were given: discharge instructions, new prescription, and chart copy. Discontinued lines and drains: Peripheral IV discontinued intact. Patient discharged to [facility] with Transport Personnel via Wheelchair
--- NOTE | 2020-12-07 09:37 | DS ---
DATE OF DISCHARGE: 11/13/2020 HOSPITAL COURSE: The patient is a 50-year-old -[place] male patient, a resident at [facility] and [facility], who was admitted to the Emergency Room with recurrent falls that started since he was started on Lyrica as he was complaining of severe left upper and left lower extremity pain. We did start him on a small dose at 25 mcg twice a day during daytime and 50 at bedtime; however, he apparently fell 8 times since 11/01/2020. There was suggestion from the nursing staff that the patient might have seizure disorder and therefore the patient was transferred to [facility] where he was extensively investigated and has had imaging studies, lab work and we did consult Dr. Oakley and basically there was no convincing evidence of seizure disorder. The patient has not bitten his tongue and no witnessed convulsion and therefore we continued hemodialysis and once the Lyrica was discontinued he has no further episodes of fall and therefore the patient was discharged back to [facility] and [facility] to continue as he is a long-term resident there and to continue hemodialysis as an outpatient. PHYSICAL EXAMINATION: GENERAL: When I examined him on the day of discharge, the patient looked well and was clearly in no apparent respiratory distress. He was pale, but not jaundiced or cyanosed. No lymphadenopathy, no thyromegaly. No jugular venous distention or limb edema. VITAL SIGNS: His heart rate was 89, blood pressure was 114/73, temperature was 99.1, respiratory rate was 15 and oxygen saturation was 96% on room air. HEAD, EYES, EARS, NOSE AND THROAT: Showed normocephalic, atraumatic. NECK: Supple. HEART: Normal first and second heart sounds. No gallop or murmur. CHEST: Clear to auscultation. No crepitation or rhonchi. ABDOMEN: Scaphoid, soft and nontender. NEUROLOGIC: He is awake, alert and responding appropriately. All cranial nerves are intact. He has left-sided hemiparesis. The patient is mostly bed bound and wheelchair bound. He is able to stand and pivot and sometimes he is able to walk for a short distance with a walker. LABORATORY DATA: His lab work on day before discharge showed a white cell count 4700, hemoglobin 11, hematocrit 33, MCV 87 and platelet count 242,000. His chemistry is variable as he is hemodialysis dependent. DISCHARGE MEDICATIONS: He was discharged to [facility] to continue on Tylenol 650 every 4 hours as needed, amlodipine 10 mg once a day, baclofen 10 mg 3 times a day, bisacodyl 10 mg rectally daily p.r.n. for constipation, buspirone 5 mg twice a day, calcium carbonate 1500 mg 3 times a day, cholecalciferol 5000 units every day and clonidine TTS-3 one patch topically weekly. He is on Plavix 75 mg once a day and Colace 100 mg twice a day. He is on famotidine 20 mg once a day. He is on guaifenesin dextromethorphan syrup 5 mL every 6 hours, hydralazine 100 mg 3 times a day, hydroxyzine pamoate 50 mg every Monday, , Monday; losartan potassium 25 mg daily, Biofreeze applied topically every 4 hours as needed, metoprolol tartrate 100 mg twice a day, mineral oil for Hydrocerin lotion applied topically twice a day, nitroglycerin 0.4 mg sublingually as needed, ondansetron 4 mg every 4 hours as needed, oxycodone 10 mg every 6 hours, polyethylene glycol 17 grams daily, quetiapine fumarate 25 mg 3 times a day and quetiapine fumarate 50 mg at bedtime scheduled. He is on Senna S 1 tablet twice a day, sevelamer for Renvela 2400 mg 3 times a day with meals, trazodone 50 mg at bedtime and vitamin B complex 1 tablet once a day. FINAL DISCHARGE DIAGNOSES: 1. Altered mental status, improved. 2. Recurrent falls, likely due to LYRICA, resolved. 3. End-stage renal disease, on hemodialysis. 4. Hypertension. 5. 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 SHIRLEY POOLE MD DR: JOSE ALBERTO/ritesh JOB#: [id number] / [id number]
== END 2020-11-13 16:45 | DRG 70 ==
LOC: ER 17:46 → 6 SOUTH 20:57
PROVIDERS: ADMIT Internal Medicine; ATTEND Internal Medicine
PROC: 5A1D70Z Performance of Urinary Filtration, Intermittent, Less than 6 Hours Per Day (ICD-10-PCS; principal; 2020-11-10)
PROC: 5A1D70Z Performance of Urinary Filtration, Intermittent, Less than 6 Hours Per Day (ICD-10-PCS; 2020-11-11)
PROC: 5A1D70Z Performance of Urinary Filtration, Intermittent, Less than 6 Hours Per Day (ICD-10-PCS; 2020-11-13)
DX: G93.41 Metabolic encephalopathy (principal); N18.6 End stage renal disease; G93.1 Anoxic brain damage, not elsewhere classified; I13.2 Hypertensive heart and chronic kidney disease with heart failure and with stage 5 chronic kidney disease, or end stage renal disease; E87.5 Hyperkalemia; G81.94 Hemiplegia, unspecified affecting left nondominant side; R29.6 Repeated falls; Z99.2 Dependence on renal dialysis; D63.1 Anemia in chronic kidney disease; G89.29 Other chronic pain; I50.9 Heart failure, unspecified; K31.84 Gastroparesis; R56.9 Unspecified convulsions; W06.XXXA Fall from bed, initial encounter; Z20.822 Contact with and (suspected) exposure to COVID-19; Z82.49 Family history of ischemic heart disease and other diseases of the circulatory system; Z86.61 Personal history of infections of the central nervous system; Z86.73 Personal history of transient ischemic attack (TIA), and cerebral infarction without residual deficits; Z86.74 Personal history of sudden cardiac arrest; Z91.19 Patient's noncompliance with other medical treatment and regimen; Z99.3 Dependence on wheelchair; E21.3 Hyperparathyroidism, unspecified; F41.9 Anxiety disorder, unspecified; K21.9 Gastro-esophageal reflux disease without esophagitis
CPT/HCPCS: 36415; 70450; 71045; 71250; 74160; 78802; 80048; 80053; 82550; 83605; 83735; 84145; 84484; 85007; 85025; 85027; 86140; 87040; 87804; 93005; A9521; J1170; J2270; J3490; U0003; 92610-GN; 97110-GO; 97535-GO; 99285-25; G0378

== ENCOUNTER → 2021-05-27 | Outpatient (CLI) | payer MEDICARE, OTHER ==
[2021-05-21 15:00] VITALS: BP 163/89
[~2021-05-27] MED LIST changes: +GUAI5SYR PO; +HYDR100T24 PO; +HYDR453.3 TP; +LOSA-73 PO; +OXYC5CAP PO; +PREG50CA91 PO
--- NOTE | 2021-05-27 13:40 | KCIC ---
MR CERVICAL SPINE WO 05/27/2021 11:00 AM INDICATION: Cervical myelopathy COMPARISON: None available. TECHNIQUE: Multisequence, multiplanar MR imaging of the cervical spine was performed without intraven ous contrast. FINDINGS: Evaluation is significantly degraded by motion artifact. There is reversal the normal cervical lordosis centered at C3-C4. Minimal retrolisthesis of C3 on C4, C4 on C5 and C5 on C6. Limited evaluation of the cord secondary to motion. Marrow signal is difficul t to interpret given degree of motion. Modic type II endplate degenerative changes identified at C3-C 4, C4-C5 and C5-C6. Posterior fossa is normal in appearance. Vertebral artery flow voids are maintain ed. Skull base is intact. Craniocervical junction is normal. Atlantoaxial articulation appears intact . C2-C3: Disc is normal in configuration. Moderate facet arthropathy. No neuroforaminal or spinal canal stenosis. C3-C4: This posterior disc osteophyte complex. Mild facet arthropathy. Mild to moderate uncovertebral joint disease. No obvious mild bilateral neuroforaminal stenosis. Mild spinal canal stenosis without definite cord. C4-C5: There is a posterior disc osteophyte complex with central disc extrusion. Mild facet arthropat hy. Moderate uncovertebral joint disease. Moderate right and mild left neuroforaminal stenosis. Moder ate spinal canal stenosis. C5-C6: There is a posterior disc osteophyte complex with central disc protrusion. Moderate facet and uncovertebral joint disease. Severe right and moderate left neuroforaminal stenosis. Moderate spinal canal stenosis, exacerbated by the metal from infolding. Limited evaluation for cord signal. C6-C7: No significant disc herniation. Mild disc bulge. Mild facet and uncovertebral joint disease. M ild bilateral neuroforaminal stenosis. No significant spinal canal stenosis. C7-T1: Disc is normal configuration. No neuroforaminal or spinal canal stenosis. IMPRESSION: Limited examination secondary to motion artifact. Moderate cervical spondylosis as described in vilma hart above. If there is future surgical planning considered, repeat evaluation with sedation could be of benefit. Electronically signed by: Yue Fuller MD (05/27/2021 1:38 PM) [id number]
== END ==
LOC: KCIC MRI 10:49
PROVIDERS: ATTEND Internal Medicine
DX: M47.12 Other spondylosis with myelopathy, cervical region (principal); M50.021 Cervical disc disorder at C4-C5 level with myelopathy; M50.022 Cervical disc disorder at C5-C6 level with myelopathy; M25.78 Osteophyte, vertebrae; M48.02 Spinal stenosis, cervical region
CPT/HCPCS: 72141

== ENCOUNTER 2021-09-07 09:32 | Outpatient (CLI) | payer MEDICARE, OTHER ==
[~2021-09-07 09:32] MED LIST changes: +IV RINGERS,LACTATED 1000ML 1,000 ML IV SCH; +KETAMINE HCL IN NACL, ISO-OSM 50 MG/5 ML SYRINGE ONE; +LIDOCAINE 2% PF 5 ML VIAL. ONE; +MIDAZOLAM HCL/PF 2 MG/2 ML VIAL. ONE; +PHENYLEPHRINE in 0.9% NACL PF 1 MG/10 ML SYRINGE. IV ONE; +PROPOFOL 10 MG/ML (20ML) VIAL. IV ONE; +ePHEDrine PF IN SALINE 50 MG/10 ML SYRINGE. IV ONE
[2021-09-07 10:59] VITALS: BP 200/101
--- NOTE | 2021-09-07 13:55 | RAD ---
EXAMINATION: Magnetic resonance imaging (MRI) of the cervical spine without contrast 09/07/2021 11:17 AM HISTORY: Radicular neck pain. TECHNIQUE: Multiplanar multi-weighted MRI of the cervical spine was performed without intravenous con trast using the standard cervical spine protocol. Contrast information: None administered COMPARISON: MRI cervical spine 729. FINDINGS/ IMPRESSION: Nondiagnostic examination secondary to extensive motion. Consideration may be given for myelogram jesse luation as length of study may be shorter. Electronically signed by: Yue Fuller MD (09/07/2021 1:53 PM) [email or web address]
== END 2021-09-07 11:05 | disposition home or self-care (01) ==
LOC: MRI 09:32
PROVIDERS: ATTEND Neurological Surgery
DX: M54.2 Cervicalgia (principal); I10 Essential (primary) hypertension; E78.00 Pure hypercholesterolemia, unspecified; F41.9 Anxiety disorder, unspecified; K21.9 Gastro-esophageal reflux disease without esophagitis; Z79.899 Other long term (current) drug therapy; Z98.890 Other specified postprocedural states; Z88.8 Allergy status to other drugs, medicaments and biological substances
CPT/HCPCS: 72141; J2250; J2370; J2704; J7120